=== PATIENT | male | born 1945 | race Caucasian/White ===

== ENCOUNTER 2019-01-12 23:00 | Emergency (ER) | payer MEDICAID, MEDICARE ==
[~2019-01-12] VITALS: Wt 92.0 kg
[~2019-01-12 23:00] MED LIST: amiodarone; metoprolol
== END 2019-01-12 23:30 | disposition left against medical advice (07) ==
LOC: E/R 23:00
DX: Z53.21 Procedure and treatment not carried out due to patient leaving prior to being seen by health care provider (principal)

== ENCOUNTER 2019-02-27 11:46 | Inpatient (IN) | payer MEDICARE, MEDICAID ==
[~2019-02-27] VITALS: Ht 180.3 cm; Wt 83.4 kg
[2019-02-27 11:47] VITALS: Ht 180.3 cm; Wt 83.4 kg
[2019-02-27] MEDS ORDERED: ASPIRIN 325 MG TAB PO ONE (13:00)
[2019-02-27] MEDS ORDERED: ASPIRIN 300 MG SUPP PR ONE (13:00)
[2019-02-27] MEDS ORDERED: ONDANSETRON 4 MG INJ IV PRN ×2 (13:00→14:00)
[2019-02-27] MEDS ORDERED: ACETAMINOPHEN 325 MG TAB PO PRN ×2 (13:00→14:00)
[2019-02-27] MEDS ORDERED: METO-429 PO (13:03)
[2019-02-27] MEDS ORDERED: DOXA4TAB3 PO (13:03)
[2019-02-27] MEDS ORDERED: DIVA-75 PO (13:03)
[2019-02-27] MEDS ORDERED: PRAV10TA43 PO (13:04)
[2019-02-27] MEDS ORDERED: QUET25TA33 PO (13:04)
[2019-02-27] MEDS ORDERED: DUTA0.5C PO (13:05)
[2019-02-27] MEDS ORDERED: ISEN400 PO (13:06)
[2019-02-27] MEDS ORDERED: ABAC1TAB14 PO (13:06)
[2019-02-27] MEDS ORDERED: AMIO200T4 PO (13:07)
--- NOTE | 2019-02-27 13:44 | ERD ---
ER Documentation Chief Complaint Chief Complaint FALL X 4 DAYS AGO , LT SIDE FACAIL DROOP NOTED , PALE HPI Patient is a 73-year-old male with coronary disease and hypertension who presents with a fall. The patient had a fall 4 days ago in the bathroom. He lives alone. He could get off the floor. He called the family member today. The family member reports that he had "slurred speech and trouble with walking and with writing". Upon review of old medical records this is the patient's fourth visit to the ER since 2012. The family members are concerned for stroke. The patient does not member the name of his primary doctor. ROS All systems reviewed and are negative except as per history of present illness. Medications Home Meds Reported Medications Amiodarone Hcl* (Amiodarone Hcl*) 200 Mg Tablet, 200 MG PO DAILY, #30 TAB 02/27/19 Raltegravir Potassium* (Isentress*) 400 Mg Tablet, 400 MG PO BID, TAB 02/27/19 Abacavir Sulfate/Lamivudine (Abacavir-Lamivudine 600-300 mg) 1 Each Tablet, 1 TAB PO DAILY 02/27/19 Dutasteride* (Avodart*) 0.5 Mg Capsule, 0.5 MG PO DAILY, CAP 02/27/19 Quetiapine Fumarate* (Quetiapine Fumarate*) 25 Mg Tablet, 25 MG PO BID, TAB 02/27/19 Pravastatin Sodium* (Pravastatin Sodium*) 10 Mg Tablet, 10 MG PO HS, TAB 02/27/19 Doxazosin Mesylate* (Doxazosin Mesylate*) 4 Mg Tablet, 4 MG PO HS, TAB 02/27/19 Metoprolol Tartrate* (Lopressor*) 50 Mg Tab, 50 MG PO BID, #60 TAB 02/27/19 Divalproex Sodium* (Depakote ER*) 500 Mg Tabsr, 500 MG PO BID, #30 TAB.SA 02/27/19 Discontinued Reported Medications [metoprolol] No Conflict Check 04/22/13 [amiodarone] No Conflict Check 04/22/13 Allergies Allergies: Coded Allergies: No Known Allergy (Unverified , 02/27/19) PMhx/Soc History of Surgery: No Anesthesia Reaction: No Hx Neurological Disorder: No Hx Respiratory Disorders: No Hx Cardiac Disorders: Yes (HTN,) Hx Psychiatric Problems: No Hx Miscellaneous Medical Probl: Yes (HIV,htn,BPH,nicotine,substance and ETOH addiction) Hx Alcohol Use: No Hx Substance Use: No Hx Tobacco Use: No Smoking Status: Unknown if ever smoked FmHx Family History: No diabetes Physical Exam Vitals Vital Signs Date Temp Pulse Resp B/P (MAP) Pulse Ox O2 O2 Flow FiO2 Time Delivery Rate 02/27/19 90 16 112/68 96 Nasal 2.0 12:55 (83) Cannula 02/27/19 Nasal 2 12:55 Cannula 02/27/19 97.7 98 18 82/60 (67) 98 11:47 Physical Exam Const: No acute distress Head: Atraumatic Eyes: Normal Conjunctiva ENT: Mild left-sided facial droop Neck: Full range of motion. No meningismus. Resp: Clear to auscultation bilaterally Cardio: Regular rate and rhythm, no murmurs Abd: Soft, non tender, non distended. 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 Result Diagram: 02/27/19 1216 02/27/19 1215 Results 24 hrs Laboratory Tests Test 02/27/19 12:15 02/27/19 12:16 Prothrombin Time 14.0 Sec Prothrombin Time Ratio 1.1 INR International Normalized Ratio 1.07 Activated Partial Thromboplast Time 26.8 Sec Sodium Level 129 mmol/L Potassium Level 4.0 mmol/L Chloride Level 94 mmol/L Carbon Dioxide Level 24 mmol/L Anion Gap 11 Blood Urea Nitrogen 84 mg/dl Creatinine 5.11 mg/dl Est Glomerular Filtrat Rate mL/min mL/min Glucose Level 125 mg/dl Calcium Level 8.8 mg/dl Troponin I 0.025 ng/ml Triglycerides Level 180 mg/dl Cholesterol Level 99 mg/dl LDL Cholesterol, Calculated 49 mg/dl HDL Cholesterol 14 mg/dl Cholesterol/HDL Ratio 7.0 RATIO White Blood Count 14.2 10^3/ul Red Blood Count 3.67 10^6/ul Hemoglobin 11.8 g/dl Hematocrit 33.2 % Mean Corpuscular Volume 90.5 fl Mean Corpuscular Hemoglobin 32.2 pg Mean Corpuscular Hemoglobin Concent 35.5 g/dl Red Cell Distribution Width 14.6 % Platelet Count 349 10^3/UL Mean Platelet Volume 10.2 fl Immature Granulocytes % 10.800 % Neutrophils % 69.7 % Lymphocytes % 10.8 % Monocytes % 8.2 % Eosinophils % 0.5 % Basophils % 0.0 % Nucleated Red Blood Cells % 0.0 /100WBC Immature Granulocytes # 1.530 10^3/ul Neutrophils # 9.9 10^3/ul Lymphocytes # 1.5 10^3/ul Monocytes # 1.2 10^3/ul Eosinophils # 0.1 10^3/ul Basophils # 0.0 10^3/ul Nucleated Red Blood Cells # 0.0 10^3/ul Hemoglobin A1c 6.1 % Current Medications Medications Dose Sig/Faith Start Time Status Last (Trade) Ordered Route PRN Stop Time Admin Dose Reason Admin Aspirin 325 mg ONCE ONCE 02/27/19 DC (Aspirin) PO 13:00 02/27/19 13:00 Ondansetron 4 mg ER BRIDGE 02/27/19 HCl (Zofran PRN IV 13:00 Inj) NAUSEA/VOMITI 02/28/19 12:59 NG 650 mg ER BRIDGE 02/27/19 Acetaminophen PRN PO 13:00 (Tylenol .MILD PAIN 02/28/19 12:59 Tab) 1-3 OR TEMP Aspirin 300 mg ONCE ONCE 02/27/19 DC (Aspirin) OH 13:00 02/27/19 13:01 Procedures/MDM CT brain read by radiology shows no bleed. Chest x-ray read by radiology. EKG read by me: Rate/Rhythm: Regular rate and rhythm at a regular rate Intervals: Normal Impression: Nonspecific T wave changes Patient is a 73-year-old male who presents with what appears to be an acute stroke. The symptoms started 4 days ago and he is outside the window for IV TPA or mechanical retrieval. He failed a swallow evaluation done by nursing so he was kept n.p.o. and the patient was given aspirin per rectum. NIH stroke scale was performed by nursing. Patient was found to have acute renal failure with a creatinine of over 5 and previous creatinines were approximately 1. CT brain shows no sign of brain mass or bleeding. The patient will be admitted to the care of Dr. López from the panel team to a telemetry inpatient bed. Critical Care: Time: 35 minutes excluding all billable procedures. Treatments/Evaluations: Close monitoring and treatment of unstable vital signs, cardiorespiratory, and neurologic status, while maintaining tight balance of fluid, respiratory, and cardiac interventions. Departure Diagnosis: Primary Impression: Stroke CVA mechanism: unspecified Qualified Codes: I63.9 - Cerebral infarction, unspecified Additional Impressions: ARF (acute renal failure) Acute renal failure type: unspecified Qualified Codes: N17.9 - Acute kidney failure, unspecified Hyponatremia Fall Encounter type: initial encounter Qualified Codes: W19.XXXA - Unspecified fall, initial encounter Condition: Serious NEWTON JAIME MD Feb 27, 2019 13:44
[2019-02-27] MEDS ORDERED: DEXTROSE 5%-0.45% NACL 1,000 ML IV SCH (13:45)
[2019-02-27] MEDS ORDERED: NACL 0.9% 3 ML SYG IV SCH (14:00)
[2019-02-27] MEDS ORDERED: DOCUSATE SODIUM 100 MG CAP PO PRN (14:00)
[2019-02-27] MEDS ORDERED: traMADol 50 MG TAB PO PRN (15:00)
[2019-02-27] MEDS ORDERED: CEFTRIAXONE 1 GM/50 ML (PMX) 50 ML IVPB SCH (15:30)
--- NOTE | 2019-02-27 15:43 | HP ---
Date/Time of Note Date/Time of Note DATE: 02/27/19 TIME: 15:19 Assessment/Plan VTE Prophylaxis SCD applied (from Nsg): Yes Pharmacological prophylaxis: NA/contraindicated Pharm contraindication: other Lines/Catheters IV Catheter Type (from Nrsg): Saline Lock Assessment/Plan Assessment/Plan 1. Slurred speech - concern for CVA but outside tPA given last known well time was 4 days ago - CT head negative for acute issues - Will check MRI head but will need to hold off on MRA given renal impairment - ECHO with bubble ordered - US carotids negative for stenosis - Speech/PT/OT ordered - continue on aspirin and statin 2. Acute renal failure - Renal US shows mild hydro and medical renal disease - Nephrology consultation was placed - Most likely prerenal given patient has not had PO intake in 4 days - will start LR for resuscitation and monitor for improvement in renal function - avoid nephrotoxic agents 3. Hypovolemic hyponatremia - IVF on board - will monitor 4. Prediabetes - diet modification - A1c noted 5. HIV - on HAART therapy - will consult ID for medication management - CD4 ordered 6. UTI - patient denies any complaints but Ua results noted - will check UCx - on Rocephin 7. BPH - continue home medications 8. sore throat - PRN cough drops 9. h/o Arrhythmia - hold all meds for permissive HTN in setting of ?CVA 10. HTN - holding home medications for now. will allow for permissive HTN. awaiting MRI results 11. Diet - NPO for now - await bedside evaluation 12. Disposition - Admit to telemetry for workup of acute slurred speech and renal failure Result Diagram: 02/27/19 1216 02/27/19 1215 Results 24hrs Laboratory Tests Test 02/27/19 12:15 02/27/19 12:16 02/27/19 13:57 Prothrombin Time 14.0 Prothrombin Time Ratio 1.1 INR International Normalized Ratio 1.07 Activated Partial Thromboplast Time 26.8 Sodium Level 129 L Potassium Level 4.0 Chloride Level 94 L Carbon Dioxide Level 24 Anion Gap 11 Blood Urea Nitrogen 84 H Creatinine 5.11 H Est Glomerular Filtrat Rate mL/min Glucose Level 125 Calcium Level 8.8 Troponin I 0.025 Triglycerides Level 180 H Cholesterol Level 99 L LDL Cholesterol, Calculated 49 HDL Cholesterol 14 L Cholesterol/HDL Ratio 7.0 White Blood Count 14.2 H Red Blood Count 3.67 L Hemoglobin 11.8 L Hematocrit 33.2 L Mean Corpuscular Volume 90.5 Mean Corpuscular Hemoglobin 32.2 Mean Corpuscular Hemoglobin Concent 35.5 Red Cell Distribution Width 14.6 H Platelet Count 349 Mean Platelet Volume 10.2 Immature Granulocytes % 10.800 H Neutrophils % 69.7 Segmented Neutrophils % (Manual) 71 Band Neutrophils % (Manual) 2 Lymphocytes % 10.8 L Lymphocytes % (Manual) 11 L Reactive Lymphocytes % (Manual) 3 H Monocytes % 8.2 Monocytes % (Manual) 10 Eosinophils % 0.5 Basophils % 0.0 Myelocytes % (Manual) 2 H Promyelocytes % (Manual) 1 H Nucleated Red Blood Cells % 0.0 Immature Granulocytes # 1.530 H Neutrophils # 9.9 H Neutrophils # (Manual) 10.1 H Band Neutrophils # 0.2 Lymphocytes (Manual) 1.5 Lymphocytes # 1.5 Reactive Lymphocytes # 0.4 H Monocytes # 1.2 H Monocytes # (Manual) 1.4 H Eosinophils # 0.1 Basophils # 0.0 Myelocytes # 0.2 H Promyelocytes # 0.1 H Nucleated Red Blood Cells # 0.0 Platelet Estimate NORMAL Anisocytosis 1+ Hemoglobin A1c 6.1 H Urine Color YELLOW Urine Clarity CLOUDY A Urine pH 5.0 Urine Specific [place] 1.006 Urine Ketones NEGATIVE Urine Nitrite NEGATIVE Urine Bilirubin NEGATIVE Urine Urobilinogen NEGATIVE Urine Leukocyte Esterase 3+ H Urine Microscopic RBC 14 H Urine Microscopic WBC > 182 H Urine Bacteria FEW A Urine Hemoglobin 2+ H Urine Glucose NEGATIVE Urine Total Protein NEGATIVE Urine Opiates Screen Negative Urine Barbiturates Negative Urine Amphetamines Screen Negative Urine Benzodiazepines Screen Negative Urine Cocaine Screen Negative Urine Cannabinoids Negative HPI/ROS Admit Date/Time Admit Date/Time 02/27/19 Hx of Present Illness 73 yo M with PMH HIV, hypertension, BPH, arrhythmia and multiple falls presented to ED after being found down after 4 days and noted with gait instability and slurred speech. Patient states he has fallen 3 times but cannot specify within what time frame. States he has been down for about 3 or 4 days and called his sister in law this am for Tylenol due to pain. Family at bedside and assisting with history. She states when she got to his home, she was calling out for him for awhile. When he opened the door she noticed unsteady gait and slurred speech. She convinced him to go to the ED for evaluation. Patient does not recall events leading up to fall but does admit he has been having difficulty speaking as well as texting for the past 3 days. He has not taken his medications or consumed any PO intake at this time as well. Patient admits to pain in mid back but denies any headaches, chest pain, shortness of breath, nausea, vomiting, abdominal pain, or urinary issues. Does admit to diminished appetite. Patient is confusing the name of his sister in law and having difficulty constructing full sentences. ROS All 12 systems reviewed and pertinent positives as per HPI. All others negat yeimi. Constitutional: No fatigue, No nausea Eyes: No discharge ENT: sore throat Respiratory: No pain, No cough, No shortness of breath, No sputum, No wheezing Cardiovascular: No chest pain, No lightheadedness, No palpitations Gastrointestinal: decreased appetite; No pain, No constipation, No diarrhea, No nausea, No vomiting Genitourinary: other (BPH) Musculoskeletal: back pain Skin: laceration Neurologic: confusion; No focal-weakness, No headache, No syncope Endocrine: no complaints Lymphatic: no complaints Psychological: nl mood/affect Immunologic: no complaints PMH/Family/Social Past Medical History Medical History: hypertension, other (BPH, HIV, arrhythmia) Medications Current Medications Ondansetron HCl (Zofran Inj) 4 mg ER BRIDGE PRN IV NAUSEA/VOMITING; Start 02/27/19 at 13:00; Stop 02/28/19 at 12:59 Acetaminophen (Tylenol Tab) 650 mg ER BRIDGE PRN PO .MILD PAIN 1-3 OR TEMP; Start 02/27/19 at 13:00; Stop 02/28/19 at 12:59 Abacavir/ Lamivudine (Epzicom) 1 tab DAILY PO ; Start 02/28/19 at 09:00; Status UNV Divalproex Sodium (Depakote Er) 500 mg BID PO ; Start 02/27/19 at 21:00; Status UNV Doxazosin Mesylate (Cardura) 4 mg HS PO ; Start 02/27/19 at 21:00; Status UNV Dutasteride (Avodart) 0.5 mg DAILY PO ; Start 02/28/19 at 09:00; Status UNV Quetiapine Fumarate (Seroquel) 25 mg BID PO ; Start 02/27/19 at 21:00; Status UNV Miscellaneous Medication (Isentress) 400 mg BID PO ; Start 02/27/19 at 21:00; Status UNV Miscellaneous Information 10 mg HS PO ; Start 02/27/19 at 21:00; Status UNV IV Flush (NS 3 ml) 3 ml PER PROTOCOL IV ; Start 02/27/19 at 14:00 Ondansetron HCl (Zofran Inj) 4 mg Q6H PRN IV NAUSEA/VOMITING; Start 02/27/19 at 14:00 Aspirin (Aspirin) 81 mg DAILY PO ; Start 02/28/19 at 09:00 Acetaminophen (Tylenol Tab) 650 mg Q6H PRN PO .PAIN 1-3 OR TEMP; Start 02/27/19 at 14:00 Docusate Sodium (Colace) 100 mg Q12H PRN PO .CONSTIPATION; Start 02/27/19 at 14:00 Magnesium Hydroxide (Milk Of Mag) 30 ml DAILY PRN PO .CONSTIPATION; Start 02/27/19 at 14:00 Famotidine (Pepcid Iv) 20 mg Q12 IV ; Start 02/27/19 at 21:00; Status UNV Lactated Ringer's 1,000 ml @ 100 mls/hr Q10H IV ; Start 02/27/19 at 14:00; Status UNV Tramadol HCl (Ultram) 50 mg Q6H PRN PO MODERATE PAIN LEVEL 4-6; Start 02/27/19 at 15:00; Status UNV Coded Allergies: No Known Allergy (Unverified , 02/27/19) Past Surgical History Past Surgical Hx: other (hernia repair december at [facility]) Family History Significant Family History: no pertinent family hx Social History Alcohol Use: none Smoking Status: Never smoker Drug Use: none Exam/Review of Systems Vital Signs Vitals Vital Signs Date Temp Pulse Resp B/P (MAP) Pulse Ox O2 O2 Flow FiO2 Time Delivery Rate 02/27/19 90 16 112/68 96 Nasal 2.0 12:55 (83) Cannula 02/27/19 97.7 11:47 Exam Exam General: Patient is well-developed well-nourished, no acute distress. mild confusion HEENT: Atraumatic, normocephalic. The pupils are equal, round and reactive. Extraocular motor are intact Neck: Supple with full range of motion. No rigidity or meningismus Chest: Nontender Lungs: Clear to auscultation bilaterally no crackles rales or wheezing Heart: Normal S1-S2, Regular rhythm and rate. No murmur, S3, or S4 Abdomen: Soft , nontender, nondistended , bowel sounds are present. No guarding no rebound tenderness , No masses or organomegaly. No costovertebral temporal angle mass Extremities: Normal to inspection, no edema no cyanosis Skin: abrasions on left forearm Neurologic: Slurred speech, cranial nerves II through XII are intact, motor and sensory are intact, no focal weakness Additional Comments Home medications reviewed PROCEDURE: US Carotids. CLINICAL INDICATION: Stroke. Bruit TECHNIQUE: Multiple sonographic of the carotid arteries were obtained utilizing morales scale imaging. Color and Doppler imaging was performed. The images were reviewed on a PACS workstation. COMPARISON: No prior studies are available for comparison. FINDINGS: RIGHT: CCA 76.5 cm/sec Prox ICA 41.1 cm/sec Mid ICA 42.6 cm/sec Dist ICA 30.7 cm/sec ECA 32.9 cm/sec ICA/CCA 0.9 LEFT: CCA 74.4 cm/sec Prox ICA 33.2 cm/sec Mid ICA 43.4 cm/sec Dist ICA 51.9 cm/sec ECA 53.9 cm/sec ICA/CCA 1.0 Antegrade flow is seen within the vertebral arteries bilaterally. Mild plaque is seen within the carotid system bilaterally. However, no evidence for hemodynamically significant stenosis or occlusion is identified. IMPRESSION: 1. Mild soft and calcific plaque without evidence for hemodynamically significant stenosis or occlusion by NASCET criteria. 2. Antegrade flow seen within the vertebral arteries bilaterally. Please note: The validated velocity measurements with angiographic measurements, velocity criteria are extrapolated from diameter data as defined by the Society of Radiologists in Ultrasound Consensus Conference Radiology 2003; 229;340-346. This study does indirectly reference the measurement of the distal ICA diameter as the denominator for stenosis measurement. RPTAT: HH .Ashley Diaz MD, MD Date Time Electronically viewed and signed by .Ashley Diaz MD, on 02/27/2019 14:51 PROCEDURE: CT Brain without contrast. CLINICAL INDICATION: Stroke TECHNIQUE: CT scan of the brain was performed on a multidetector high- resolution CT scan. Axial imaging was obtained of the brain without contrast administration. Coronal and sagittal reformatted images were obtained from the axial source images. Standard CT scan of the head without contrast protocols were performed. The total exam CTDI equals 38.38 mGy and the total exam DLP equals 634.23 mGy- cm. One or more of the following dose reduction techniques were used: - Automated exposure control. - Adjustment of the mA and/or kV according to patient size. Use of iterative reconstruction technique. Dicom images are available COMPARISON: CT head without contrast 04/22/2013 FINDINGS: There is streak motion artifact degrading optimal evaluation. The ventricular system and peripheral CSF spaces are proportionate prominent consistent with mo derate generalized cerebral and cerebellar volume loss. Mild periventricular deep white matter changes that is nonspecific and consistent with chronic microvascular ischemic disease. No evidence of intracranial masses hemorrhages or midline shift. Morales-white matter differentiation is unremarkable. The bones of the calvarium are intact. Visualized paranasal sinuses and mastoids are unremarkable. Calcific atherosclerotic vascular disease of the distal vertebral arteries and cavernous carotid arteries per IMPRESSION: 1. Artifact degrading optimal evaluation. 2. Moderate generalized cerebral and cerebellar volume loss and mild nonspecific chronic microvascular ischemic disease. 3. No evidence of intracranial masses hemorrhages or midline shift. Addendum: Dr. Downey was telephoned this results on 02/27/2019 at 1230 hours. RPTAT:AAJJ Physician Emperatriz Date Time Electronically viewed and signed by Physician Emperatriz on 02/27/2019 12:41 PROCEDURE: XR Chest. CLINICAL INDICATION: Chest pain. TECHNIQUE: Single frontal radiograph. COMPARISON: CR CHEST 04/22/2013. FINDINGS: Bibasilar atelectasis with retrocardiac atelectasis/consolidation and/or small left pleural effusion. The cardiac silhouette is enlarged and/or magnified in the context of low lung volumes. IMPRESSION: Bibasilar atelectasis with retrocardiac atelectasis/consolidation and/or small left pleural effusion. RPTAT: EE .Lawrence Euceda MD, Date Time Electronically viewed and signed by .Lawrence Euceda MD, on 02/27/2019 12:28 PROCEDURE: US Renal CLINICAL INDICATION: Renal failure TECHNIQUE: Multiple sonographic images of the kidneys and bladder were obtained. Evaluation of the kidneys and bladder was performed as well with morales scale and color and Doppler evaluation using a curved array transducer. The images were reviewed on a high-resolution PACS workstation. COMPARISON: No prior studies are available for comparison. FINDINGS: The right kidney measures 12.5 cm in length. There is mild right hydronephrosis. The left kidney measures 11.3 cm in length. The renal parenchyma demonstrates increased echogenicity. No perinephric fluid collection is seen. The bladder is under distended, but otherwise unremarkable. IMPRESSION: 1. Mild right hydronephrosis. 2. Echogenic kidneys suggesting medical renal disease. RPTAT: .Ashley Diaz MD, Date Time Electronically viewed and signed by .Ashley Diaz MD, on 02/27/2019 14:53 RAIN CARSON MD Feb 27, 2019 15:43
--- NOTE | 2019-02-27 16:35 | HP ---
Date/Time of Note Date/Time of Note DATE: 02/27/19 TIME: 16:26 Assessment/Plan VTE Prophylaxis SCD applied (from Nsg): Yes Lines/Catheters IV Catheter Type (from Nrsg): Saline Lock Assessment/Plan Result Diagram: 02/27/19 1216 02/27/19 1215 Results 24hrs Laboratory Tests Test 02/27/19 12:15 02/27/19 12:16 02/27/19 13:57 Prothrombin Time 14.0 Prothrombin Time Ratio 1.1 INR International Normalized Ratio 1.07 Activated Partial Thromboplast Time 26.8 Sodium Level 129 L Potassium Level 4.0 Chloride Level 94 L Carbon Dioxide Level 24 Anion Gap 11 Blood Urea Nitrogen 84 H Creatinine 5.11 H Est Glomerular Filtrat Rate mL/min Glucose Level 125 Calcium Level 8.8 Troponin I 0.025 Triglycerides Level 180 H Cholesterol Level 99 L LDL Cholesterol, Calculated 49 HDL Cholesterol 14 L Cholesterol/HDL Ratio 7.0 White Blood Count 14.2 H Red Blood Count 3.67 L Hemoglobin 11.8 L Hematocrit 33.2 L Mean Corpuscular Volume 90.5 Mean Corpuscular Hemoglobin 32.2 Mean Corpuscular Hemoglobin Concent 35.5 Red Cell Distribution Width 14.6 H Platelet Count 349 Mean Platelet Volume 10.2 Immature Granulocytes % 10.800 H Neutrophils % 69.7 Segmented Neutrophils % (Manual) 71 Band Neutrophils % (Manual) 2 Lymphocytes % 10.8 L Lymphocytes % (Manual) 11 L Reactive Lymphocytes % (Manual) 3 H Monocytes % 8.2 Monocytes % (Manual) 10 Eosinophils % 0.5 Basophils % 0.0 Myelocytes % (Manual) 2 H Promyelocytes % (Manual) 1 H Nucleated Red Blood Cells % 0.0 Immature Granulocytes # 1.530 H Neutrophils # 9.9 H Neutrophils # (Manual) 10.1 H Band Neutrophils # 0.2 Lymphocytes (Manual) 1.5 Lymphocytes # 1.5 Reactive Lymphocytes # 0.4 H Monocytes # 1.2 H Monocytes # (Manual) 1.4 H Eosinophils # 0.1 Basophils # 0.0 Myelocytes # 0.2 H Promyelocytes # 0.1 H Nucleated Red Blood Cells # 0.0 Platelet Estimate NORMAL Anisocytosis 1+ Hemoglobin A1c 6.1 H Creatine Kinase 271 H Urine Color YELLOW Urine Clarity CLOUDY A Urine pH 5.0 Urine Specific [place] 1.006 Urine Ketones NEGATIVE Urine Nitrite NEGATIVE Urine Bilirubin NEGATIVE Urine Urobilinogen NEGATIVE Urine Leukocyte Esterase 3+ H Urine Microscopic RBC 14 H Urine Microscopic WBC > 182 H Urine Bacteria FEW A Urine Hemoglobin 2+ H Urine Glucose NEGATIVE Urine Total Protein NEGATIVE Urine Opiates Screen Negative Urine Barbiturates Negative Urine Amphetamines Screen Negative Urine Benzodiazepines Screen Negative Urine Cocaine Screen Negative Urine Cannabinoids Negative HPI/ROS Admit Date/Time Admit Date/Time 02/27/19 Hx of Present Illness 73 yo M with PMH HIV, hypertension, BPH, arrhythmia and multiple falls presented to ED after being found down after 4 days and noted with gait instability and slurred speech. Patient states he has fallen 3 times but cannot specify within what time frame. States he has been down for about 3 or 4 days and called his sister in law this am for Tylenol due to pain. Family at bedside and assisting with history. She states when she got to his home, she was calling out for him for awhile. When he opened the door she noticed unsteady gait and slurred speech. She convinced him to go to the ED for evaluation. Patient does not recall events leading up to fall but does admit he has been having difficulty speaking as well as texting for the past 3 days. He has not taken his medicatio ns or consumed any PO intake at this time as well. Patient admits to pain in mid back but denies any headaches, chest pain, shortness of breath, nausea, vomiting, abdominal pain, or urinary issues. Does admit to diminished appetite. Patient is confusing the name of his sister in law and having difficulty constructing full sentences. ROS All 12 systems reviewed and pertinent positives as per HPI. All others negative. Constitutional: disoriented; No fatigue, No nausea Eyes: No discharge ENT: No congestion Respiratory: No cough, No shortness of breath, No sputum, No wheezing Cardiovascular: No chest pain, No lightheadedness, No palpitations Gastrointestinal: No pain, No constipation, No diarrhea, No nausea, No vomiting Genitourinary: no complaints Musculoskeletal: back pain Skin: laceration Neurologic: confusion; No focal-weakness, No headache Endocrine: no complaints Lymphatic: no complaints Psychological: nl mood/affect Immunologic: no complaints PMH/Family/Social Past Medical History Medical History: hypertension, other (BPH, HIV, arrhythmia) Medications Current Medications Ondansetron HCl (Zofran Inj) 4 mg ER BRIDGE PRN IV NAUSEA/VOMITING; Start 02/27/19 at 13:00; Stop 02/28/19 at 12:59 Acetaminophen (Tylenol Tab) 650 mg ER BRIDGE PRN PO .MILD PAIN 1-3 OR TEMP; Start 02/27/19 at 13:00; Stop 02/28/19 at 12:59 Abacavir/ Lamivudine (Epzicom) 1 tab DAILY PO ; Start 02/28/19 at 09:00; Status UNV Divalproex Sodium (Depakote Er) 500 mg BID PO ; Start 02/27/19 at 21:00; Status UNV Doxazosin Mesylate (Cardura) 4 mg HS PO ; Start 02/27/19 at 21:00; Status UNV Dutasteride (Avodart) 0.5 mg DAILY PO ; Start 02/28/19 at 09:00; Status UNV Quetiapine Fumarate (Seroquel) 25 mg BID PO ; Start 02/27/19 at 21:00; Status UNV Miscellaneous Medication (Isentress) 400 mg BID PO ; Start 02/27/19 at 21:00; Status UNV Miscellaneous Information 10 mg HS PO ; Start 02/27/19 at 21:00; Status UNV IV Flush (NS 3 ml) 3 ml PER PROTOCOL IV ; Start 02/27/19 at 14:00 Ondansetron HCl (Zofran Inj) 4 mg Q6H PRN IV NAUSEA/VOMITING; Start 02/27/19 at 14:00 Aspirin (Aspirin) 81 mg DAILY PO ; Start 02/28/19 at 09:00 Acetaminophen (Tylenol Tab) 650 mg Q6H PRN PO .PAIN 1-3 OR TEMP; Start 02/27/19 at 14:00 Docusate Sodium (Colace) 100 mg Q12H PRN PO .CONSTIPATION; Start 02/27/19 at 14:00 Magnesium Hydroxide (Milk Of Mag) 30 ml DAILY PRN PO .CONSTIPATION; Start 02/27/19 at 14:00 Famotidine (Pepcid Iv) 20 mg Q12 IV ; Start 02/27/19 at 21:00; Status UNV Lactated Ringer's 1,000 ml @ 100 mls/hr Q10H IV ; Start 02/27/19 at 14:00; Status UNV Tramadol HCl (Ultram) 50 mg Q6H PRN PO MODERATE PAIN LEVEL 4-6; Start 02/27/19 at 15:00; Status UNV Coded Allergies: No Known Allergy (Unverified , 02/27/19) Past Surgical History Past Surgical Hx: other (hernia repair tian at [facility]) Family History Significant Family History: no pertinent family hx Social History Alcohol Use: none Smoking Status: Never smoker Drug Use: none Exam/Review of Systems Vital Signs Vitals Vital Signs Date Temp Pulse Resp B/P (MAP) Pulse Ox O2 O2 Flow FiO2 Time Delivery Rate 02/27/19 90 16 112/68 96 Nasal 2.0 12:55 (83) Cannula 02/27/19 97.7 11:47 Exam Exam General: Patient is well-developed well-nourished. no acute distress. slurred speech and pleasantly confused HEENT: Atraumatic, normocephalic. The pupils are equal, round and reactive. Extraocular motor are intact Neck: Supple with full range of motion. No rigidity or meningismus Chest: Nontender Lungs: Clear to auscultation bilaterally no crackles rales or wheezing Heart: Normal S1-S2, Regular rhythm and rate. No murmur, S3, or S4 Abdomen: Soft , nontender, nondistended , bowel sounds are present. No guarding no rebound tenderness , No masses or organomegaly. No costovertebral temporal angle mass Extremities: Normal to inspection, no edema no cyanosis Neurologic: Normal mental status, speech normal, cranial nerves II through XII are intact, motor and sensory are intact, no focal weakness RAIN CARSON MD Feb 27, 2019 16:34
[2019-02-27] MEDS: LACTATED RINGER'S 1,000 ML IV SCH (16:57)
[2019-02-27] MEDS: ABACAVIR/LAMIVUDINE TAB PO SCH (17:06)
[2019-02-27] MEDS: RALTEGRAVIR 400 MG TAB PO SCH ×2 (17:06→21:00)
[2019-02-27 18:42] VITALS: PULSE 93
[2019-02-27 20:00] VITALS: BP 131/65; PULSE 88; PULSE 89
[2019-02-27 20:40] VITALS: BP 131/65; PULSE 89; RESP 18
[2019-02-27] MEDS ORDERED: RALTEGRAVIR 400 MG TAB PO SCH (21:00)
[2019-02-27] MEDS: DIVALPROEX (ER) 500 MG TAB PO SCH (21:00)
[2019-02-27] MEDS: ATORVASTATIN 10 MG TAB PO SCH (21:00)
[2019-02-27] MEDS: QUETIAPINE 25 MG TAB PO SCH (21:00)
[2019-02-27] MEDS: DOXAZOSIN 4 MG TAB PO SCH (21:00)
[2019-02-27 23:54] VITALS: BP 105/62; PULSE 80
[2019-02-28] VITALS (11 sets, daily range): BP systolic 106–123; BP diastolic 63–74; PULSE 64–119; RESP 18–20
[2019-02-28] MEDS: LACTATED RINGER'S 1,000 ML IV SCH ×3 (02:06→17:42)
--- NOTE | 2019-02-28 05:09 | CONS ---
DATE OF ADMISSION: 02/27/2019 DATE OF CONSULTATION: 02/27/2019 TYPE OF CONSULTATION: Infectious disease. REASON FOR CONSULTATION: Antibiotic management. HISTORY OF PRESENT ILLNESS: Boogie Watters is a 73-year-old male who presents with a fall 4 days ago. His past problems include: 1. Coronary artery disease. 2. Hypertension. The patient had a fall 4 days ago in the bathroom. Family member reports that he had slurred speech and trouble with walking and writing family is concerned about the possibility of stroke. He does no t remember the name of his primary doctor. Past problems include: 1. HIV. 2. Hypertension. 3. BPH. 4. Nicotine abuse. 5. Substance abuse and alcohol addiction. Acutely, the patient comes in with slurred speech as noted. He also has a left-sided facial droop. PAST MEDICAL HISTORY: As outlined. FAMILY HISTORY: Noncontributory. SOCIAL HISTORY: He does not smoke, drink or abuse drugs at this point though in the past he did all of that. ALLERGIES: None to penicillin, sulfa or foods. MEDICATIONS: Per chart. REVIEW OF SYSTEMS: As per HPI. PHYSICAL EXAMINATION: GENERAL: The patient is in no acute distress. VITAL SIGNS: Stable. He is afebrile. SKIN: Without generalized rash. HEENT: Within normal limits. He has a mild left-sided facial droop; however. NECK: Supple. LYMPH NODES: None palpable. CHEST: Decreased breath sounds at the bases. HEART: Without murmur or gallop. ABDOMEN: Soft, nontender, nondistended, without organosplenomegaly or masses. EXTREMITIES: Without cyanosis, clubbing, or edema. RECTAL AND GENITAL: Deferred. NEUROLOGIC: He is awake. He has slurred speech. He has solutions manager strength, decreased in the left compar ed to the right. ANCILLARY LABORATORY DATA: White count 14.2, H and H 11.8/33.2, platelet count 349,000. BUN and cre atinine 84/5.1. He had 70% neutrophils. IMPRESSION AND PLAN: The patient is on Abacavir lamivudine and he is also on raltegravir which is Is entress 400 mg b.i.d. and it appears that he has had an acute stroke which started 4 days ago. He fa iled a swallow evaluation, so he was kept n.p.o. Patient also noted to have acute renal failure with BUN and creatinine of 84/5.1, which may be related to rhabdomyolysis. CT scan of the brain shows no sign of brain mass or bleeding. The patient was admitted to Dr. López with some slurred speech. M RI scan was ordered. An echo was ordered. Carotid ultrasound negative for stenosis. Renal ultrasou nd shows mild hydronephrosis, medical renal disease. Nephrology consult. The patient was placed. T he patient most likely prerenal given the patient has not had p.o. intake in 4 days. I would check f or rhabdomyolysis. The patient is on HAART therapy. CD4 count was ordered. Urinalysis was done whi ch shows 3+ leukocyte esterase, greater than 182 white cells per high powered field. The patient was started on ceftriaxone. We will continue him on current therapy. I will dictate my findings to the hospitalists. Dictated By: VENICE TOTH MD, JD/NTS Conf#: [id number] DID#: [id number] CC: RAIN LÓPEZ MD;*EndCC*
[2019-02-28] MEDS: MAGNESIUM HYDROXIDE 30ML CUP PO PRN (08:39)
[2019-02-28] MEDS: DUTASTERIDE 0.5 MG CAP PO SCH (08:40)
[2019-02-28] MEDS: QUETIAPINE 25 MG TAB PO SCH ×2 (08:40→21:10)
[2019-02-28] MEDS: ABACAVIR/LAMIVUDINE TAB PO SCH (08:40)
[2019-02-28] MEDS: ASPIRIN 81 MG TAB PO SCH (08:40)
[2019-02-28] MEDS: RALTEGRAVIR 400 MG TAB PO SCH ×2 (08:40→21:08)
[2019-02-28] MEDS: DIVALPROEX (ER) 500 MG TAB PO SCH ×2 (08:40→21:10)
[2019-02-28] MEDS: FAMOTIDINE 20 MG INJ IV SCH (08:41)
[2019-02-28] MEDS ORDERED: ABACAVIR/LAMIVUDINE TAB PO SCH (09:00)
--- NOTE | 2019-02-28 10:35 | PN ---
Date/Time of Note Date/Time of Note DATE: 02/28/19 TIME: 10:35 Assessment/Plan VTE Prophylaxis Risk score (from Nsg)>0 risk: 4 SCD applied (from Nsg): Yes Pharmacological prophylaxis: NA/contraindicated Pharm contraindication: low risk/ambulating Lines/Catheters IV Catheter Type (from Nrsg): Saline Lock Urinary Cath still in place: No Assessment/Plan Assessment/Plan 1. Slurred speech- improving - MRI head negative for acute stroke. Unable to do MRA at this time in setting of renal failure - UTI noted and may be contributing to confusion which is improving - CT head negative for acute issues - ECHO results pending - US carotids negative for stenosis - Speech/PT/OT ordered - continue on aspirin and statin 2. Acute renal failure - mild improvement in cr this am - Renal US shows mild hydro and medical renal disease - Nephrology consultation was placed - Most likely prerenal given patient has not had PO intake in 4 days - continue IVF - avoid nephrotoxic agents 3. Hypovolemic hyponatremia- resolved 4. Prediabetes - diet modification - A1c noted 5. HIV - on HAART therapy - ID consultation appreciated - CD4 ordered 6. UTI - Urine Cx pending - on Rocephin 7. BPH - continue home medications 8. sore throat - PRN cough drops 9. h/o Arrhythmia - hold all meds for permissive HTN in setting of ?CVA 10. HTN - stable off BP medications 11. Disposition - awaiting bedside swallow eval to advance diet - continue monitoring for improvement in renal function and slurred speech Result Diagram: 02/28/19 0544 02/28/19 0544 Results 24hrs Laboratory Tests Test 02/27/19 12:15 02/27/19 12:16 02/27/19 13:57 02/28/19 05:44 Prothrombin Time 14.0 Prothrombin Time 1.1 Ratio INR International 1.07 Normalized Ratio Activated 26.8 Partial Thromboplast Time Sodium Level 129 L 138 Potassium Level 4.0 3.7 Chloride Level 94 L 100 Carbon Dioxide Level 24 24 Anion Gap 11 14 H Blood Urea Nitrogen 84 H 81 H Creatinine 5.11 H 4.29 H Est Glomerular Filtrat Rate mL/min Glucose Level 125 113 Calcium Level 8.8 8.6 Troponin I 0.025 Triglycerides Level 180 H Cholesterol Level 99 L LDL Cholesterol, 49 Calculated HDL Cholesterol 14 L Cholesterol/HDL 7.0 Ratio White Blood Count 14.2 H 15.3 H Red Blood Count 3.67 L 3.88 L Hemoglobin 11.8 L 12.3 L Hematocrit 33.2 L 35.2 L Mean Corpuscular 90.5 90.7 Volume Mean Corpuscular 32.2 31.7 Hemoglobin Mean Corpuscular 35.5 34.9 Hemoglobin Concent Red Cell 14.6 H 15.2 H Distribution Width Platelet Count 349 390 Mean Platelet Volume 10.2 10.0 Immature 10.800 H 10.100 H Granulocytes % Neutrophils % 69.7 71.5 Segmented 71 74 Neutrophils % (Manual) Band Neutrophils % 2 1 (Manual) Lymphocytes % 10.8 L 9.4 L Lymphocytes % 11 L 7 L (Manual) Reactive Lymphocytes 3 H 2 H % (Manual) Monocytes % 8.2 8.3 Monocytes % (Manual) 10 9 Eosinophils % 0.5 0.1 Basophils % 0.0 0.6 Myelocytes % 2 H 1 H (Manual) Promyelocytes % 1 H (Manual) Nucleated Red Blood 0.0 0.0 Cells % Immature 1.530 H 1.540 H Granulocytes # Neutrophils # 9.9 H 10.9 H Neutrophils # 10.1 H 11.3 H (Manual) Band Neutrophils # 0.2 0.1 Lymphocytes (Manual) 1.5 1.0 Lymphocytes # 1.5 1.4 Reactive Lymphocytes 0.4 H 0.3 H # Monocytes # 1.2 H 1.3 H Monocytes # (Manual) 1.4 H 1.3 H Eosinophils # 0.1 0.0 Basophils # 0.0 0.1 Myelocytes # 0.2 H 0.1 H Promyelocytes # 0.1 H Nucleated Red Blood 0.0 0.0 Cells # Platelet Estimate NORMAL NORMAL Anisocytosis 1+ 1+ Hemoglobin A1c 6.1 H Creatine Kinase 271 H Urine Color YELLOW Urine Clarity CLOUDY A Urine pH 5.0 Urine Specific 1.006 [place] Urine Ketones NEGATIVE Urine Nitrite NEGATIVE Urine Bilirubin NEGATIVE Urine Urobilinogen NEGATIVE Urine Leukocyte 3+ H Esterase Urine Microscopic 14 H RBC Urine Microscopic > 182 H WBC Urine Bacteria FEW A Urine Hemoglobin 2+ H Urine Glucose NEGATIVE Urine Total Protein NEGATIVE Urine Opiates Screen Negative Urine Barbiturates Negative Urine Amphetamines Negative Screen Urine Negative Benzodiazepines Screen Urine Cocaine Screen Negative Urine Cannabinoids Negative Eosinophils % 1 (Manual) Metamyelocytes % 5 H (manual) Metamyelocytes # 0.7 H Toxic Granulation 1+ Magnesium Level 3.1 H Total Bilirubin 0.5 Direct Bilirubin 0.00 Indirect Bilirubin 0.5 Aspartate Amino 52 H Transf (AST/SGOT) Alanine 60 Aminotransferase (AL T/SGPT) Alkaline Phosphatase 130 H Total Protein 6.5 Albumin 2.8 L Globulin 3.70 H Albumin/Globulin 0.75 Ratio Subjective 24 Hr Interval Summary Free Text/Dictation Patient states he's feeling better this am but asking for some companionship. Still with slight slurred speech but oriented x4. Exam/Review of Systems Exam Vitals Vital Signs Date Temp Pulse Resp B/P (MAP) Pulse Ox O2 O2 Flow FiO2 Time Delivery Rate 02/28/19 95 08:00 02/28/19 97.6 18 112/63 90 07:17 (79) 02/27/19 Nasal 2.0 18:12 Cannula Exam General: Patient is well-developed well-nourished, no acute distress Neck: Supple Chest: Nontender Lungs: Clear to auscultation bilaterally no crackles rales or wheezing Heart: Normal S1-S2, Regular rhythm and rate. No murmur, S3, or S4 Abdomen: Soft , nontender, nondistended , bowel sounds are present. No guarding no rebound tenderness Extremities: Normal to inspection, no edema no cyanosis Skin: abrasions on left forearm Neurologic: Mildly slurred speech, cranial nerves II through XII are intact, motor and sensory are intact, no focal weakness Results Results 24hrs Laboratory Tests Test 02/27/19 12:15 02/27/19 12:16 02/27/19 13:57 02/28/19 05:44 Prothrombin Time 14.0 Prothrombin Time 1.1 Ratio INR International 1.07 Normalized Ratio Activated 26.8 Partial Thromboplast Time Sodium Level 129 L 138 Potassium Level 4.0 3.7 Chloride Level 94 L 100 Carbon Dioxide Level 24 24 Anion Gap 11 14 H Blood Urea Nitrogen 84 H 81 H Creatinine 5.11 H 4.29 H Est Glomerular Filtrat Rate mL/min Glucose Level 125 113 Calcium Level 8.8 8.6 Troponin I 0.025 Triglycerides Level 180 H Cholesterol Level 99 L LDL Cholesterol, 49 Calculated HDL Cholesterol 14 L Cholesterol/HDL 7.0 Ratio White Blood Count 14.2 H 15.3 H Red Blood Count 3.67 L 3.88 L Hemoglobin 11.8 L 12.3 L Hematocrit 33.2 L 35.2 L Mean Corpuscular 90.5 90.7 Volume Mean Corpuscular 32.2 31.7 Hemoglobin Mean Corpuscular 35.5 34.9 Hemoglobin Concent Red Cell 14.6 H 15.2 H Distribution Width Platelet Count 349 390 Mean Platelet Volume 10.2 10.0 Immature 10.800 H 10.100 H Granulocytes % Neutrophils % 69.7 71.5 Segmented 71 74 Neutrophils % (Manual) Band Neutrophils % 2 1 (Manual) Lymphocytes % 10.8 L 9.4 L Lymphocytes % 11 L 7 L (Manual) Reactive Lymphocytes 3 H 2 H % (Manual) Monocytes % 8.2 8.3 Monocytes % (Manual) 10 9 Eosinophils % 0.5 0.1 Basophils % 0.0 0.6 Myelocytes % 2 H 1 H (Manual) Promyelocytes % 1 H (Manual) Nucleated Red Blood 0.0 0.0 Cells % Immature 1.530 H 1.540 H Granulocytes # Neutrophils # 9.9 H 10.9 H Neutrophils # 10.1 H 11.3 H (Manual) Band Neutrophils # 0.2 0.1 Lymphocytes (Manual) 1.5 1.0 Lymphocytes # 1.5 1.4 Reactive Lymphocytes 0.4 H 0.3 H # Monocytes # 1.2 H 1.3 H Monocytes # (Manual) 1.4 H 1.3 H Eosinophils # 0.1 0.0 Basophils # 0.0 0.1 Myelocytes # 0.2 H 0.1 H Promyelocytes # 0.1 H Nucleated Red Blood 0.0 0.0 Cells # Platelet Estimate NORMAL NORMAL Anisocytosis 1+ 1+ Hemoglobin A1c 6.1 H Creatine Kinase 271 H Urine Color YELLOW Urine Clarity CLOUDY A Urine pH 5.0 Urine Specific 1.006 [place] Urine Ketones NEGATIVE Urine Nitrite NEGATIVE Urine Bilirubin NEGATIVE Urine Urobilinogen NEGATIVE Urine Leukocyte 3+ H Esterase Urine Microscopic 14 H RBC Urine Microscopic > 182 H WBC Urine Bacteria FEW A Urine Hemoglobin 2+ H Urine Glucose NEGATIVE Urine Total Protein NEGATIVE Urine Opiates Screen Negative Urine Barbiturates Negative Urine Amphetamines Negative Screen Urine Negative Benzodiazepines Screen Urine Cocaine Screen Negative Urine Cannabinoids Negative Eosinophils % 1 (Manual) Metamyelocytes % 5 H (manual) Metamyelocytes # 0.7 H Toxic Granulation 1+ Magnesium Level 3.1 H Total Bilirubin 0.5 Direct Bilirubin 0.00 Indirect Bilirubin 0.5 Aspartate Amino 52 H Transf (AST/SGOT) Alanine 60 Aminotransferase (AL T/SGPT) Alkaline Phosphatase 130 H Total Protein 6.5 Albumin 2.8 L Globulin 3.70 H Albumin/Globulin 0.75 Ratio Medications Medication Current Medications Ondansetron HCl (Zofran Inj) 4 mg ER BRIDGE PRN IV NAUSEA/VOMITING; Start at 13:00; Stop 02/28/19 at 12:59 Acetaminophen (Tylenol Tab) 650 mg ER BRIDGE PRN PO .MILD PAIN 1-3 OR TEMP; Start 02/27/19 at 13:00; Stop 02/28/19 at 12:59 Divalproex Sodium (Depakote Er) 500 mg BID PO Last administered on 02/28/19at 08:40; Admin Dose 500 MG; Start 02/27/19 at 21:00 Doxazosin Mesylate (Cardura) 4 mg HS PO ; Start 02/27/19 at 21:00 Dutasteride (Avodart) 0.5 mg DAILY PO Last administered on 02/28/19at 08:40; Admin Dose 0.5 MG; Start 02/28/19 at 09:00 Quetiapine Fumarate (Seroquel) 25 mg BID PO Last administered on 02/28/19at 08:40; Admin Dose 25 MG; Start 02/27/19 at 21:00 Atorvastatin Calcium (Lipitor) 10 mg DAILY@21 PO ; Start 02/27/19 at 21:00 IV Flush (NS 3 ml) 3 ml PER PROTOCOL IV ; Start 02/27/19 at 14:00 Ondansetron HCl (Zofran Inj) 4 mg Q6H PRN IV NAUSEA/VOMITING; Start 02/27/19 at 14:00 Aspirin (Aspirin) 81 mg DAILY PO Last administered on 02/28/19at 08:40; Admin Dose 81 MG; Start 02/28/19 at 09:00 Acetaminophen (Tylenol Tab) 650 mg Q6H PRN PO .PAIN 1-3 OR TEMP; Start 02/27/19 at 14:00 Docusate Sodium (Colace) 100 mg Q12H PRN PO .CONSTIPATION Last administered on 02/28/19at 08:39; Admin Dose 100 MG; Start 02/27/19 at 14:00 Magnesium Hydroxide (Milk Of Mag) 30 ml DAILY PRN PO .CONSTIPATION Last administered on 02/28/19 08:39; Admin Dose 30 ML; Start 02/27/19 at 14:00 Famotidine (Pepcid Iv) 20 mg DAILY IV Last administered on 02/28/19 08:41; Admin Dose 20 MG; Start 02/28/19 at 09:00 Lactated Ringer's 1,000 ml @ 100 mls/hr Q10H IV Last administered on 02/28/19at 02:06; Admin Dose 100 MLS/HR; Start 02/27/19 at 14:00 Tramadol HCl (Ultram) 50 mg Q6H PRN PO MODERATE PAIN LEVEL 4-6; Start 02/27/19 at 15:00 Ceftriaxone Sodium 50 ml @ 100 mls/hr Q24H IVPB Last administered on 02/27/19at 16:56; Admin Dose 100 MLS/HR; Start 02/27/19 at 15:30 Abacavir/ Lamivudine (Epzicom) 1 tab DAILY PO Last administered on 02/28/19at 08:40; Admin Dose 1 TAB; Start 02/27/19 at 16:00 Miscellaneous Medication (Isentress) 400 mg BID PO Last administered on 02/13 08:40; Admin Dose 400 MG; Start 02/27/19 at 16:00 Phenol (Cepastat Lozenge) 1 lozenge Q1H PRN MT sore throat; Start 02/27/19 at 15:30 RAIN CARSON MD Feb 28, 2019 10:35
--- NOTE | 2019-02-28 12:33 | CONS ---
Assessment/Plan Assessment/Plan Hospital Course (Demo Recall) 1. nonoliguric VIRY on CKD: - VIRY possibly due to hydronephrosis and hemodynamic changes - check urine lytes - cont ivf - will also check ct a/p - all meds renally dosed 2. UTI: - cont abx - ct as above - f/u cx 3. hypovolemic hyponatremia: - improved with ivf - monitor NA 4. anemia: due to anemia of chronic disease - monitor hg 5. Bone Mineral Disease: - monitor ca and phos 6. slurred speech: - head ct, mri brain and carotid us reviewed - echo pending - possibly due to uti? 7. HIV: - restart haart per ID 8. BPH: - cont current meds Consultation Date/Type/Reason Admit Date/Time 02/27/19 Type of Consult nephrology Reason for Consultation viry on ckd Date/Time of Note DATE: 02/28/19 TIME: 12:26 Hx of Present Illness 73 yo M with PMH HIV, hypertension, BPH, arrhythmia and multiple falls presented to ED after being found down after 4 days and noted with gait instability and slurred speech. head ct, carotid US and MRI of brain does not show acute pathology. Labs significant for bun/cr of 84/5.11 with Na of 129. UA suggestive of pyuria. pt was given ivf and abx and admitted for further evaluation. Pt states that he has known CKD although he is unable to quantity the degree of ckd. He denies dysuria, n/v or f/c. He also denies shortness of breath ROS All 12 systems reviewed and pertinent positives as per HPI. All others negative. Constitutional: No fatigue, No nausea Eyes: No discharge ENT: sore throat Respiratory: No pain, No cough, No shortness of breath, No sputum, No wheezing Cardiovascular: No chest pain, No lightheadedness, No palpitations Gastrointestinal: decreased appetite; No pain, No constipation, No diarrhea, No nausea, No vomiting Genitourinary: other (BPH) Musculoskeletal: back pain Skin: laceration Neurologic: confusion; No focal-weakness, No headache, No syncope Endocrine: no complaints Lymphatic: no complaints Psychological: nl mood/affect Immunologic: no complaints PMH/Family/Social PMH/Family/Social Past Medical History Medical History: hypertension, other (BPH, HIV, arrhythmia) Medications MODERATE PAIN LEVEL 4-6; Start 02/27/19 at 15:00; Status UNV Coded Allergies: No Known Allergy (Unverified , 02/27/19) Past Surgical History Past Surgical Hx: other (hernia repair december at [facility]) Family History Significant Family History: no pertinent family hx Social History Alcohol Use: none Smoking Status: Never smoker Drug Use: none Past Medical History Medical History: hypertension, other (BPH, HIV, arrhythmia) Home Meds Reported Medications Amiodarone Hcl* (Amiodarone Hcl*) 200 Mg Tablet, 200 MG PO DAILY, #30 TAB 02/27/19 Raltegravir Potassium* (Isentress*) 400 Mg Tablet, 400 MG PO BID, TAB 02/27/19 Abacavir Sulfate/Lamivudine (Abacavir-Lamivudine 600-300 mg) 1 Each Tablet, 1 TAB PO DAILY 02/27/19 Dutasteride* (Avodart*) 0.5 Mg Capsule, 0.5 MG PO DAILY, CAP 02/27/19 Quetiapine Fumarate* (Quetiapine Fumarate*) 25 Mg Tablet, 25 MG PO BID, TAB 02/27/19 Pravastatin Sodium* (Pravastatin Sodium*) 10 Mg Tablet, 10 MG PO HS, TAB 02/27/19 Doxazosin Mesylate* (Doxazosin Mesylate*) 4 Mg Tablet, 4 MG PO HS, TAB 02/27/19 Metoprolol Tartrate* (Lopressor*) 50 Mg Tab, 50 MG PO BID, #60 TAB 02/27/19 Divalproex Sodium* (Depakote ER*) 500 Mg Tabsr, 500 MG PO BID, #30 TAB.SA 02/27/19 Discontinued Reported Medications [metoprolol] No Conflict Check 04/22/13 [amiodarone] No Conflict Check 04/22/13 Medications Current Medications Ondansetron HCl (Zofran Inj) 4 mg ER BRIDGE PRN IV NAUSEA/VOMITING; Start 02/27/19 at 13:00; Stop 02/28/19 at 12:59 Acetaminophen (Tylenol Tab) 650 mg ER BRIDGE PRN PO .MILD PAIN 1-3 OR TEMP; Start 02/27/19 at 13:00; Stop 02/28/19 at 12:59 Divalproex Sodium (Depakote Er) 500 mg BID PO Last administered on 02/28/19at 08:40; Admin Dose 500 MG; Start 02/27/19 at 21:00 Doxazosin Mesylate (Cardura) 4 mg HS PO ; Start 02/27/19 at 21:00 Dutasteride (Avodart) 0.5 mg DAILY PO Last administered on 02/28/19at 08:40; Admin Dose 0.5 MG; Start 02/28/19 at 09:00 Quetiapine Fumarate (Seroquel) 25 mg BID PO Last administered on 02/28/19 08: 40; Admin Dose 25 MG; Start 02/27/19 at 21:00 Atorvastatin Calcium (Lipitor) 10 mg DAILY@21 PO ; Start 02/27/19 at 21:00 IV Flush (NS 3 ml) 3 ml PER PROTOCOL IV ; Start 02/27/19 at 14:00 Ondansetron HCl (Zofran Inj) 4 mg Q6H PRN IV NAUSEA/VOMITING; Start 02/27/19 at 14:00 Aspirin (Aspirin) 81 mg DAILY PO Last administered on 02/28/19 08:40; Admin Dose 81 MG; Start 02/28/19 at 09:00 Acetaminophen (Tylenol Tab) 650 mg Q6H PRN PO .PAIN 1-3 OR TEMP; Start 02/27/19 at 14:00 Docusate Sodium (Colace) 100 mg Q12H PRN PO .CONSTIPATION Last administered on 02/28/19 08:39; Admin Dose 100 MG; Start 02/27/19 at 14:00 Magnesium Hydroxide (Milk Of Mag) 30 ml DAILY PRN PO .CONSTIPATION Last administered on 02/28/19 08:39; Admin Dose 30 ML; Start 02/27/19 at 14:00 Famotidine (Pepcid Iv) 20 mg DAILY IV Last administered on 02/28/19 08:41; Admin Dose 20 MG; Start 02/28/19 at 09:00 Lactated Ringer's 1,000 ml @ 100 mls/hr Q10H IV Last administered on 02/28/19at 02:06; Admin Dose 100 MLS/HR; Start 02/27/19 at 14:00 Tramadol HCl (Ultram) 50 mg Q6H PRN PO MODERATE PAIN LEVEL 4-6; Start 02/27/19 at 15:00 Ceftriaxone Sodium 50 ml @ 100 mls/hr Q24H IVPB Last administered on 02/27/19at 16:56; Admin Dose 100 MLS/HR; Start 02/27/19 at 15:30 Abacavir/ Lamivudine (Epzicom) 1 tab DAILY PO Last administered on 02/28/19at 08:40; Admin Dose 1 TAB; Start 02/27/19 at 16:00 Miscellaneous Medication (Isentress) 400 mg BID PO Last administered on 02/28/19at 08:40; Admin Dose 400 MG; Start 02/27/19 at 16:00 Phenol (Cepastat Lozenge) 1 lozenge Q1H PRN MT sore throat; Start 02/27/19 at 15:30 Allergies: Coded Allergies: No Known Allergy (Unverified , 02/27/19) Past Surgical History Past Surgical Hx: other (hernia repair december at [facility]) Social History Alcohol Use: none Smoking Status: Unknown if ever smoked Drug Use: none Exam/Review of Systems Exam Vitals Vital Signs Date Temp Pulse Resp B/P (MAP) Pulse Ox O2 O2 Flow FiO2 Time Delivery Rate 02/28/19 98.0 87 19 116/71 96 11:33 (86) 02/27/19 Nasal 2.0 18:12 Cannula Exam gen nad cv rrr pulm ctab abd soft ,nd, nt +bs ext: no edema Results Result Diagram: 02/28/1944 02/28/19 0544 Results 24hrs Laboratory Tests Test 02/27/19 13:57 02/28/19 05:44 Urine Color YELLOW Urine Clarity CLOUDY A Urine pH 5.0 Urine Specific [place] 1.006 Urine Ketones NEGATIVE Urine Nitrite NEGATIVE Urine Bilirubin NEGATIVE Urine Urobilinogen NEGATIVE Urine Leukocyte Esterase 3+ H Urine Microscopic RBC 14 H Urine Microscopic WBC > 182 H Urine Bacteria FEW A Urine Hemoglobin 2+ H Urine Glucose NEGATIVE Urine Total Protein NEGATIVE Urine Opiates Screen Negative Urine Barbiturates Negative Urine Amphetamines Screen Negative Urine Benzodiazepines Screen Negative Urine Cocaine Screen Negative Urine Cannabinoids Negative White Blood Count 15.3 H Red Blood Count 3.88 L Hemoglobin 12.3 L Hematocrit 35.2 L Mean Corpuscular Volume 90.7 Mean Corpuscular Hemoglobin 31.7 Mean Corpuscular Hemoglobin Concent 34.9 Red Cell Distribution Width 15.2 H Platelet Count 390 Mean Platelet Volume 10.0 Immature Granulocytes % 10.100 H Neutrophils % 71.5 Segmented Neutrophils % (Manual) 74 Band Neutrophils % (Manual) 1 Lymphocytes % 9.4 L Lymphocytes % (Manual) 7 L Reactive Lymphocytes % (Manual) 2 H Monocytes % 8.3 Monocytes % (Manual) 9 Eosinophils % 0.1 Eosinophils % (Manual) 1 Basophils % 0.6 Metamyelocytes % (manual) 5 H Myelocytes % (Manual) 1 H Nucleated Red Blood Cells % 0.0 Immature Granulocytes # 1.540 H Neutrophils # 10.9 H Neutrophils # (Manual) 11.3 H Band Neutrophils # 0.1 Lymphocytes (Manual) 1.0 Lymphocytes # 1.4 Reactive Lymphocytes # 0.3 H Monocytes # 1.3 H Monocytes # (Manual) 1.3 H Eosinophils # 0.0 Basophils # 0.1 Metamyelocytes # 0.7 H Myelocytes # 0.1 H Nucleated Red Blood Cells # 0.0 Toxic Granulation 1+ Platelet Estimate NORMAL Anisocytosis 1+ Sodium Level 138 Potassium Level 3.7 Chloride Level 100 Carbon Dioxide Level 24 Anion Gap 14 H Blood Urea Nitrogen 81 H Creatinine 4.29 H Est Glomerular Filtrat Rate mL/min Glucose Level 113 Calcium Level 8.6 Magnesium Level 3.1 H Total Bilirubin 0.5 Direct Bilirubin 0.00 Indirect Bilirubin 0.5 Aspartate Amino Transf (AST/SGOT) 52 H Alanine Aminotransferase (ALT/SGPT) 60 Alkaline Phosphatase 130 H Total Protein 6.5 Albumin 2.8 L Globulin 3.70 H Albumin/Globulin Ratio 0.75 Medications Medication Current Medications Ondansetron HCl (Zofran Inj) 4 mg ER BRIDGE PRN IV NAUSEA/VOMITING; Start 02/27/19 at 13:00; Stop 02/28/19 at 12:59 Acetaminophen (Tylenol Tab) 650 mg ER BRIDGE PRN PO .MILD PAIN 1-3 OR TEMP; Start 02/27/19 at 13:00; Stop 02/28/19 at 12:59 Divalproex Sodium (Depakote Er) 500 mg BID PO Last administered on 02/28/19at 08:40; Admin Dose 500 MG; Start 02/27/19 at 21:00 Doxazosin Mesylate (Cardura) 4 mg HS PO ; Start 02/27/19 at 21:00 Dutasteride (Avodart) 0.5 mg DAILY PO Last administered on 02/28/19at 08:40; Admin Dose 0.5 MG; Start 02/28/19 at 09:00 Quetiapine Fumarate (Seroquel) 25 mg BID PO Last administered on 02/28/19 08:40; Admin Dose 25 MG; Start 02/27/19 at 21:00 Atorvastatin Calcium (Lipitor) 10 mg DAILY@21 PO ; Start 02/27/19 at 21:00 IV Flush (NS 3 ml) 3 ml PER PROTOCOL IV ; Start 02/27/19 at 14:00 Ondansetron HCl (Zofran Inj) 4 mg Q6H PRN IV NAUSEA/VOMITING; Start 02/27/19 at 14:00 Aspirin (Aspirin) 81 mg DAILY PO Last administered on 02/28/19 08:40; Admin Dose 81 MG; Start 02/28/19 at 09:00 Acetaminophen (Tylenol Tab) 650 mg Q6H PRN PO .PAIN 1-3 OR TEMP; Start 02/27/19 at 14:00 Docusate Sodium (Colace) 100 mg Q12H PRN PO .CONSTIPATION Last administered on 02/28/19 08:39; Admin Dose 100 MG; Start 02/27/19 at 14:00 Magnesium Hydroxide (Milk Of Mag) 30 ml DAILY PRN PO .CONSTIPATION Last administered on 02/28/19 08:39; Admin Dose 30 ML; Start 02/27/19 at 14:00 Famotidine (Pepcid Iv) 20 mg DAILY IV Last administered on 02/28/19 08:41; Admin Dose 20 MG; Start 02/28/19 at 09:00 Lactated Ringer's 1,000 ml @ 100 mls/hr Q10H IV Last administered on 02/28/19 02:06; Admin Dose 100 MLS/HR; Start 02/27/19 at 14:00 Tramadol HCl (Ultram) 50 mg Q6H PRN PO MODERATE PAIN LEVEL 4-6; Start 02/27/19 at 15:00 Ceftriaxone Sodium 50 ml @ 100 mls/hr Q24H IVPB Last administered on 02/27/19 16:56; Admin Dose 100 MLS/HR; Start 02/27/19 at 15:30 Abacavir/ Lamivudine (Epzicom) 1 tab DAILY PO Last administered on 02/28/19 08:40; Admin Dose 1 TAB; Start 02/27/19 at 16:00 Miscellaneous Medication (Isentress) 400 mg BID PO Last administered on 02/28/19at 08:40; Admin Dose 400 MG; Start 02/27/19 at 16:00 Phenol (Cepastat Lozenge) 1 lozenge Q1H PRN MT sore throat; Start 02/27/19 at 1 5:30 FLOWER VILLANUEVA MD Feb 28, 2019 12:33
--- NOTE | 2019-02-28 13:16 | RADRPT ---
Echocardiogram Report Patient Name: Luis WASHINGTON ID: [id number] : 1945 (73y 2m)Study Date: 02/28/2019 7:46:55 AM Gender: MAccession #: [id number] Tech: Patricia Erickson [facility] Location: [id number] Ref.Physician: RAIN CARSON Height(Cm): BSA: Weight(Kg): Quality: Technically Difficult StudyOrder Physician: RAIN CARSON Account #: Procedures: Echocardiographic Report: Transthoracic echocardiogram with complete 2D, M-Mode, and doppler examination. Indications: Stroke. Measurements: 2D/M Mode Doppler Measurement Value Normal Range Measurement Value Normal Range LVIDd 2D 3.9 [ 4.2 - 5.8 ] cm AV Peak Byron 1.5 [ 100.0 - 170.0 ] cm/sec LVIDs 2D 1.5 [ 2.5 - 4.0 ] cm AV Peak PG 9.0 [ 2.0 - 9.0 ] mmHg LVPWd 2D 1.2 [ 0.6 - 1.0 ] cm LVOT Peak Byron 1.5 [ 70.0 - 110.0 ] cm/sec IVSd 2D 1.4 [ 0.6 - 1.0 ] cm LVOT Peak PG 9.0 [ 2.0 - 6.0 ] mmHg AoR Diam 2D 3.0 [ 2.6 - 3.4 ] cm TR Peak Byron 3.2 [ 100.0 - 280.0 ] cm/sec EDV 2D 65.1 [ 62.0 - 150.0 ] ml TR Peak PG 41.0 mmHg ESV 2D 5.8 [ 21.0 - 61.0 ] ml RVSP 44.0 [ 10.0 - 36.0 ] mmHg EF 2D 91.0 [ 52.0 - 72.0 ] percent RA Pressure 3.0 mmHg LA Dimen 2D 3.1 [ 3.0 - 4.0 ] cm Findings: Left Ventricle: Normal left ventricular systolic function. Normal left ventricular cavity size. Moderate concentric left ventricular hypertrophy. Ejection fraction is visually estimated at 65 %. Abnormal Diastolic Function. Right Ventricle: Normal right ventricular size. Normal right ventricular systolic function. Left Atrium: The left atrium is normal in size. Right Atrium: The right atrium is normal in size. Atrial Septum: Bubble study was performed with and with out valsalva indicating no evidence of intra atrial shunt. Mitral Valve: Normal appearance and function of the mitral valve with trace physiologic regurgitation. Aortic Valve: Normal appearance of the aortic valve. No significant aortic stenosis or insufficiency. Tricuspid Valve: Normal appearance of the tricuspid valve. The estimated Peak RVSP is 44 mmHg. There is mild tricuspid regurgitation. Pulmonic Valve: Normal pulmonic valve appearance. Pericardium: Normal pericardium with no significant pericardial effusion. Aorta: Normal aortic root. IVC: Normal size and normal respiratory collapse consistent with normal right atrial pressure. Conclusions: Normal left ventricular systolic function. Normal left ventricular cavity size. Moderate concentric left ventricular hypertrophy. Ejection fraction is visually estimated at 65 %. Abnormal Diastolic Function. Normal right ventricular size. Normal right ventricular systolic function. Normal appearance and function of the mitral valve with trace physiologic regurgitation. No significant aortic stenosis or insufficiency. Moderate pulmonary Hypertension. The estimated Peak RVSP is 44 mmHg. There is mild tricuspid regurgitation. Normal pericardium with no significant pericardial effusion. Electronically Signed By: Saravanan Bustos 2019-02-28 13:15:34 PDT
--- NOTE | 2019-02-28 13:22 | CONS ---
Assessment/Plan Assessment/Plan Hospital Course (Demo Recall) Patient is alert denies pain no fevers overnight vital signs stable WBC 15.3 platelets 390 neutrophils 74 BUN 81 creatinine 4.29 Urinalysis was positive for leukocyte Estrace WBC and few bacteria Microbiology: Urine culture growing gram-negative rods Antimicrobials: Patient is on Rocephin Physical examination: Well-nourished well-developed elderly man who is awake in no distress. Head atraumatic normocephalic neck is supple chest rise symmetrical breath sounds clear heart S1-S2 abdomen soft bowel sounds present extremities without cyanosis Assessment: 1. Systemic inflammatory response syndrome with leukocytosis 2. Urinary tract infection 3. HIV disease, on therapy 4. Acute renal failure questionable on chronic kidney disease 5. History of BPH 6. Mental status change on admission, currently at baseline Plan: We will change antibiotics to Invanz, send serology for CD4 count, await for final urine cultures, follow urology recommendations Consultation Date/Type/Reason Admit Date/Time Feb 27, 2019 at 12:49 Initial Consult Date Type of Consult id Date/Time of Note DATE: 02/28/19 TIME: 13:22 Exam/Review of Systems Exam Vitals Vital Signs Date Temp Pulse Resp B/P (MAP) Pulse Ox O2 O2 Flow FiO2 Time Delivery Rate 02/28/19 115 12:00 02/28/19 98.0 19 116/71 96 11:33 (86) 02/27/19 Nasal 2.0 18:12 Cannula Results Result Diagram: 02/28/19 0544 02/28/19 0544 Results 24hrs Laboratory Tests Test 02/27/19 13:57 02/28/19 05:44 Urine Color YELLOW Urine Clarity CLOUDY A Urine pH 5.0 Urine Specific [place] 1.006 Urine Ketones NEGATIVE Urine Nitrite NEGATIVE Urine Bilirubin NEGATIVE Urine Urobilinogen NEGATIVE Urine Leukocyte Esterase 3+ H Urine Microscopic RBC 14 H Urine Microscopic WBC > 182 H Urine Bacteria FEW A Urine Hemoglobin 2+ H Urine Glucose NEGATIVE Urine Total Protein NEGATIVE Urine Opiates Screen Negative Urine Barbiturates Negative Urine Amphetamines Screen Negative Urine Benzodiazepines Screen Negative Urine Cocaine Screen Negative Urine Cannabinoids Negative White Blood Count 15.3 H Red Blood Count 3.88 L Hemoglobin 12.3 L Hematocrit 35.2 L Mean Corpuscular Volume 90.7 Mean Corpuscular Hemoglobin 31.7 Mean Corpuscular Hemoglobin Concent 34.9 Red Cell Distribution Width 15.2 H Platelet Count 390 Mean Platelet Volume 10.0 Immature Granulocytes % 10.100 H Neutrophils % 71.5 Segmented Neutrophils % (Manual) 74 Band Neutrophils % (Manual) 1 Lymphocytes % 9.4 L Lymphocytes % (Manual) 7 L Reactive Lymphocytes % (Manual) 2 H Monocytes % 8.3 Monocytes % (Manual) 9 Eosinophils % 0.1 Eosinophils % (Manual) 1 Basophils % 0.6 Metamyelocytes % (manual) 5 H Myelocytes % (Manual) 1 H Nucleated Red Blood Cells % 0.0 Immature Granulocytes # 1.540 H Neutrophils # 10.9 H Neutrophils # (Manual) 11.3 H Band Neutrophils # 0.1 Lymphocytes (Manual) 1.0 Lymphocytes # 1.4 Reactive Lymphocytes # 0.3 H Monocytes # 1.3 H Monocytes # (Manual) 1.3 H Eosinophils # 0.0 Basophils # 0.1 Metamyelocytes # 0.7 H Myelocytes # 0.1 H Nucleated Red Blood Cells # 0.0 Toxic Granulation 1+ Platelet Estimate NORMAL Anisocytosis 1+ Sodium Level 138 Potassium Level 3.7 Chloride Level 100 Carbon Dioxide Level 24 Anion Gap 14 H Blood Urea Nitrogen 81 H Creatinine 4.29 H Est Glomerular Filtrat Rate mL/min Glucose Level 113 Calcium Level 8.6 Magnesium Level 3.1 H Total Bilirubin 0.5 Direct Bilirubin 0.00 Indirect Bilirubin 0.5 Aspartate Amino Transf (AST/SGOT) 52 H Alanine Aminotransferase (ALT/SGPT) 60 Alkaline Phosphatase 130 H Total Protein 6.5 Albumin 2.8 L Globulin 3.70 H Albumin/Globulin Ratio 0.75 Medications Medication Current Medications Divalproex Sodium (Depakote Er) 500 mg BID PO Last administered on 02/28/19at 08:40; Admin Dose 500 MG; Start 02/27/19 at 21:00 Doxazosin Mesylate (Cardura) 4 mg HS PO ; Start 02/27/19 at 21:00 Dutasteride (Avodart) 0.5 mg DAILY PO Last administered on 02/28/19at 08:40; Admin Dose 0.5 MG; Start 02/28/19 at 09:00 Quetiapine Fumarate (Seroquel) 25 mg BID PO Last administered on 02/28/19at 08:40; Admin Dose 25 MG; Start 02/27/19 at 21:00 Atorvastatin Calcium (Lipitor) 10 mg DAILY@21 PO ; Start 02/27/19 at 21:00 IV Flush (NS 3 ml) 3 ml PER PROTOCOL IV ; Start 02/27/19 at 14:00 Ondansetron HCl (Zofran Inj) 4 mg Q6H PRN IV NAUSEA/VOMITING; Start 02/27/19 at 14:00 Aspirin (Aspirin) 81 mg DAILY PO Last administered on 02/28/19 08:40; Admin Dose 81 MG; Start 02/28/19 at 09:00 Acetaminophen (Tylenol Tab) 650 mg Q6H PRN PO .PAIN 1-3 OR TEMP; Start 02/27/19 at 14:00 Docusate Sodium (Colace) 100 mg Q12H PRN PO .CONSTIPATION Last administered on 02/28/19 08:39; Admin Dose 100 MG; Start 02/27/19 at 14:00 Magnesium Hydroxide (Milk Of Mag) 30 ml DAILY PRN PO .CONSTIPATION Last administered on 02/28/19 08:39; Admin Dose 30 ML; Start 02/27/19 at 14:00 Famotidine (Pepcid Iv) 20 mg DAILY IV Last administered on 02/28/19 08:41; Admin Dose 20 MG; Start 02/28/19 at 09:00 Lactated Ringer's 1,000 ml @ 100 mls/hr Q10H IV Last administered on 02/28/19 02:06; Admin Dose 100 MLS/HR; Start 02/27/19 at 14:00 Tramadol HCl (Ultram) 50 mg Q6H PRN PO MODERATE PAIN LEVEL 4-6; Start 02/27/19 at 15:00 Ceftriaxone Sodium 50 ml @ 100 mls/hr Q24H IVPB Last administered on 02/27/19 16:56; Admin Dose 100 MLS/HR; Start 02/27/19 at 15:30 Abacavir/ Lamivudine (Epzicom) 1 tab DAILY PO Last administered on 02/28/19 08:40; Admin Dose 1 TAB; Start 02/27/19 at 16:00 Miscellaneous Medication (Isentress) 400 mg BID PO Last administered on 02/28/19 08:40; Admin Dose 400 MG; Start 02/27/19 at 16:00 Phenol (Cepastat Lozenge) 1 lozenge Q1H PRN MT sore throat; Start 02/27/19 at 15:30 TYESHA MCKEE NP Feb 28, 2019 13:22
[2019-02-28] MEDS ORDERED: ERTAPENEM SODIUM 1 GM in SOD CHLORIDE 0.9% 100 ML IVPB SCH (13:30)
[2019-02-28] MEDS ORDERED: ERTAPENEM SODIUM 0.5 GM in SOD CHLORIDE 0.9% 100 ML IVPB SCH (16:00)
[2019-02-28] MEDS: ATORVASTATIN 10 MG TAB PO SCH (21:08)
[2019-02-28] MEDS: DOXAZOSIN 4 MG TAB PO SCH (21:10)
[2019-03-01] VITALS (12 sets, daily range): BP systolic 108–125; BP diastolic 63–77; PULSE 92–111; RESP 2–20
[2019-03-01] MEDS: LACTATED RINGER'S 1,000 ML IV SCH ×2 (05:37→16:35)
[2019-03-01] MEDS: DUTASTERIDE 0.5 MG CAP PO SCH (09:14)
[2019-03-01] MEDS: QUETIAPINE 25 MG TAB PO SCH ×2 (09:14→20:57)
[2019-03-01] MEDS: ABACAVIR/LAMIVUDINE TAB PO SCH (09:14)
[2019-03-01] MEDS: FAMOTIDINE 20 MG INJ IV SCH (09:14)
[2019-03-01] MEDS: ASPIRIN 81 MG TAB PO SCH (09:14)
[2019-03-01] MEDS: RALTEGRAVIR 400 MG TAB PO SCH ×2 (09:14→20:57)
[2019-03-01] MEDS: DIVALPROEX (ER) 500 MG TAB PO SCH ×2 (09:14→20:57)
--- NOTE | 2019-03-01 09:27 | PN ---
DATE: 03/01/2019 SUBJECTIVE: The patient is stable, no events overnight. No fevers, chills, nausea or vomiting. OBJECTIVE: VITAL SIGNS: Blood pressure is 114/64, respiration 18, pulse 95, temperature 99.0. HEENT: Head is normocephalic. NECK: Supple. HEART: Regular rate. LUNGS: Show diminished breath sounds at base. ABDOMEN: Soft, nontender to palpation. No rebound or guarding. EXTREMITIES: Negative for clubbing, cyanosis, no edema. DERMATOLOGIC: No rashes. MUSCULOSKELETAL: No joint effusion. NEUROLOGIC: No change in exam. MEDICATIONS: Reviewed. LABORATORY DATA: Reviewed. IMAGING STUDIES: Reviewed. ASSESSMENT AND PLAN: 1. Nonoliguric acute kidney injury on top of chronic kidney disease with previous baseline creatinin es around 1.3 to 1.4 mg/dL. Etiology of acute kidney injury is likely multifactorial secondary to he modynamics, volume depletion, questionable component of obstructive uropathy. The patient's renal fu nction has been improving with IV hydration. Urinalysis was reviewed, does show evidence of pyuria, hematuria, no proteinuria. At this point, continue current treatment plan, supportive care, renally dose all meds, continue gentle IV hydration. Defer any WILLIE inhibitor or ARB at this time. 2. Anemia. Monitor hemoglobin and hematocrit levels. 3. Mineral bone disorder, monitor calcium and phosphorus levels. 4. Hypertension. Blood pressure is controlled. Continue to monitor. 5. Hyponatremia, improved. IV fluids, continue to monitor. 6. Urinary tract infection. Continue current antibiotic regimen. 7. Benign prostatic hypertrophy. Continue medical management. 8. Slurred speech, questionable TIA. The patient's MRI negative for acute stroke. Continue to [facility]. 9. History of human immunodeficiency virus. Continue HAART therapy. Dictated By: EFRAIN MEJIA/VIKRAM Conf#: [id number] DID#: [id number]
[2019-03-01] MEDS ORDERED: POTASSIUM CHLORIDE 20 MEQ POWDER FOR ORAL SOLN PO ONE (11:00)
--- NOTE | 2019-03-01 11:33 | PN ---
Date/Time of Note Date/Time of Note DATE: 03/01/19 TIME: 11:33 Objective Vitals Vital Signs Date Temp Pulse Resp B/P (MAP) Pulse Ox O2 O2 Flow FiO2 Time Delivery Rate 03/01/19 92 08:00 03/01/19 99.0 18 114/64 91 07:40 (81) 02/27/19 Nasal 2.0 18:12 Cannula Intake and Output 02/28/19 02/28/19 03/01/19 1515:00 23:00 07:00 IntakeIntake Total 50 ml 840 ml 50 ml OutputOutput Total 1000 ml 900 ml BalanceBalance 50 ml -160 ml -850 ml Results Result Diagram: 03/01/1962603/01/19626 Medications Medications Current Medications Divalproex Sodium (Depakote Er) 500 mg BID PO Last administered on 03/01/19at 09:14; Admin Dose 500 MG; Start 02/27/19 at 21:00 Doxazosin Mesylate (Cardura) 4 mg HS PO Last administered on 02/28/19at 21:10; Admin Dose 4 MG; Start 02/27/19 at 21:00 Dutasteride (Avodart) 0.5 mg DAILY PO Last administered on 03/01/19at 09:14; Admin Dose 0.5 MG; Start 02/28/19 at 09:00 Quetiapine Fumarate (Seroquel) 25 mg BID PO Last administered on 03/01/19at 09:14; Admin Dose 25 MG; Start 02/27/19 at 21:00 Atorvastatin Calcium (Lipitor) 10 mg DAILY@21 PO Last administered on 02/28/19at 21:08; Admin Dose 10 MG; Start 02/27/19 at 21:00 IV Flush (NS 3 ml) 3 ml PER PROTOCOL IV ; Start 02/27/19 at 14:00 Ondansetron HCl (Zofran Inj) 4 mg Q6H PRN IV NAUSEA/VOMITING; Start 02/27/19 at 14:00 Aspirin (Aspirin) 81 mg DAILY PO Last administered on 03/01/19at 09:14; Admin Dose 81 MG; Start 02/28/19 at 09:00 Acetaminophen (Tylenol Tab) 650 mg Q6H PRN PO .PAIN 1-3 OR TEMP; Start 02/27/19 at 14:00 Docusate Sodium (Colace) 100 mg Q12H PRN PO .CONSTIPATION Last administered on 02/28/19 08:39; Admin Dose 100 MG; Start 02/27/19 at 14:00 Magnesium Hydroxide (Milk Of Mag) 30 ml DAILY PRN PO .CONSTIPATION Last administered on 02/28/19 08:39; Admin Dose 30 ML; Start 02/27/19 at 14:00 Famotidine (Pepcid Iv) 20 mg DAILY IV Last administered on 03/01/19 09:14; Admin Dose 20 MG; Start 02/28/19 at 09:00 Lactated Ringer's 1,000 ml @ 100 mls/hr Q10H IV Last administered on 03/01/19 05:37; Admin Dose 100 MLS/HR; Start 02/27/19 at 14:00 Tramadol HCl (Ultram) 50 mg Q6H PRN PO MODERATE PAIN LEVEL 4-6; Start 02/27/19 at 15:00 Abacavir/ Lamivudine (Epzicom) 1 tab DAILY PO Last administered on 03/01/19 09:14; Admin Dose 1 TAB; Start 02/27/19 at 16:00 Miscellaneous Medication (Isentress) 400 mg BID PO Last administered on 03/01/19 09:14; Admin Dose 400 MG; Start 02/27/19 at 16:00 Phenol (Cepastat Lozenge) 1 lozenge Q1H PRN MT sore throat; Start 02/27/19 at 15:30 Ertapenem 0.5 gm/ Sodium Chloride 100 ml @ 200 mls/hr Q24H IVPB Last administered on 02/28/19 16:18; Admin Dose 200 MLS/HR; Start 02/28/19 at 16:00 VTE Prophylaxis Risk score (from Nsg)>0 risk: 4 SCD applied (from Nsg): No SCD contraindication: other Lines/Catheters IV Catheter Type: Zimmer in Place: No Assessment/Plan Hospital Course Subjective Patient feeling well when compared to admission, states he still feels his speech is slightly slurred however he feels it is improving and he cannot know for certain without his dentures Objective Physical exam General: Patient is laying in bed and answers questions appropriately Mentation: Patient is alert and oriented 4, Head: Normocephalic atraumatic Eyes: EOMI, pupils reactive to light Neck: Supple, nontender, midline Respiratory: Clear to auscultation bilaterally Cardiovascular: regular rate, no obvious murmurs Gastrointestinal: non-tender to palpation, bowel sounds heard. Neurological: Moves all extremities spontaneously Skin: No new skin lesions Assessment and plan Slurred speech, improving -MRI head negative for acute stroke -CT head negative for acute issues -Echo noted -Ultrasound carotid noted -speech therapy, PT, OT on board -Continue aspirin and statin -Neurology has been consulted -Questionable due to infection and having no dentures versus actual TIA Acute renal failure -Continues to improve -Renal ultrasound noted -CT of the abdomen pelvis showing possible pyelonephritis and cystitis -Nephrology on board -Urology has been consulted due to hydroureteronephrosis seen on CT -Continue IV fluids Electrolyte derangement -Replete as needed HIV -Continue on therapy -Infectious disease on board UTI with possible pyelonephritis -On ertapenem -Infectious disease consulted BPH -Continue home medications Sore throat -Continue as needed cough drops History of arrhythmia -Monitor closely Hypertension -Off medications for now, is stable, will reevaluate need of BP medications before discharge Disposition -Neurology consultation pending, continue to await improvement of creatinine before discharge, urology consultation also pending. WATSON VILLANUEVA Mar 01, 2019 11:33
--- NOTE | 2019-03-01 13:39 | CONS ---
Assessment/Plan Assessment/Plan Hospital Course (Demo Recall) This is a 73-year-old male who is known to be HIV positive and has been having difficulty with his gait and had been falling and had slurred speech lately. The patient underwent a CT scan of the abdomen and pelvis and that showed right hydroureteronephrosis with the right ureter dilated all the way to the bladder without evidence of any obstructing stone therefore a urological consultation was requested. The patient states that he did have a urinary tract infection about 3 weeks earlier he usually does have nocturia 3-4 times a night during the day he urinates every 2 hours he denies any urgency or urgency incontinence no history of dysuria and no history of gross hematuria. He describes his urinary stream is slow he does have postvoid dribbling and he feels he does not empty his bladder well. He has been seeing a urologist and has been on doxazosin and dutasteride. Urine culture did show Proteus mirabilis. Impression: Urinary tract infection and right hydroureteronephrosis most likely secondary to the infection. Plan: Continue the IV antibiotics, dutasteride and doxazosin. Consultation Date/Type/Reason Admit Date/Time Feb 27, 2019 at 12:49 Date of Consultation: Mar 01, 2019 Type of Consult Urology Reason for Consultation Right hydroureteronephrosis down to the bladder without obstructing stone Requesting Provider: WATSON VILLANUEVA Date/Time of Note DATE: 03/01/19 TIME: 13:26 Hx of Present Illness This is a 73-year-old male who is known to be HIV positive and has been having difficulty with his gait and had been falling and had slurred speech lately. The patient underwent a CT scan of the abdomen and pelvis and that showed right hydroureteronephrosis with the right ureter dilated all the way to the bladder without evidence of any obstructing stone therefore a urological consultation was requested. The patient states that he did have a urinary tract infection a bout 3 weeks earlier he usually does have nocturia 3-4 times a night during the day he urinates every 2 hours he denies any urgency or urgency incontinence no history of dysuria and no history of gross hematuria. He describes his urinary stream is slow he does have postvoid dribbling and he feels he does not empty his bladder well. He has been seeing a urologist and has been on doxazosin and dutasteride. Constitutional: no complaints Eyes: no complaints ENT: no complaints Respiratory: no complaints; No shortness of breath Cardiovascular: No chest pain Gastrointestinal: No nausea, No vomiting Genitourinary: other (As per history of present illness) Musculoskeletal: no complaints Skin: no complaints Neurologic: other (He had a CT scan of the head as well as MRI of the brain and there was no evidence of acute injury to the brain) Immunologic: no complaints Past Medical History Medical History: hypertension, other (BPH, HIV, arrhythmia, prediabetes) Home Meds Reported Medications Amiodarone Hcl* (Amiodarone Hcl*) 200 Mg Tablet, 200 MG PO DAILY, #30 TAB 02/27/19 Raltegravir Potassium* (Isentress*) 400 Mg Tablet, 400 MG PO BID, TAB 02/27/19 Abacavir Sulfate/Lamivudine (Abacavir-Lamivudine 600-300 mg) 1 Each Tablet, 1 TAB PO DAILY 02/27/19 Dutasteride* (Avodart*) 0.5 Mg Capsule, 0.5 MG PO DAILY, CAP 02/27/19 Quetiapine Fumarate* (Quetiapine Fumarate*) 25 Mg Tablet, 25 MG PO BID, TAB 02/27/19 Pravastatin Sodium* (Pravastatin Sodium*) 10 Mg Tablet, 10 MG PO HS, TAB 02/27/19 Doxazosin Mesylate* (Doxazosin Mesylate*) 4 Mg Tablet, 4 MG PO HS, TAB 02/27/19 Metoprolol Tartrate* (Lopressor*) 50 Mg Tab, 50 MG PO BID, #60 TAB 02/27/19 Divalproex Sodium* (Depakote ER*) 500 Mg Tabsr, 500 MG PO BID, #30 TAB.SA 02/27/19 Discontinued Reported Medications [metoprolol] No Conflict Check 04/22/13 [amiodarone] No Conflict Check 04/22/13 Medications Current Medications Divalproex Sodium (Depakote Er) 500 mg BID PO Last administered on 03/01/19at 09:14; Admin Dose 500 MG; Start 02/27/19 at 21:00 Doxazosin Mesylate (Cardura) 4 mg HS PO Last administered on 02/28/19at 21:10; Admin Dose 4 MG; Start 02/27/19 at 21:00 Dutasteride (Avodart) 0.5 mg DAILY PO Last administered on 03/01/19 09:14; Admin Dose 0.5 MG; Start 02/28/19 at 09:00 Atorvastatin Calcium (Lipitor) 10 mg DAILY@21 PO Last administered on 02/28/19 21:08; Admin Dose 10 MG; Start 02/27/19 at 21:00 IV Flush (NS 3 ml) 3 ml PER PROTOCOL IV ; Start 02/27/19 at 14:00 Ondansetron HCl (Zofran Inj) 4 mg Q6H PRN IV NAUSEA/VOMITING; Start 02/27/19 at 14:00 Aspirin (Aspirin) 81 mg DAILY PO Last administered on 03/01/19 09:14; Admin Dose 81 MG; Start 02/28/19 at 09:00 Acetaminophen (Tylenol Tab) 650 mg Q6H PRN PO .PAIN 1-3 OR TEMP; Start 02/27/19 at 14:00 Docusate Sodium (Colace) 100 mg Q12H PRN PO .CONSTIPATION Last administered on 02/28/19 08:39; Admin Dose 100 MG; Start 02/27/19 at 14:00 Magnesium Hydroxide (Milk Of Mag) 30 ml DAILY PRN PO .CONSTIPATION Last a dministered on 02/28/19 08:39; Admin Dose 30 ML; Start 02/27/19 at 14:00 Famotidine (Pepcid Iv) 20 mg DAILY IV Last administered on 03/01/19 09:14; Admin Dose 20 MG; Start 02/28/19 at 09:00 Lactated Ringer's 1,000 ml @ 100 mls/hr Q10H IV Last administered on 03/01/19 05:37; Admin Dose 100 MLS/HR; Start 02/27/19 at 14:00 Tramadol HCl (Ultram) 50 mg Q6H PRN PO MODERATE PAIN LEVEL 4-6; Start 02/27/19 at 15:00 Abacavir/ Lamivudine (Epzicom) 1 tab DAILY PO Last administered on 03/01/19 09:14; Admin Dose 1 TAB; Start 02/27/19 at 16:00 Miscellaneous Medication (Isentress) 400 mg BID PO Last administered on 03/01/19 09:14; Admin Dose 400 MG; Start 02/27/19 at 16:00 Phenol (Cepastat Lozenge) 1 lozenge Q1H PRN MT sore throat; Start 02/27/19 at 15:30 Ertapenem 0.5 gm/ Sodium Chloride 100 ml @ 200 mls/hr Q24H IVPB Last administered on 02/28/19at 16:18; Admin Dose 200 MLS/HR; Start 02/28/19 at 16:00 Quetiapine Fumarate (Seroquel) 50 mg QHS PO ; Start 03/01/19 at 21:00 Allergies: Coded Allergies: No Known Allergy (Unverified , 02/27/19) Past Surgical History Past Surgical Hx: other (hernia repair december at [facility], bilateral cataract surgery) Social History Alcohol Use: none Smoking Status: Former smoker Drug Use: none, other (He did do all kind of drugs when he was younger and last time he did was about 2 years ago) Exam/Review of Systems Exam Vitals Vital Signs Date Temp Pulse Resp B/P (MAP) Pulse Ox O2 O2 Flow FiO2 Time Delivery Rate 03/01/19 98.9 97 20 121/76 95 12:01 (91) 02/27/19 Nasal 2.0 18:12 Cannula Intake and Output 02/28/19 02/28/19 03/01/19 1515:00 23:00 07:00 IntakeIntake Total 50 ml 840 ml 50 ml OutputOutput Total 1000 ml 900 ml BalanceBalance 50 ml -160 ml -850 ml Constitutional: alert Psych: no complaints Head: normocephalic Eyes: nl conjunctiva ENMT: nl external ears & nose Neck: supple Respiratory: normal air movement; No wheezing Cardiovascular: other (Cardiac arrhythmias) Gastrointestinal: soft Genitourinary - Male: nl penis, nl scrotum, other (Rectal exam prostate is soft and not large) Neurological: nl mental status Skin: nl turgor Results Result Diagram: 03/01/1962603/01/19626 Results 24hrs Laboratory Tests Test 02/28/19 14:04 03/01/19 06:27 Urine Eosinophils % 0.0 Urine Random Creatinine 40.15 Urine Random Sodium 49 White Blood Count 13.3 H Red Blood Count 3.28 L Hemoglobin 10.5 L Hematocrit 30.3 L Mean Corpuscular Volume 92.4 Mean Corpuscular Hemoglobin 32.0 Mean Corpuscular Hemoglobin Concent 34.7 Red Cell Distribution Width 15.2 H Platelet Count 381 Mean Platelet Volume 9.4 Immature Granulocytes % 8.300 H Neutrophils % 74.9 Segmented Neutrophils % (Manual) 74 Lymphocytes % 8.4 L Lymphocytes % (Manual) 16 Reactive Lymphocytes % (Manual) 1 H Monocytes % 7.1 Monocytes % (Manual) 8 Eosinophils % 0.4 Basophils % 0.9 Myelocytes % (Manual) 1 H Nucleated Red Blood Cells % 1 H Immature Granulocytes # 1.100 H Neutrophils # 10.0 H Lymphocytes (Manual) 2.1 Lymphocytes # 1.1 Reactive Lymphocytes # 0.1 H Monocytes # 0.9 Monocytes # (Manual) 1.0 H Eosinophils # 0.1 Basophils # 0.1 Myelocytes # 0.1 H Nucleated Red Blood Cells # 0.0 Platelet Estimate NORMAL Poikilocytosis 1+ Anisocytosis 1+ Macrocytosis 1+ Sodium Level 135 Potassium Level 3.3 L Chloride Level 101 Carbon Dioxide Level 26 Anion Gap 8 Blood Urea Nitrogen 63 H Creatinine 3.35 H Est Glomerular Filtrat Rate mL/min Glucose Level 104 Calcium Level 8.4 Magnesium Level 2.6 H Total Bilirubin 0.5 Direct Bilirubin 0.00 Indirect Bilirubin 0.5 Aspartate Amino Transf (AST/SGOT) 48 H Alanine Aminotransferase (ALT/SGPT) 43 Alkaline Phosphatase 107 Total Protein 6.1 Albumin 2.6 L Globulin 3.50 H Albumin/Globulin Ratio 0.74 Urine culture showing Proteus mirabilis Imaging Imaging CT scan of the abdomen and pelvis: 1. There is mild right hydroureteronephrosis to the level of the urinary bladder, along with mild perinephric/periureteral edema. No urinary calculus is seen. Possible considerations include a recently passed right ureteral calculus and/or right pyelonephritis. 2. Circumferential urinary bladder wall thickening and adjacent edema are noted, suggestive of cystitis. 3. Aortoiliac atherosclerotic calcifications. 4. Colonic diverticulosis, without diverticulitis. 5. No evidence of bowel obstruction, mass or lymphadenopathy. Medications Medication Current Medications Divalproex Sodium (Depakote Er) 500 mg BID PO Last administered on 03/01/19at 09:14; Admin Dose 500 MG; Start 02/27/19 at 21:00 Doxazosin Mesylate (Cardura) 4 mg HS PO Last administered on 02/28/19at 21:10; Admin Dose 4 MG; Start 02/27/19 at 21:00 Dutasteride (Avodart) 0.5 mg DAILY PO Last administered on 03/01/19 09:14; Admin Dose 0.5 MG; Start 02/28/19 at 09:00 Atorvastatin Calcium (Lipitor) 10 mg DAILY@21 PO Last administered on 02/28/19 21:08; Admin Dose 10 MG; Start 02/27/19 at 21:00 IV Flush (NS 3 ml) 3 ml PER PROTOCOL IV ; Start 02/27/19 at 14:00 Ondansetron HCl (Zofran Inj) 4 mg Q6H PRN IV NAUSEA/VOMITING; Start 02/27/19 at 14:00 Aspirin (Aspirin) 81 mg DAILY PO Last administered on 03/01/19 09:14; Admin Dose 81 MG; Start 02/28/19 at 09:00 Acetaminophen (Tylenol Tab) 650 mg Q6H PRN PO .PAIN 1-3 OR TEMP; Start 02/27/19 at 14:00 Docusate Sodium (Colace) 100 mg Q12H PRN PO .CONSTIPATION Last administered on 02/28/19 08:39; Admin Dose 100 MG; Start 02/27/19 at 14:00 Magnesium Hydroxide (Milk Of Mag) 30 ml DAILY PRN PO .CONSTIPATION Last administered on 02/28/19 08:39; Admin Dose 30 ML; Start 02/27/19 at 14:00 Famotidine (Pepcid Iv) 20 mg DAILY IV Last administered on 03/01/19 09:14; Admin Dose 20 MG; Start 02/28/19 at 09:00 Lactated Ringer's 1,000 ml @ 100 mls/hr Q10H IV Last administered on 03/01/19 05:37; Admin Dose 100 MLS/HR; Start 02/27/19 at 14:00 Tramadol HCl (Ultram) 50 mg Q6H PRN PO MODERATE PAIN LEVEL 4-6; Start 02/27/19 at 15:00 Abacavir/ Lamivudine (Epzicom) 1 tab DAILY PO Last administered on 03/01/19 09:14; Admin Dose 1 TAB; Start 02/27/19 at 16:00 Miscellaneous Medication (Isentress) 400 mg BID PO Last administered on 6/17/19at 09:14; Admin Dose 400 MG; Start 02/27/19 at 16:00 Phenol (Cepastat Lozenge) 1 lozenge Q1H PRN MT sore throat; Start 02/27/19 at 15:30 Ertapenem 0.5 gm/ Sodium Chloride 100 ml @ 200 mls/hr Q24H IVPB Last administered on 02/28/19at 16:18; Admin Dose 200 MLS/HR; Start 02/28/19 at 16:00 Quetiapine Fumarate (Seroquel) 50 mg QHS PO ; Start 03/01/19 at 21:00 MARQUITA WALTERS MD Mar 01, 2019 13:38
--- NOTE | 2019-03-01 15:12 | CONSI ---
Assessment/Plan Assessment/Plan Assessment/Plan (Recall) 73 M c/ HIV and other comorbidities, who presents for evaluation of gait imbalance and dysarthria following a fall. Noted to have a genitourinary infection, w/ acute renal failure and hyponatremia...the likely underlying precipitants.. Encephalitis is less likely.. MRI brain is reassuringly negative for acute intracranial pathology.. P: Await CD4 count OK to defer LP for CSF evaluation for now Skilled therapies as necessary Continued medical management and supportive care per primary Will follow Consultation Date/Type/Reason Admit Date/Time Feb 27, 2019 at 12:49 Type of Consult Neurology Reason for Consultation dysarthria Requesting Provider: WATSON VILLANUEVA Date/Time of Note DATE: 03/01/19 TIME: 15:03 Hx of Present Illness Patient is not forthcoming.. He does endorse mild slurred speech...but cannot say for how long.. He is without additional neurologic complaints at this time. It is elsewhere noted: 73 yo M with PMH HIV, hypertension, BPH, arrhythmia and multiple falls presented to ED after being found down after 4 days and noted with gait instability and slurred speech. Patient states he has fallen 3 times but cannot specify within what time frame. States he has been down for about 3 or 4 days and called his sister in law this am for Tylenol due to pain. Family at bedside and assisting with history. She states when she got to his home, she was calling out for him for awhile. When he opened the door she noticed unsteady gait and slurred speech. She convinced him to go to the ED for evaluation. Patient does not recall events leading up to fall but does admit he has been having difficulty speaking as well as texting for the past 3 days. He has not taken his medications or consumed any PO intake at this time as well. Patient admits to pain in mid back but denies any headaches, chest pain, shortness of breath, nausea, vomiting, abdominal pain, or urinary issues. Does admit to diminished appetite. Patient is confusing the name of his sister in law and having difficulty constructing full sentences. Objective Exam Vitals Vital Signs Date Temp Pulse Resp B/P (MAP) Pulse Ox O2 O2 Flow FiO2 Time Delivery Rate 03/01/19 98.9 97 20 121/76 95 12:01 (91) 02/27/19 Nasal 2.0 18:12 Cannula Intake and Output 02/28/19 02/28/19 03/01/19 1515:00 23:00 07:00 IntakeIntake Total 50 ml 840 ml 50 ml OutputOutput Total 1000 ml 900 ml BalanceBalance 50 ml -160 ml -850 ml Exam PE: Gen Appearance: No Apparent Distress HEENT: Normocephalic Cardiovascular: Regular rate Lungs: Clear bilaterally Abdomen: Soft Extremities: Dry NE: The patient was alert and oriented. Language was normal. Fund of knowledge was adequate. Pupils were equal and reactive to light. There was no afferent pupillary defect. Visual garcia were normal. Funduscopic examination was limited. Extra-ocular movements were full. Ptosis was absent. There was no nystagmus. Facial sensation was normal. Face was symmetric with normal strength. Hearing was intact. Palate movements were normal. Neck strength was normal. There was normal tongue bulk and speed of movement. Speech was mildly dysarthric. Tone was normal. Muscle bulk was normal. I did not see fasciculations, though b/l intention tremors were noted.. Arms and legs were symmetric. Vibration sensation was diminished distally. Temperature and pinprick sensation was normal. Rapid alternating movements were normal. There was no dysmetria. There was no intention tremor. Gait was deferred due to bedrest. Arm and leg reflexes were symmetric. Katz's sign was absent. Plantar responses were flexor. Results Result Diagram: 03/01/19 0627 03/01/19 0627 Results 24hrs Laboratory Tests Test 03/01/19 06:27 White Blood Count 13.3 H Red Blood Count 3.28 L Hemoglobin 10.5 L Hematocrit 30.3 L Mean Corpuscular Volume 92.4 Mean Corpuscular Hemoglobin 32.0 Mean Corpuscular Hemoglobin Concent 34.7 Red Cell Distribution Width 15.2 H Platelet Count 381 Mean Platelet Volume 9.4 Immature Granulocytes % 8.300 H Neutrophils % 74.9 Segmented Neutrophils % (Manual) 74 Lymphocytes % 8.4 L Lymphocytes % (Manual) 16 Reactive Lymphocytes % (Manual) 1 H Monocytes % 7.1 Monocytes % (Manual) 8 Eosinophils % 0.4 Basophils % 0.9 Myelocytes % (Manual) 1 H Nucleated Red Blood Cells % 1 H Immature Granulocytes # 1.100 H Neutrophils # 10.0 H Lymphocytes (Manual) 2.1 Lymphocytes # 1.1 Reactive Lymphocytes # 0.1 H Monocytes # 0.9 Monocytes # (Manual) 1.0 H Eosinophils # 0.1 Basophils # 0.1 Myelocytes # 0.1 H Nucleated Red Blood Cells # 0.0 Platelet Estimate NORMAL Poikilocytosis 1+ Anisocytosis 1+ Macrocytosis 1+ Sodium Level 135 Potassium Level 3.3 L Chloride Level 101 Carbon Dioxide Level 26 Anion Gap 8 Blood Urea Nitrogen 63 H Creatinine 3.35 H Est Glomerular Filtrat Rate mL/min Glucose Level 104 Calcium Level 8.4 Magnesium Level 2.6 H Total Bilirubin 0.5 Direct Bilirubin 0.00 Indirect Bilirubin 0.5 Aspartate Amino Transf (AST/SGOT) 48 H Alanine Aminotransferase (ALT/SGPT) 43 Alkaline Phosphatase 107 Total Protein 6.1 Albumin 2.6 L Globulin 3.50 H Albumin/Globulin Ratio 0.74 Past Medical History Medical History: hypertension, other (BPH, HIV, arrhythmia, prediabetes) Home Meds Reported Medications Amiodarone Hcl* (Amiodarone Hcl*) 200 Mg Tablet, 200 MG PO DAILY, #30 TAB 02/27/19 Raltegravir Potassium* (Isentress*) 400 Mg Tablet, 400 MG PO BID, TAB 02/27/19 Abacavir Sulfate/Lamivudine (Abacavir-Lamivudine 600-300 mg) 1 Each Tablet, 1 TAB PO DAILY 02/27/19 Dutasteride* (Avodart*) 0.5 Mg Capsule, 0.5 MG PO DAILY, CAP 02/27/19 Quetiapine Fumarate* (Quetiapine Fumarate*) 25 Mg Tablet, 25 MG PO BID, TAB 02/27/19 Pravastatin Sodium* (Pravastatin Sodium*) 10 Mg Tablet, 10 MG PO HS, TAB 02/27/19 Doxazosin Mesylate* (Doxazosin Mesylate*) 4 Mg Tablet, 4 MG PO HS, TAB 02/27/19 Metoprolol Tartrate* (Lopressor*) 50 Mg Tab, 50 MG PO BID, #60 TAB 02/27/19 Divalproex Sodium* (Depakote ER*) 500 Mg Tabsr, 500 MG PO BID, #30 TAB.SA 02/27/19 Discontinued Reported Medications [metoprolol] No Conflict Check 04/22/13 [amiodarone] No Conflict Check 8/8/13 Medications Current Medications Divalproex Sodium (Depakote Er) 500 mg BID PO Last administered on 03/01/19 09:14; Admin Dose 500 MG; Start 02/27/19 at 21:00 Doxazosin Mesylate (Cardura) 4 mg HS PO Last administered on 02/28/19 21:10; Admin Dose 4 MG; Start 02/27/19 at 21:00 Dutasteride (Avodart) 0.5 mg DAILY PO Last administered on 03/01/19 09:14; Admin Dose 0.5 MG; Start 02/28/19 at 09:00 Atorvastatin Calcium (Lipitor) 10 mg DAILY@21 PO Last administered on 02/28/19 21:08; Admin Dose 10 MG; Start 02/27/19 at 21:00 IV Flush (NS 3 ml) 3 ml PER PROTOCOL IV ; Start 02/27/19 at 14:00 Ondansetron HCl (Zofran Inj) 4 mg Q6H PRN IV NAUSEA/VOMITING; Start 02/27/19 at 14:00 Aspirin (Aspirin) 81 mg DAILY PO Last administered on 03/01/19 09:14; Admin Dose 81 MG; Start 02/28/19 at 09:00 Acetaminophen (Tylenol Tab) 650 mg Q6H PRN PO .PAIN 1-3 OR TEMP; Start 02/27/19 at 14:00 Docusate Sodium (Colace) 100 mg Q12H PRN PO .CONSTIPATION Last administered on 02/28/19 08:39; Admin Dose 100 MG; Start 02/27/19 at 14:00 Magnesium Hydroxide (Milk Of Mag) 30 ml DAILY PRN PO .CONSTIPATION Last a dministered on 02/28/19 08:39; Admin Dose 30 ML; Start 02/27/19 at 14:00 Famotidine (Pepcid Iv) 20 mg DAILY IV Last administered on 03/01/19 09:14; Admin Dose 20 MG; Start 02/28/19 at 09:00 Lactated Ringer's 1,000 ml @ 100 mls/hr Q10H IV Last administered on 03/01/19 05:37; Admin Dose 100 MLS/HR; Start 02/27/19 at 14:00 Tramadol HCl (Ultram) 50 mg Q6H PRN PO MODERATE PAIN LEVEL 4-6; Start 02/27/19 at 15:00 Abacavir/ Lamivudine (Epzicom) 1 tab DAILY PO Last administered on 03/01/19at 09:14; Admin Dose 1 TAB; Start 02/27/19 at 16:00 Miscellaneous Medication (Isentress) 400 mg BID PO Last administered on 03/01/19at 09:14; Admin Dose 400 MG; Start 02/27/19 at 16:00 Phenol (Cepastat Lozenge) 1 lozenge Q1H PRN MT sore throat; Start 02/27/19 at 15:30 Ertapenem 0.5 gm/ Sodium Chloride 100 ml @ 200 mls/hr Q24H IVPB Last administered on 02/28/19at 16:18; Admin Dose 200 MLS/HR; Start 02/28/19 at 16:00 Quetiapine Fumarate (Seroquel) 50 mg QHS PO ; Start 03/01/19 at 21:00 Allergies: Coded Allergies: No Known Allergy (Unverified , 02/27/19) Past Surgical History Past Surgical Hx: other (hernia repair december at [facility], bilateral cataract surgery) Social History Alcohol Use: none Smoking Status: Former smoker Drug Use: none, other (He did do all kind of drugs when he was younger and last time he did was about 2 years ago) MALCOLM GOLD Mar 01, 2019 15:12
--- NOTE | 2019-03-01 16:07 | CONS ---
Assessment/Plan Assessment/Plan Hospital Course (Demo Recall) Patient is alert feels good denies pain no fevers overnight Urine culture grew Proteus mirabilis resistant only to Macrobid Antimicrobials: Aniya Reilly, Mario Alberto Microbiology: Urine culture growing gram-negative rods Physical examination: Well-nourished well-developed elderly man who is awake in no distress. Head atraumatic normocephalic neck is supple chest rise symmetrical breath sounds clear heart S1-S2 abdomen soft bowel sounds present extremities without cyanosis Assessment: 1. Systemic inflammatory response syndrome with leukocytosis 2. Urinary tract infection 3. HIV disease, on therapy 4. Acute renal failure questionable on chronic kidney disease 5. History of BPH 6. Mental status change on admission, currently at baseline Plan: Patient remains stable, we will change antibiotics back to Rocephin, follow urology and renal recommendations Consultation Date/Type/Reason Admit Date/Time Feb 27, 2019 at 12:49 Initial Consult Date Type of Consult id Requesting Provider: WATSON VILLANUEVA Date/Time of Note DATE: 03/01/19 TIME: 16:06 Exam/Review of Systems Exam Vitals Vital Signs Date Temp Pulse Resp B/P (MAP) Pulse Ox O2 O2 Flow FiO2 Time Delivery Rate 03/01/19 98.5 103 18 108/64 93 15:24 (79) 02/27/19 Nasal 2.0 18:12 Cannula Intake and Output 02/28/19 02/28/19 03/01/19 1515:00 23:00 07:00 IntakeIntake Total 50 ml 840 ml 50 ml OutputOutput Total 1000 ml 900 ml BalanceBalance 50 ml -160 ml -850 ml Results Result Diagram: 03/01/19 0627 03/01/19 0627 Results 24hrs Laboratory Tests Test 03/01/19 06:27 White Blood Count 13.3 H Red Blood Count 3.28 L Hemoglobin 10.5 L Hematocrit 30.3 L Mean Corpuscular Volume 92.4 Mean Corpuscular Hemoglobin 32.0 Mean Corpuscular Hemoglobin Concent 34.7 Red Cell Distribution Width 15.2 H Platelet Count 381 Mean Platelet Volume 9.4 Immature Granulocytes % 8.300 H Neutrophils % 74.9 Segmented Neutrophils % (Manual) 74 Lymphocytes % 8.4 L Lymphocytes % (Manual) 16 Reactive Lymphocytes % (Manual) 1 H Monocytes % 7.1 Monocytes % (Manual) 8 Eosinophils % 0.4 Basophils % 0.9 Myelocytes % (Manual) 1 H Nucleated Red Blood Cells % 1 H Immature Granulocytes # 1.100 H Neutrophils # 10.0 H Lymphocytes (Manual) 2.1 Lymphocytes # 1.1 Reactive Lymphocytes # 0.1 H Monocytes # 0.9 Monocytes # (Manual) 1.0 H Eosinophils # 0.1 Basophils # 0.1 Myelocytes # 0.1 H Nucleated Red Blood Cells # 0.0 Platelet Estimate NORMAL Poikilocytosis 1+ Anisocytosis 1+ Macrocytosis 1+ Sodium Level 135 Potassium Level 3.3 L Chloride Level 101 Carbon Dioxide Level 26 Anion Gap 8 Blood Urea Nitrogen 63 H Creatinine 3.35 H Est Glomerular Filtrat Rate mL/min Glucose Level 104 Calcium Level 8.4 Magnesium Level 2.6 H Total Bilirubin 0.5 Direct Bilirubin 0.00 Indirect Bilirubin 0.5 Aspartate Amino Transf (AST/SGOT) 48 H Alanine Aminotransferase (ALT/SGPT) 43 Alkaline Phosphatase 107 Total Protein 6.1 Albumin 2.6 L Globulin 3.50 H Albumin/Globulin Ratio 0.74 Medications Medication Current Medications Divalproex Sodium (Depakote Er) 500 mg BID PO Last administered on 03/01/19at 09:14; Admin Dose 500 MG; Start 02/27/19 at 21:00 Doxazosin Mesylate (Cardura) 4 mg HS PO Last administered on 02/28/19at 21:10; Admin Dose 4 MG; Start 02/27/19 at 21:00 Dutasteride (Avodart) 0.5 mg DAILY PO Last administered on 03/01/19at 09:14; Admin Dose 0.5 MG; Start 02/28/19 at 09:00 Atorvastatin Calcium (Lipitor) 10 mg DAILY@21 PO Last administered on 02/28/19at 21:08; Admin Dose 10 MG; Start 02/27/19 at 21:00 IV Flush (NS 3 ml) 3 ml PER PROTOCOL IV ; Start 02/27/19 at 14:00 Ondansetron HCl (Zofran Inj) 4 mg Q6H PRN IV NAUSEA/VOMITING; Start 02/27/19 at 14:00 Aspirin (Aspirin) 81 mg DAILY PO Last administered on 03/01/19at 09:14; Admin Dose 81 MG; Start 02/28/19 at 09:00 Acetaminophen (Tylenol Tab) 650 mg Q6H PRN PO .PAIN 1-3 OR TEMP; Start 02/27/19 at 14:00 Docusate Sodium (Colace) 100 mg Q12H PRN PO .CONSTIPATION Last administered on 02/28/19 08:39; Admin Dose 100 MG; Start 02/27/19 at 14:00 Magnesium Hydroxide (Milk Of Mag) 30 ml DAILY PRN PO .CONSTIPATION Last administered on 02/28/19at 08:39; Admin Dose 30 ML; Start 02/27/19 at 14:00 Famotidine (Pepcid Iv) 20 mg DAILY IV Last administered on 03/01/19 09:14; Admin Dose 20 MG; Start 02/28/19 at 09:00 Lactated Ringer's 1,000 ml @ 100 mls/hr Q10H IV Last administered on 03/01/19at 05:37; Admin Dose 100 MLS/HR; Start 02/27/19 at 14:00 Tramadol HCl (Ultram) 50 mg Q6H PRN PO MODERATE PAIN LEVEL 4-6; Start 02/27/19 at 15:00 Abacavir/ Lamivudine (Epzicom) 1 tab DAILY PO Last administered on 03/01/19at 09:14; Admin Dose 1 TAB; Start 02/27/19 at 16:00 Miscellaneous Medication (Isentress) 400 mg BID PO Last administered on 03/01/19at 09:14; Admin Dose 400 MG; Start 02/27/19 at 16:00 Phenol (Cepastat Lozenge) 1 lozenge Q1H PRN MT sore throat; Start 02/27/19 at 15:30 Ertapenem 0.5 gm/ Sodium Chloride 100 ml @ 200 mls/hr Q24H IVPB Last administered on 02/28/19 16:18; Admin Dose 200 MLS/HR; Start 02/28/19 at 16:00 Quetiapine Fumarate (Seroquel) 50 mg QHS PO ; Start 03/01/19 at 21:00 TYESHA MCKEE NP Mar 01, 2019 16:07
[2019-03-01] MEDS: CEFTRIAXONE 1 GM/50 ML (PMX) 50 ML IVPB SCH (16:34)
[2019-03-01] MEDS: DOXAZOSIN 4 MG TAB PO SCH (20:58)
[2019-03-01] MEDS: ATORVASTATIN 10 MG TAB PO SCH (20:58)
[2019-03-01] MEDS: CEPASTAT LOZENGE MT PRN (21:06)
[2019-03-02] VITALS (10 sets, daily range): BP systolic 116–134; BP diastolic 67–80; PULSE 90–109; RESP 18–19
[2019-03-02] MEDS: LACTATED RINGER'S 1,000 ML IV SCH (02:29)
[2019-03-02] MEDS: CEPASTAT LOZENGE MT PRN ×2 (04:24→14:39)
[2019-03-02] MEDS: FAMOTIDINE 20 MG TAB PO SCH (08:07)
[2019-03-02] MEDS: ASPIRIN 81 MG TAB PO SCH (08:07)
[2019-03-02] MEDS: DUTASTERIDE 0.5 MG CAP PO SCH (08:07)
[2019-03-02] MEDS: ABACAVIR/LAMIVUDINE TAB PO SCH (08:07)
[2019-03-02] MEDS: RALTEGRAVIR 400 MG TAB PO SCH ×2 (08:07→21:56)
[2019-03-02] MEDS: DIVALPROEX (ER) 500 MG TAB PO SCH ×2 (08:08→21:56)
--- NOTE | 2019-03-02 13:24 | CONS ---
Assessment/Plan Assessment/Plan Assessment/Plan (Recall) 73 M c/ HIV and other comorbidities, who presents for evaluation of gait imbalance and dysarthria following a fall. Noted to have a genitourinary infection, w/ acute renal failure and hyponatremia...the likely underlying precipitants.. Encephalitis is less likely.. MRI brain is reassuringly negative for acute intracranial pathology.. CD$ [id number] P: OK to defer LP for CSF evaluation for now Skilled therapies as necessary Continued medical management and supportive care per primary Consultation Date/Type/Reason Admit Date/Time Feb 27, 2019 at 12:49 Type of Consult Neurology Reason for Consultation dysarthria Requesting Provider: WATSON VILLANUEVA Date/Time of Note DATE: 03/02/19 TIME: 13:23 24 HR Interval Summary Free Text/Dictation Continues acute care Exam/Review of Systems Exam Vitals Vital Signs Date Temp Pulse Resp B/P (MAP) Pulse Ox O2 O2 Flow FiO2 Time Delivery Rate 03/02/19 98 12:26 03/02/19 97.8 19 130/80 90 11:42 (97) 03/02/19 Room Air 04:00 02/27/19 2.0 18:12 Intake and Output 03/01/19 03/01/19 03/02/19 1515:00 23:00 07:00 IntakeIntake Total 2550 ml 200 ml OutputOutput Total 1100 ml 1100 ml BalanceBalance 1450 ml -900 ml Results Result Diagram: 03/02/19 0607 03/02/19 0607 Results 24hrs Laboratory Tests Test 03/02/19 06:07 White Blood Count 12.8 H Red Blood Count 3.29 L Hemoglobin 10.3 L Hematocrit 30.8 L Mean Corpuscular Volume 93.6 Mean Corpuscular Hemoglobin 31.3 Mean Corpuscular Hemoglobin Concent 33.4 Red Cell Distribution Width 15.6 H Platelet Count 403 Mean Platelet Volume 9.3 Immature Granulocytes % 8.900 H Neutrophils % 68.3 Segmented Neutrophils % (Manual) 70 Band Neutrophils % (Manual) 5 H Lymphocytes % 13.9 L Lymphocytes % (Manual) 16 Monocytes % 7.2 Monocytes % (Manual) 6 Eosinophils % 1.1 Basophils % 0.6 Metamyelocytes % (manual) 2 H Promyelocytes % (Manual) 1 H Nucleated Red Blood Cells % 0.0 Immature Granulocytes # 1.140 H Neutrophils # 8.8 H Neutrophils # (Manual) 9.0 H Band Neutrophils # 0.6 Lymphocytes (Manual) 2.0 Lymphocytes # 1.8 Monocytes # 0.9 Monocytes # (Manual) 0.7 Eosinophils # 0.1 Basophils # 0.1 Metamyelocytes # 0.2 H Promyelocytes # 0.1 H Nucleated Red Blood Cells # 0.0 Platelet Estimate NORMAL Polychromasia 3+ Poikilocytosis 2+ Anisocytosis 1+ Macrocytosis 1+ Sodium Level 138 Potassium Level 3.8 Chloride Level 103 Carbon Dioxide Level 29 Anion Gap 6 Blood Urea Nitrogen 47 #H Creatinine 2.70 H Est Glomerular Filtrat Rate mL/min Glucose Level 116 Calcium Level 8.2 L Magnesium Level 2.2 Total Bilirubin 0.4 Direct Bilirubin 0.00 Indirect Bilirubin 0.4 Aspartate Amino Transf (AST/SGOT) 95 #H Alanine Aminotransferase (ALT/SGPT) 69 Alkaline Phosphatase 108 Total Protein 6.0 L Albumin 2.5 L Globulin 3.50 H Albumin/Globulin Ratio 0.71 Medications Medication Current Medications Divalproex Sodium (Depakote Er) 500 mg BID PO Last administered on 03/02/19at 08:08; Admin Dose 500 MG; Start 02/27/19 at 21:00 Doxazosin Mesylate (Cardura) 4 mg HS PO Last administered on 03/01/19at 20:58; Admin Dose 4 MG; Start 02/27/19 at 21:00 Dutasteride (Avodart) 0.5 mg DAILY PO Last administered on 03/02/19at 08:07; Admin Dose 0.5 MG; Start 02/28/19 at 09:00 Atorvastatin Calcium (Lipitor) 10 mg DAILY@21 PO Last administered on 03/01/19at 20:58; Admin Dose 10 MG; Start 02/27/19 at 21:00 IV Flush (NS 3 ml) 3 ml PER PROTOCOL IV ; Start 02/27/19 at 14:00 Ondansetron HCl (Zofran Inj) 4 mg Q6H PRN IV NAUSEA/VOMITING; Start 02/27/19 at 14:00 Aspirin (Aspirin) 81 mg DAILY PO Last administered on 03/02/19at 08:07; Admin Dose 81 MG; Start 02/28/19 at 09:00 Acetaminophen (Tylenol Tab) 650 mg Q6H PRN PO .PAIN 1-3 OR TEMP; Start 02/27/19 at 14:00 Docusate Sodium (Colace) 100 mg Q12H PRN PO .CONSTIPATION Last administered on 02/28/19 08:39; Admin Dose 100 MG; Start 02/27/19 at 14:00 Magnesium Hydroxide (Milk Of Mag) 30 ml DAILY PRN PO .CONSTIPATION Last administered on 02/28/19 08:39; Admin Dose 30 ML; Start 02/27/19 at 14:00 Lactated Ringer's 1,000 ml @ 40 mls/hr Q24H IV Last administered on 03/02/19 02:29; Admin Dose 100 MLS/HR; Start 02/27/19 at 14:00 Tramadol HCl (Ultram) 50 mg Q6H PRN PO MODERATE PAIN LEVEL 4-6; Start 02/27/19 at 15:00 Abacavir/ Lamivudine (Epzicom) 1 tab DAILY PO Last administered on 03/02/19 08:07; Admin Dose 1 TAB; Start 02/27/19 at 16:00 Miscellaneous Medication (Isentress) 400 mg BID PO Last administered on 03/02/19 08:07; Admin Dose 400 MG; Start 02/27/19 at 16:00 Phenol (Cepastat Lozenge) 1 lozenge Q1H PRN MT sore throat Last administered on 03/02/19 04:24; Admin Dose 1 LOZENGE; Start 02/27/19 at 15:30 Quetiapine Fumarate (Seroquel) 50 mg QHS PO Last administered on 03/01/19 20:57; Admin Dose 50 MG; Start 03/01/19 at 21:00 Ceftriaxone Sodium 50 ml @ 100 mls/hr Q24H IVPB Last administered on 03/01/19 16:34; Admin Dose 100 MLS/HR; Start 03/01/19 at 16:30 Famotidine (Pepcid) 20 mg DAILY PO Last administered on 03/02/19 08:07; Admin Dose 20 MG; Start 03/02/19 at 09:00 MALCOLM GOLD 18, 2019 13:24
--- NOTE | 2019-03-02 13:52 | CONS ---
Consult Date/Type/Reason Admit Date/Time Feb 27, 2019 at 12:49 Initial Consult Date 03/01/19 Type of Consultation: Urology Reason for Consultation Right hydroureteronephrosis and urinary tract infection Requesting Provider: WATSON VILLANUEVA Date/Time of Note DATE: 03/02/19 TIME: 13:48 Subjective Patient states that he is feeling better, he denies any dysuria, no flank tenderness and no hematuria Objective Vitals Vital Signs Date Temp Pulse Resp B/P (MAP) Pulse Ox O2 O2 Flow FiO2 Time Delivery Rate 03/02/19 98 12:26 03/02/19 97.8 19 130/80 90 11:42 (97) 03/02/19 Room Air 04:00 02/27/19 2.0 18:12 Intake and Output 03/01/19 03/01/19 03/02/19 1515:00 23:00 07:00 IntakeIntake Total 2550 ml 200 ml OutputOutput Total 1100 ml 1100 ml BalanceBalance 1450 ml -900 ml Exam The abdomen is soft, there is no flank tenderness. Urine culture grew Proteus mirabilis that is sensitive to all antibiotic tested except nitrofurantoin. Patient was switched from meropenem to ceftriaxone. Results/Medications Result Diagram: 03/02/19 0607 03/02/19 0607 Results 24 hrs Laboratory Tests Test 03/02/19 06:07 White Blood Count 12.8 H Red Blood Count 3.29 L Hemoglobin 10.3 L Hematocrit 30.8 L Mean Corpuscular Volume 93.6 Mean Corpuscular Hemoglobin 31.3 Mean Corpuscular Hemoglobin Concent 33.4 Red Cell Distribution Width 15.6 H Platelet Count 403 Mean Platelet Volume 9.3 Immature Granulocytes % 8.900 H Neutrophils % 68.3 Segmented Neutrophils % (Manual) 70 Band Neutrophils % (Manual) 5 H Lymphocytes % 13.9 L Lymphocytes % (Manual) 16 Monocytes % 7.2 Monocytes % (Manual) 6 Eosinophils % 1.1 Basophils % 0.6 Metamyelocytes % (manual) 2 H Promyelocytes % (Manual) 1 H Nucleated Red Blood Cells % 0.0 Immature Granulocytes # 1.140 H Neutrophils # 8.8 H Neutrophils # (Manual) 9.0 H Band Neutrophils # 0.6 Lymphocytes (Manual) 2.0 Lymphocytes # 1.8 Monocytes # 0.9 Monocytes # (Manual) 0.7 Eosinophils # 0.1 Basophils # 0.1 Metamyelocytes # 0.2 H Promyelocytes # 0.1 H Nucleated Red Blood Cells # 0.0 Platelet Estimate NORMAL Polychromasia 3+ Poikilocytosis 2+ Anisocytosis 1+ Macrocytosis 1+ Sodium Level 138 Potassium Level 3.8 Chloride Level 103 Carbon Dioxide Level 29 Anion Gap 6 Blood Urea Nitrogen 47 #H Creatinine 2.70 H Est Glomerular Filtrat Rate mL/min Glucose Level 116 Calcium Level 8.2 L Magnesium Level 2.2 Total Bilirubin 0.4 Direct Bilirubin 0.00 Indirect Bilirubin 0.4 Aspartate Amino Transf (AST/SGOT) 95 #H Alanine Aminotransferase (ALT/SGPT) 69 Alkaline Phosphatase 108 Total Protein 6.0 L Albumin 2.5 L Globulin 3.50 H Albumin/Globulin Ratio 0.71 Home Meds Reported Medications Amiodarone Hcl* (Amiodarone Hcl*) 200 Mg Tablet, 200 MG PO DAILY, #30 TAB 02/27/19 Raltegravir Potassium* (Isentress*) 400 Mg Tablet, 400 MG PO BID, TAB 02/27/19 Abacavir Sulfate/Lamivudine (Abacavir-Lamivudine 600-300 mg) 1 Each Tablet, 1 TAB PO DAILY 02/27/19 Dutasteride* (Avodart*) 0.5 Mg Capsule, 0.5 MG PO DAILY, CAP 02/27/19 Quetiapine Fumarate* (Quetiapine Fumarate*) 25 Mg Tablet, 25 MG PO BID, TAB 02/27/19 Pravastatin Sodium* (Pravastatin Sodium*) 10 Mg Tablet, 10 MG PO HS, TAB 02/27/19 Doxazosin Mesylate* (Doxazosin Mesylate*) 4 Mg Tablet, 4 MG PO HS, TAB 02/27/19 Metoprolol Tartrate* (Lopressor*) 50 Mg Tab, 50 MG PO BID, #60 TAB 02/27/19 Divalproex Sodium* (Depakote ER*) 500 Mg Tabsr, 500 MG PO BID, #30 TAB.SA 02/27/19 Discontinued Reported Medications [metoprolol] No Conflict Check 04/22/13 [amiodarone] No Conflict Check 04/22/13 Medications Current Medications Divalproex Sodium (Depakote Er) 500 mg BID PO Last administered on 03/02/19at 08:08; Admin Dose 500 MG; Start 02/27/19 at 21:00 Doxazosin Mesylate (Cardura) 4 mg HS PO Last administered on 03/01/19 20:58; Admin Dose 4 MG; Start 02/27/19 at 21:00 Dutasteride (Avodart) 0.5 mg DAILY PO Last administered on 03/02/19 08:07; Admin Dose 0.5 MG; Start 02/28/19 at 09:00 Atorvastatin Calcium (Lipitor) 10 mg DAILY@21 PO Last administered on 03/01/19 20:58; Admin Dose 10 MG; Start 02/27/19 at 21:00 IV Flush (NS 3 ml) 3 ml PER PROTOCOL IV ; Start 02/27/19 at 14:00 Ondansetron HCl (Zofran Inj) 4 mg Q6H PRN IV NAUSEA/VOMITING; Start 02/27/19 at 14:00 Aspirin (Aspirin) 81 mg DAILY PO Last administered on 03/02/19 08:07; Admin Dose 81 MG; Start 02/28/19 at 09:00 Acetaminophen (Tylenol Tab) 650 mg Q6H PRN PO .PAIN 1-3 OR TEMP; Start 02/27/19 at 14:00 Docusate Sodium (Colace) 100 mg Q12H PRN PO .CONSTIPATION Last administered on 02/28/19 08:39; Admin Dose 100 MG; Start 02/27/19 at 14:00 Magnesium Hydroxide (Milk Of Mag) 30 ml DAILY PRN PO .CONSTIPATION Last administered on 02/28/19 08:39; Admin Dose 30 ML; Start 02/27/19 at 14:00 Lactated Ringer's 1,000 ml @ 40 mls/hr Q24H IV Last administered on 03/02/19 02:29; Admin Dose 100 MLS/HR; Start 02/27/19 at 14:00 Tramadol HCl (Ultram) 50 mg Q6H PRN PO MODERATE PAIN LEVEL 4-6; Start 02/27/19 at 15:00 Abacavir/ Lamivudine (Epzicom) 1 tab DAILY PO Last administered on 03/02/19 08:07; Admin Dose 1 TAB; Start 02/27/19 at 16:00 Miscellaneous Medication (Isentress) 400 mg BID PO Last administered on 03/02/19 08:07; Admin Dose 400 MG; Start 02/27/19 at 16:00 Phenol (Cepastat Lozenge) 1 lozenge Q1H PRN MT sore throat Last administered on 03/02/19 04:24; Admin Dose 1 LOZENGE; Start 02/27/19 at 15:30 Quetiapine Fumarate (Seroquel) 50 mg QHS PO Last administered on 03/01/19 20:57; Admin Dose 50 MG; Start 03/01/19 at 21:00 Ceftriaxone Sodium 50 ml @ 100 mls/hr Q24H IVPB Last administered on 03/01/19 16:34; Admin Dose 100 MLS/HR; Start 03/01/19 at 16:30 Famotidine (Pepcid) 20 mg DAILY PO Last administered on 03/02/19 08:07; Admin Dose 20 MG; Start 03/02/19 at 09:00 Assessment/Plan Hospital Course (Demo Recall) This is a 73-year-old male who is known to be HIV positive and has been having difficulty with his gait and had been falling and had slurred speech lately. The patient underwent a CT scan of the abdomen and pelvis and that showed right hydroureteronephrosis with the right ureter dilated all the way to the bladder without evidence of any obstructing stone therefore a urological consultation was requested. The patient states that he did have a urinary tract infection about 3 weeks earlier he usually does have nocturia 3-4 times a night during the day he urinates every 2 hours he denies any urgency or urgency incontinence no history of dysuria and no history of gross hematuria. He describes his urinary stream is slow he does have postvoid dribbling and he feels he does not empty his bladder well. He has been seeing a urologist and has been on doxazosin and dutasteride. Urine culture did show Proteus mirabilis sensitive to ceftriaxone, Cipro and Bactrim. Impression: Urinary tract infection and right hydroureteronephrosis most likely secondary to the infection with Proteus mirabilis and that is sensitive to the ceftriaxone that he is on at the present. Plan: Continue the antibiotics, dutasteride and doxazosin. He may be placed on either Bactrim or Cipro at the time of discharge. MARQUITA WALTERS MD Mar 02, 2019 13:52
--- NOTE | 2019-03-02 14:13 | PN ---
Date/Time of Note Date/Time of Note DATE: 03/02/19 TIME: 14:12 Objective Vitals Vital Signs Date Temp Pulse Resp B/P (MAP) Pulse Ox O2 O2 Flow FiO2 Time Delivery Rate 03/02/19 98 12:26 03/02/19 97.8 19 130/80 90 11:42 (97) 03/02/19 Room Air 04:00 02/27/19 2.0 18:12 Intake and Output 03/01/19 03/01/19 03/02/19 1515:00 23:00 07:00 IntakeIntake Total 2550 ml 200 ml OutputOutput Total 1100 ml 1100 ml BalanceBalance 1450 ml -900 ml Results Result Diagram: 03/02/1907 03/02/19 0607 Medications Medications Current Medications Divalproex Sodium (Depakote Er) 500 mg BID PO Last administered on 03/02/19 08:08; Admin Dose 500 MG; Start 02/27/19 at 21:00 Doxazosin Mesylate (Cardura) 4 mg HS PO Last administered on 03/01/19at 20:58; Admin Dose 4 MG; Start 02/27/19 at 21:00 Dutasteride (Avodart) 0.5 mg DAILY PO Last administered on 03/02/19 08:07; Admin Dose 0.5 MG; Start 02/28/19 at 09:00 Atorvastatin Calcium (Lipitor) 10 mg DAILY@21 PO Last administered on 03/01/19at 20:58; Admin Dose 10 MG; Start 02/27/19 at 21:00 IV Flush (NS 3 ml) 3 ml PER PROTOCOL IV ; Start 02/27/19 at 14:00 Ondansetron HCl (Zofran Inj) 4 mg Q6H PRN IV NAUSEA/VOMITING; Start 02/27/19 at 14:00 Aspirin (Aspirin) 81 mg DAILY PO Last administered on 03/02/19at 08:07; Admin Dose 81 MG; Start 02/28/19 at 09:00 Acetaminophen (Tylenol Tab) 650 mg Q6H PRN PO .PAIN 1-3 OR TEMP; Start 02/27/19 at 14:00 Docusate Sodium (Colace) 100 mg Q12H PRN PO .CONSTIPATION Last administered on 02/28/19at 08:39; Admin Dose 100 MG; Start 02/27/19 at 14:00 Magnesium Hydroxide (Milk Of Mag) 30 ml DAILY PRN PO .CONSTIPATION Last administered on 02/28/19 08:39; Admin Dose 30 ML; Start 02/27/19 at 14:00 Tramadol HCl (Ultram) 50 mg Q6H PRN PO MODERATE PAIN LEVEL 4-6; Start 02/27/19 at 15:00 Abacavir/ Lamivudine (Epzicom) 1 tab DAILY PO Last administered on 03/02/19 08:07; Admin Dose 1 TAB; Start 02/27/19 at 16:00 Miscellaneous Medication (Isentress) 400 mg BID PO Last administered on 03/02/19 08:07; Admin Dose 400 MG; Start 02/27/19 at 16:00 Phenol (Cepastat Lozenge) 1 lozenge Q1H PRN MT sore throat Last administered on 03/02/19 04:24; Admin Dose 1 LOZENGE; Start 02/27/19 at 15:30 Quetiapine Fumarate (Seroquel) 50 mg QHS PO Last administered on 03/01/19 20:57; Admin Dose 50 MG; Start 03/01/19 at 21:00 Ceftriaxone Sodium 50 ml @ 100 mls/hr Q24H IVPB Last administered on 03/01/19 16:34; Admin Dose 100 MLS/HR; Start 03/01/19 at 16:30 Famotidine (Pepcid) 20 mg DAILY PO Last administered on 03/02/19 08:07; Admin Dose 20 MG; Start 03/02/19 at 09:00 VTE Prophylaxis Risk score (from Nsg)>0 risk: 4 SCD applied (from Nsg): Yes Lines/Catheters IV Catheter Type: Zimmer in Place: No Assessment/Plan Hospital Course Subjective Patient feeling well when compared to admission, states he still feels his speech is slightly slurred however he feels it is improving and he cannot know for certain without his dentures Objective Physical exam General: Patient is laying in bed and answers questions appropriately Mentation: Patient is alert and oriented 4, Head: Normocephalic atraumatic Eyes: EOMI, pupils reactive to light Neck: Supple, nontender, midline Respiratory: Clear to auscultation bilaterally Cardiovascular: regular rate, no obvious murmurs Gastrointestinal: non-tender to palpation, bowel sounds heard. Neurological: Moves all extremities spontaneously Skin: No new skin lesions Assessment and plan Slurred speech, improving -MRI head negative for acute stroke -CT head negative for acute issues -Echo noted -Ultrasound carotid noted -speech therapy, PT, OT on board -Continue aspirin and statin -Neurology has been consulted, no need for CSF lumbar puncture -Questionable due to infection and having no dentures versus actual TIA Acute renal failure -Continues to improve -Renal ultrasound noted -CT of the abdomen pelvis showing possible pyelonephritis and cystitis -Nephrology on board -Urology has been consulted due to hydroureteronephrosis seen on CT -Continue IV fluids Electrolyte derangement -Replete as needed HIV -Continue on therapy -Infectious disease on board UTI with possible pyelonephritis -On ertapenem -Infectious disease consulted BPH -Continue home medications Sore throat -Continue as needed cough drops History of arrhythmia -Monitor closely Hypertension -Off medications for now, is stable, will reevaluate need of BP medications before discharge Disposition -continue to monitor renal function, WATSON James Mar 02, 2019 14:13
--- NOTE | 2019-03-02 14:30 | CONS ---
Assessment/Plan Assessment/Plan Hospital Course (Demo Recall) Patient is alert feels good denies pain no fevers overnight WBC 12.8 BUN 47 creatinine 2.7 CD4 count 381 Urine culture grew Proteus mirabilis resistant only to Macrobid Antimicrobials: Aniya Major, Epzicom Microbiology: Urine culture growing gram-negative rods Physical examination: Well-nourished well-developed elderly man who is awake in no distress. Head atraumatic normocephalic neck is supple chest rise symmetrical breath sounds clear heart S1-S2 abdomen soft bowel sounds present extremities without cyanosis Assessment: 1. Systemic inflammatory response syndrome with leukocytosis 2. Urinary tract infection 3. HIV disease, on therapy 4. Acute renal failure questionable on chronic kidney disease 5. History of BPH 6. Mental status change on admission, currently at baseline Plan: Patient remains stable, renal function improving, continue antibiotics Consultation Date/Type/Reason Admit Date/Time Feb 27, 2019 at 12:49 Initial Consult Date Type of Consult id Requesting Provider: WATSON VILLANUEVA Date/Time of Note DATE: 03/02/19 TIME: 14:29 Exam/Review of Systems Exam Vitals Vital Signs Date Temp Pulse Resp B/P (MAP) Pulse Ox O2 O2 Flow FiO2 Time Delivery Rate 03/02/19 98 12:26 03/02/19 97.8 19 130/80 90 11:42 (97) 03/02/19 Room Air 04:00 02/27/19 2.0 18:12 Intake and Output 03/01/19 03/01/19 03/02/19 1515:00 23:00 07:00 IntakeIntake Total 2550 ml 200 ml OutputOutput Total 1100 ml 1100 ml BalanceBalance 1450 ml -900 ml Results Result Diagram: 03/02/19 0607 03/02/19 0607 Results 24hrs Laboratory Tests Test 03/02/19 06:07 White Blood Count 12.8 H Red Blood Count 3.29 L Hemoglobin 10.3 L Hematocrit 30.8 L Mean Corpuscular Volume 93.6 Mean Corpuscular Hemoglobin 31.3 Mean Corpuscular Hemoglobin Concent 33.4 Red Cell Distribution Width 15.6 H Platelet Count 403 Mean Platelet Volume 9.3 Immature Granulocytes % 8.900 H Neutrophils % 68.3 Segmented Neutrophils % (Manual) 70 Band Neutrophils % (Manual) 5 H Lymphocytes % 13.9 L Lymphocytes % (Manual) 16 Monocytes % 7.2 Monocytes % (Manual) 6 Eosinophils % 1.1 Basophils % 0.6 Metamyelocytes % (manual) 2 H Promyelocytes % (Manual) 1 H Nucleated Red Blood Cells % 0.0 Immature Granulocytes # 1.140 H Neutrophils # 8.8 H Neutrophils # (Manual) 9.0 H Band Neutrophils # 0.6 Lymphocytes (Manual) 2.0 Lymphocytes # 1.8 Monocytes # 0.9 Monocytes # (Manual) 0.7 Eosinophils # 0.1 Basophils # 0.1 Metamyelocytes # 0.2 H Promyelocytes # 0.1 H Nucleated Red Blood Cells # 0.0 Platelet Estimate NORMAL Polychromasia 3+ Poikilocytosis 2+ Anisocytosis 1+ Macrocytosis 1+ Sodium Level 138 Potassium Level 3.8 Chloride Level 103 Carbon Dioxide Level 29 Anion Gap 6 Blood Urea Nitrogen 47 #H Creatinine 2.70 H Est Glomerular Filtrat Rate mL/min Glucose Level 116 Calcium Level 8.2 L Magnesium Level 2.2 Total Bilirubin 0.4 Direct Bilirubin 0.00 Indirect Bilirubin 0.4 Aspartate Amino Transf (AST/SGOT) 95 #H Alanine Aminotransferase (ALT/SGPT) 69 Alkaline Phosphatase 108 Total Protein 6.0 L Albumin 2.5 L Globulin 3.50 H Albumin/Globulin Ratio 0.71 Medications Medication Current Medications Divalproex Sodium (Depakote Er) 500 mg BID PO Last administered on 03/02/19at 08:08; Admin Dose 500 MG; Start 02/27/19 at 21:00 Doxazosin Mesylate (Cardura) 4 mg HS PO Last administered on 03/01/19at 20:58; Admin Dose 4 MG; Start 02/27/19 at 21:00 Dutasteride (Avodart) 0.5 mg DAILY PO Last administered on 03/02/19at 08:07; Admin Dose 0.5 MG; Start 02/28/19 at 09:00 Atorvastatin Calcium (Lipitor) 10 mg DAILY@21 PO Last administered on 03/01/19at 20:58; Admin Dose 10 MG; Start 02/27/19 at 21:00 IV Flush (NS 3 ml) 3 ml PER PROTOCOL IV ; Start 02/27/19 at 14:00 Ondansetron HCl (Zofran Inj) 4 mg Q6H PRN IV NAUSEA/VOMITING; Start 02/27/19 at 14:00 Aspirin (Aspirin) 81 mg DAILY PO Last administered on 03/02/19 08:07; Admin Dose 81 MG; Start 02/28/19 at 09:00 Acetaminophen (Tylenol Tab) 650 mg Q6H PRN PO .PAIN 1-3 OR TEMP; Start 02/27/19 at 14:00 Docusate Sodium (Colace) 100 mg Q12H PRN PO .CONSTIPATION Last administered on 02/28/19 08:39; Admin Dose 100 MG; Start 02/27/19 at 14:00 Magnesium Hydroxide (Milk Of Mag) 30 ml DAILY PRN PO .CONSTIPATION Last administered on 02/28/19 08:39; Admin Dose 30 ML; Start 02/27/19 at 14:00 Tramadol HCl (Ultram) 50 mg Q6H PRN PO MODERATE PAIN LEVEL 4-6; Start 02/27/19 at 15:00 Abacavir/ Lamivudine (Epzicom) 1 tab DAILY PO Last administered on 03/02/19 08:07; Admin Dose 1 TAB; Start 02/27/19 at 16:00 Miscellaneous Medication (Isentress) 400 mg BID PO Last administered on 08:07; Admin Dose 400 MG; Start 02/27/19 at 16:00 Phenol (Cepastat Lozenge) 1 lozenge Q1H PRN MT sore throat Last administered on 03/02/19 04:24; Admin Dose 1 LOZENGE; Start 02/27/19 at 15:30 Quetiapine Fumarate (Seroquel) 50 mg QHS PO Last administered on 03/01/19 20:57; Admin Dose 50 MG; Start 03/01/19 at 21:00 Ceftriaxone Sodium 50 ml @ 100 mls/hr Q24H IVPB Last administered on 03/01/19 16:34; Admin Dose 100 MLS/HR; Start 03/01/19 at 16:30 Famotidine (Pepcid) 20 mg DAILY PO Last administered on 03/02/19 08:07; Admin Dose 20 MG; Start 03/02/19 at 09:00 TYESHA MCKEE NP Mar 02, 2019 14:30
[2019-03-02] MEDS: CEFTRIAXONE 1 GM/50 ML (PMX) 50 ML IVPB SCH (16:17)
[2019-03-02] MEDS: ATORVASTATIN 10 MG TAB PO SCH (21:56)
[2019-03-02] MEDS: QUETIAPINE 25 MG TAB PO SCH (21:56)
[2019-03-02] MEDS: DOXAZOSIN 4 MG TAB PO SCH (21:56)
[2019-03-03 01:09] VITALS: BP 126/90; PULSE 93; RESP 18
--- NOTE | 2019-03-03 03:48 | PN ---
DATE: 03/02/2019 SUBJECTIVE: The patient is stable. No events overnight. No fevers, chills, nausea, vomiting. OBJECTIVE: VITAL SIGNS: Blood pressure 130/80, respiration 19, pulse 109, temperature 97.8. HEENT: Head is normocephalic. NECK: Supple. HEART: Regular rate. LUNGS: Show diminished breath sounds at the base. ABDOMEN: Soft, nontender to palpation without rebound or guarding. EXTREMITIES: Negative for clubbing, cyanosis, no edema. DERMATOLOGIC: No rashes. MUSCULOSKELETAL: No joint effusion. NEUROLOGIC: No change in exam. MEDICATIONS: Reviewed. LABORATORY DATA: Has been reviewed. IMAGING STUDIES: Reviewed. ASSESSMENT AND PLAN: 1. Nonoliguric acute kidney injury on top of chronic kidney disease with previous baseline creatinin e around 1.3 to 1.4 mg/dL. Etiology of acute kidney injury is secondary to hemodynamics, volume depl etion. Questionable component of obstructive uropathy. The patient's renal function has slowly been improving with IV hydration. At this point, continue current treatment plan, supportive care, renal ly dose all meds. 2. Anemia. Monitor hemoglobin and hematocrit levels. 3. Mineral bone disorder. Monitor calcium and phosphorus levels. 4. Hypertension. Continue current blood pressure regimen. Defer any WILLIE inhibitor, ARB at this jono e. Monitor closely on IV fluids. 5. Hyponatremia secondary to volume depletion, acute kidney injury, improved with IV hydration. 6. Urinary tract infection. Continue current antibiotic regimen. 7. Benign prostatic hypertrophy. Continue medical management. 8. Slurred speech, questionable transient ischemic attack, improving. Continue to monitor. 9. Human immunodeficiency virus. Continue HAART therapy. Follow up with infectious disease. Dictated By: EFRAIN MEJIA/VIKRAM Conf#: [id number] DID#: [id number] CC: RAIN CARSON MD;*EndCC*
[2019-03-03 07:20] VITALS: BP 128/79; PULSE 95; RESP 16
[2019-03-03] MEDS: ASPIRIN 81 MG TAB PO SCH (09:11)
[2019-03-03] MEDS: DIVALPROEX (ER) 500 MG TAB PO SCH ×2 (09:11→20:24)
[2019-03-03] MEDS: RALTEGRAVIR 400 MG TAB PO SCH ×2 (09:11→20:25)
[2019-03-03] MEDS: FAMOTIDINE 20 MG TAB PO SCH (09:11)
[2019-03-03] MEDS: DUTASTERIDE 0.5 MG CAP PO SCH (09:11)
--- NOTE | 2019-03-03 10:35 | CONS ---
Assessment/Plan Assessment/Plan Hospital Course (Demo Recall) No acute events Urine culture grew Proteus mirabilis resistant only to Macrobid Antimicrobials: Aniya Major, Epdimas Microbiology: Urine culture growing gram-negative rods Physical examination: Well-nourished well-developed elderly man who is awake in no distress. Head atraumatic normocephalic neck is supple chest rise symmetrical breath sounds clear heart S1-S2 abdomen soft bowel sounds present extremities without cyanosis Assessment: 1. Systemic inflammatory response syndrome with leukocytosis 2. Urinary tract infection 3. HIV disease, stable on therapy 4. Acute renal failure questionable on chronic kidney disease 5. History of BPH 6. Mental status change on admission, currently at baseline Plan: Patient remains stable, renal rec-s noted, renal function improving, continue antibiotics, ok downgrade to PO upon dc to complete 10 days Consultation Date/Type/Reason Admit Date/Time Feb 27, 2019 at 12:49 Initial Consult Date Type of Consult id Requesting Provider: WATSON VILLANUEVA Date/Time of Note DATE: 03/03/19 TIME: 10:33 Exam/Review of Systems Exam Vitals Vital Signs Date Temp Pulse Resp B/P (MAP) Pulse Ox O2 O2 Flow FiO2 Time Delivery Rate 03/03/19 98.4 95 16 128/79 90 07:20 (95) 03/02/19 Room Air 04:00 02/27/19 2.0 18:12 Intake and Output 03/02/19 03/02/19 03/03/19 1515:00 23:00 07:00 IntakeIntake Total 320 ml 1200 ml OutputOutput Total 1525 ml 1450 ml BalanceBalance 320 ml -325 ml -1450 ml Results Result Diagram: 03/03/19 0455 03/03/19 0455 Results 24hrs Laboratory Tests Test 03/03/19 04:55 White Blood Count 12.0 H Red Blood Count 3.12 L Hemoglobin 9.9 L Hematocrit 29.8 L Mean Corpuscular Volume 95.5 Mean Corpuscular Hemoglobin 31.7 Mean Corpuscular Hemoglobin Concent 33.2 Red Cell Distribution Width 15.8 H Platelet Count 402 Mean Platelet Volume 9.1 Immature Granulocytes % 6.400 H Neutrophils % 65.8 Segmented Neutrophils % (Manual) 75 Lymphocytes % 17.4 Lymphocytes % (Manual) 13 L Reactive Lymphocytes % (Manual) 3 H Monocytes % 8.5 Monocytes % (Manual) 6 Eosinophils % 1.3 Basophils % 0.6 Metamyelocytes % (manual) 1 H Myelocytes % (Manual) 2 H Nucleated Red Blood Cells % 0.0 Immature Granulocytes # 0.760 H Neutrophils # 7.9 H Lymphocytes (Manual) 1.5 Lymphocytes # 2.1 Reactive Lymphocytes # 0.3 H Monocytes # 1.0 H Monocytes # (Manual) 0.7 Eosinophils # 0.2 Basophils # 0.1 Metamyelocytes # 0.1 H Myelocytes # 0.2 H Nucleated Red Blood Cells # 0.0 Platelet Estimate NORMAL Anisocytosis 1+ Macrocytosis 1+ Sodium Level 140 Potassium Level 3.8 Chloride Level 103 Carbon Dioxide Level 31 Anion Gap 6 Blood Urea Nitrogen 37 H Creatinine 2.39 H Est Glomerular Filtrat Rate mL/min Glucose Level 101 Calcium Level 8.3 L Magnesium Level 1.8 Total Bilirubin 0.4 Direct Bilirubin 0.00 Indirect Bilirubin 0.4 Aspartate Amino Transf (AST/SGOT) 81 H Alanine Aminotransferase (ALT/SGPT) 66 Alkaline Phosphatase 96 Total Protein 6.2 Albumin 2.6 L Globulin 3.60 H Albumin/Globulin Ratio 0.72 Medications Medication Current Medications Divalproex Sodium (Depakote Er) 500 mg BID PO Last administered on 03/03/19 09:11; Admin Dose 500 MG; Start 02/27/19 at 21:00 Doxazosin Mesylate (Cardura) 4 mg HS PO Last administered on 03/02/19 21:56; Admin Dose 4 MG; Start 02/27/19 at 21:00 Dutasteride (Avodart) 0.5 mg DAILY PO Last administered on 03/03/19 09:11; Admin Dose 0.5 MG; Start 02/28/19 at 09:00 Atorvastatin Calcium (Lipitor) 10 mg DAILY@21 PO Last administered on 03/02/19 21:56; Admin Dose 10 MG; Start 02/27/19 at 21:00 IV Flush (NS 3 ml) 3 ml PER PROTOCOL IV ; Start 02/27/19 at 14:00 Ondansetron HCl (Zofran Inj) 4 mg Q6H PRN IV NAUSEA/VOMITING; Start 02/27/19 at 14:00 Aspirin (Aspirin) 81 mg DAILY PO Last administered on 03/03/19 09:11; Admin Dose 81 MG; Start 02/28/19 at 09:00 Acetaminophen (Tylenol Tab) 650 mg Q6H PRN PO .PAIN 1-3 OR TEMP; Start 02/27/19 at 14:00 Docusate Sodium (Colace) 100 mg Q12H PRN PO .CONSTIPATION Last administered on 02/28/19 08:39; Admin Dose 100 MG; Start 02/27/19 at 14:00 Magnesium Hydroxide (Milk Of Mag) 30 ml DAILY PRN PO .CONSTIPATION Last administered on 02/28/19 08:39; Admin Dose 30 ML; Start 02/27/19 at 14:00 Tramadol HCl (Ultram) 50 mg Q6H PRN PO MODERATE PAIN LEVEL 4-6; Start 02/27/19 at 15:00 Abacavir/ Lamivudine (Epzicom) 1 tab DAILY PO Last administered on 03/02/19 08:07; Admin Dose 1 TAB; Start 02/27/19 at 16:00 Miscellaneous Medication (Isentress) 400 mg BID PO Last administered on 03/03/19 09:11; Admin Dose 400 MG; Start 02/27/19 at 16:00 Phenol (Cepastat Lozenge) 1 lozenge Q1H PRN MT sore throat Last administered on 03/02/19 14:39; Admin Dose 1 LOZENGE; Start 02/27/19 at 15:30 Quetiapine Fumarate (Seroquel) 50 mg QHS PO Last administered on 03/02/19 21:56; Admin Dose 50 MG; Start 03/01/19 at 21:00 Ceftriaxone Sodium 50 ml @ 100 mls/hr Q24H IVPB Last administered on 03/02/19 16:17; Admin Dose 100 MLS/HR; Start 03/01/19 at 16:30 Famotidine (Pepcid) 20 mg DAILY PO Last administered on 03/03/19 09:11; Admin Dose 20 MG; Start 03/02/19 at 09:00 TYESHA MCKEE NP Mar 03, 2019 10:35
[2019-03-03] MEDS: MAGNESIUM HYDROXIDE 30ML CUP PO PRN (12:00)
--- NOTE | 2019-03-03 13:06 | PN ---
DATE: 03/03/2019 SUBJECTIVE: The patient is stable, no events overnight. OBJECTIVE: VITAL SIGNS: Blood pressure is 128/79, respirations 16, pulse 95, temperature 98.4. HEENT: Head is normocephalic. NECK: Supple. HEART: Regular rate. LUNGS: Show diminished breath sounds at the base. ABDOMEN: Soft, nontender to palpation without rebound or guarding. EXTREMITIES: Negative for clubbing, cyanosis, no edema. DERMATOLOGIC: No rashes. MUSCULOSKELETAL: No joint effusion. NEUROLOGIC: No change in exam. MEDICATIONS: The patient's medications have been reviewed. LABORATORY DATA: Has been reviewed. ASSESSMENT AND PLAN: 1. Nonoliguric acute kidney injury on top of CKD with previous baseline creatinine around 1.3 to 1.4 mg/dL. Etiology of VIRY is secondary to volume depletion, questionable uropathy. The patient's adrienne l function has improved with IV hydration. Continue current treatment plan, supportive care, renally dose all meds. 2. Anemia. Monitor hemoglobin and hematocrit levels. 3. Mineral bone disorder, monitor calcium and phosphorus levels. 4. Hypertension. Continue current blood pressure regimen. Defer any WILLIE inhibitor or ARB at this t moni. 5. Hyponatremia, resolved. 6. Urinary tract infection. Continue current medical management. 7. Benign prostatic hypertrophy. Continue current treatment plan. 8. Slurred speech, questionable TIA. Continue to monitor. 9. Human immunodeficiency virus. Continue HAART therapy. Follow up with infectious disease. Dictated By: EFRAIN MEJIA/NTS Conf#: [id number] DID#: [id number] CC: RAIN CARSON MD; WATSON VILLANUEVA MD;*EndCC*
[2019-03-03] MEDS: ABACAVIR/LAMIVUDINE TAB PO SCH (13:26)
--- NOTE | 2019-03-03 13:57 | PN ---
Date/Time of Note Date/Time of Note DATE: 03/03/19 TIME: 13:56 Objective Vitals Vital Signs Date Temp Pulse Resp B/P (MAP) Pulse Ox O2 O2 Flow FiO2 Time Delivery Rate 03/03/19 98.4 95 16 128/79 90 07:20 (95) 03/02/19 Room Air 04:00 02/27/19 2.0 18:12 Intake and Output 03/02/19 03/02/19 03/03/19 1515:00 23:00 07:00 IntakeIntake Total 320 ml 1200 ml OutputOutput Total 1525 ml 1450 ml BalanceBalance 320 ml -325 ml -1450 ml Results Result Diagram: 03/03/19 0455 03/03/19 0455 Medications Medications Current Medications Divalproex Sodium (Depakote Er) 500 mg BID PO Last administered on 03/03/19 09:11; Admin Dose 500 MG; Start 02/27/19 at 21:00 Doxazosin Mesylate (Cardura) 4 mg HS PO Last administered on 03/02/19 21:56; Admin Dose 4 MG; Start 02/27/19 at 21:00 Dutasteride (Avodart) 0.5 mg DAILY PO Last administered on 03/03/19 09:11; Admin Dose 0.5 MG; Start 02/28/19 at 09:00 Atorvastatin Calcium (Lipitor) 10 mg DAILY@21 PO Last administered on 03/02/19 21:56; Admin Dose 10 MG; Start 02/27/19 at 21:00 IV Flush (NS 3 ml) 3 ml PER PROTOCOL IV ; Start 02/27/19 at 14:00 Ondansetron HCl (Zofran Inj) 4 mg Q6H PRN IV NAUSEA/VOMITING; Start 02/27/19 at 14:00 Aspirin (Aspirin) 81 mg DAILY PO Last administered on 03/03/19 09:11; Admin Dose 81 MG; Start 02/28/19 at 09:00 Acetaminophen (Tylenol Tab) 650 mg Q6H PRN PO .PAIN 1-3 OR TEMP; Start 02/27/19 at 14:00 Docusate Sodium (Colace) 100 mg Q12H PRN PO .CONSTIPATION Last administered on 02/28/19 08:39; Admin Dose 100 MG; Start 02/27/19 at 14:00 Magnesium Hydroxide (Milk Of Mag) 30 ml DAILY PRN PO .CONSTIPATION Last ad ministered on 03/03/19 12:00; Admin Dose 30 ML; Start 02/27/19 at 14:00 Tramadol HCl (Ultram) 50 mg Q6H PRN PO MODERATE PAIN LEVEL 4-6; Start 02/27/19 at 15:00 Abacavir/ Lamivudine (Epzicom) 1 tab DAILY PO Last administered on 03/03/19 13:26; Admin Dose 1 TAB; Start 02/27/19 at 16:00 Miscellaneous Medication (Isentress) 400 mg BID PO Last administered on 03/03/19 09:11; Admin Dose 400 MG; Start 02/27/19 at 16:00 Phenol (Cepastat Lozenge) 1 lozenge Q1H PRN MT sore throat Last administered on 03/02/19 14:39; Admin Dose 1 LOZENGE; Start 02/27/19 at 15:30 Quetiapine Fumarate (Seroquel) 50 mg QHS PO Last administered on 03/02/19 21:56; Admin Dose 50 MG; Start 03/01/19 at 21:00 Ceftriaxone Sodium 50 ml @ 100 mls/hr Q24H IVPB Last administered on 03/02/19 16:17; Admin Dose 100 MLS/HR; Start 03/01/19 at 16:30 Famotidine (Pepcid) 20 mg DAILY PO Last administered on 03/03/19 09:11; Admin Dose 20 MG; Start 03/02/19 at 09:00 VTE Prophylaxis Risk score (from Nsg)>0 risk: 4 SCD applied (from Ns): Yes Lines/Catheters IV Catheter Type: Zimmer in Place: No Assessment/Plan Hospital Course Subjective Patient feeling well when compared to admission, states he still feels his speech is slightly slurred however he feels it is improving and he cannot know for certain without his dentures Objective Physical exam General: Patient is laying in bed and answers questions appropriately Mentation: Patient is alert and oriented 4, Head: Normocephalic atraumatic Eyes: EOMI, pupils reactive to light Neck: Supple, nontender, midline Respiratory: Clear to auscultation bilaterally Cardiovascular: regular rate, no obvious murmurs Gastrointestinal: non-tender to palpation, bowel sounds heard. Neurological: Moves all extremities spontaneously Skin: No new skin lesions Assessment and plan Slurred speech, continues to improve daily -MRI head negative for acute stroke -CT head negative for acute issues -Echo noted -Ultrasound carotid noted -speech therapy, PT, OT on board -Continue aspirin and statin -Neurology has been consulted, no need for CSF lumbar puncture -Questionable due to infection and having no dentures versus actual TIA Acute renal failure -Continues to improve -Renal ultrasound noted -CT of the abdomen pelvis showing possible pyelonephritis and cystitis -Nephrology on board -Urology has been consulted due to hydroureteronephrosis seen on CT -Continue IV fluids Electrolyte derangement -Replete as needed HIV -Continue on therapy -Infectious disease on board UTI with possible pyelonephritis -On ertapenem, will change to PO on DC -Infectious disease consulted BPH -Continue home medications Sore throat -Continue as needed cough drops History of arrhythmia -Monitor closely Hypertension -Off medications for now, is stable, will reevaluate need of BP medications before discharge Disposition -continue to monitor renal function, ARU WATSON John Mar 03, 2019 13:57
[2019-03-03] MEDS ORDERED: SOD CHLORIDE 0.9% 1,000 ML IV SCH (14:00)
[2019-03-03 15:10] VITALS: BP 103/66; PULSE 96; RESP 16
[2019-03-03] MEDS: CEFTRIAXONE 1 GM/50 ML (PMX) 50 ML IVPB SCH (17:59)
[2019-03-03 20:00] VITALS: BP 129/74; PULSE 97; RESP 16
[2019-03-03] MEDS: ATORVASTATIN 10 MG TAB PO SCH (20:24)
[2019-03-03] MEDS: QUETIAPINE 25 MG TAB PO SCH (20:25)
[2019-03-03] MEDS: DOXAZOSIN 4 MG TAB PO SCH (20:26)
[2019-03-04 02:00] VITALS: BP 134/68; PULSE 88; RESP 18
[2019-03-04 07:38] VITALS: BP 119/74; PULSE 84; RESP 18
[2019-03-04] MEDS: DUTASTERIDE 0.5 MG CAP PO SCH (09:17)
[2019-03-04] MEDS: ABACAVIR/LAMIVUDINE TAB PO SCH (09:17)
[2019-03-04] MEDS: ASPIRIN 81 MG TAB PO SCH (09:17)
[2019-03-04] MEDS: DIVALPROEX (ER) 500 MG TAB PO SCH ×2 (09:18→20:40)
[2019-03-04] MEDS: RALTEGRAVIR 400 MG TAB PO SCH ×2 (09:18→20:40)
[2019-03-04] MEDS: FAMOTIDINE 20 MG TAB PO SCH (09:18)
[2019-03-04] MEDS ORDERED: MAGNESIUM SULFATE 2 GM/50 ML 50 ML IVPB ONE (10:00)
--- NOTE | 2019-03-04 10:56 | PN ---
DATE: 03/04/2019 SUBJECTIVE: The patient is stable, no events overnight. OBJECTIVE: VITAL SIGNS: Blood pressure is 119/74, pulse 84, respirations 18, temperature 98.3. HEENT: Head is normocephalic. NECK: Supple. HEART: Regular rate. LUNGS: Show diminished breath sounds at the base. ABDOMEN: Soft, nontender to palpation without rebound or guarding. EXTREMITIES: Negative for clubbing, cyanosis, no edema. DERMATOLOGIC: No rashes. MUSCULOSKELETAL: No joint effusion. NEUROLOGIC: No change in exam. MEDICATIONS: Reviewed. LABORATORY DATA: Reviewed. ASSESSMENT AND PLAN: 1. Nonoliguric acute kidney injury on top of chronic kidney disease with previous baseline creatinin e of 1.3 to 1.4 mg/dL. Etiology of acute kidney injury is secondary to volume depletion. Renal func tion has been slowly improving. Continue current treatment plan, supportive care, renally dose all m edications. 2. Hypomagnesemia, replete with magnesium sulfate. 3. Anemia. Monitor hemoglobin and hematocrit levels. 4. Mineral bone disorder, monitor calcium and phosphorus levels. 5. Hypertension. Continue current blood pressure regimen. Defer an WILLIE inhibitor or ARB at this ti me. 6. Urinary tract infection. The patient is completing antibiotic course. 7. Benign prostatic hypertrophy. Continue medical management. 8. Status post transient ischemic attack. 9. HIV. Continue HAART therapy. Dictated By: EFRAIN LEMOS DO NR/NTS Conf#: [id number] DID#: [id number] CC: WATSON VILLANUEVA MD; RAIN CARSON MD; EFRAIN LEMOS DO;*EndCC*
--- NOTE | 2019-03-04 13:19 | DS ---
Date/Time of Note Date/Time of Note DATE: 03/04/19 TIME: 13:19 Discharge Summary Admission/Discharge Info Admit Date/Time Feb 27, 2019 at 12:49 Discharge Date/Time Patient Condition: Stable Hospital Course Patient is a male with a past medical history significant for HIV on therapy, BPH, arrhythmia, hypertension who presents to [facility] for fall with questionable dysarthria. Patient had CVA work-up with neurology on board, patient has slurred speech however continued to improve daily and patient likely suffered from toxic metabolic encephalopathy secondary to UTI. Patient also continued to improve, received multiple imaging including CT had an MRI which were negative for acute CVA. After discussing with neurology it was likely that the patient had encephalopathic changes secondary to urinary tract infection and renal failure. Patient's renal failure continues to improve on a daily basis which is also likely secondary from volume depletion and urinary tract infection. Of note patient's urinary tract infection will need to be treated with ceftriaxone or appropriate oral antibiotic for 9 more days. As patient is an inpatient rehab I recommend continuing with IV ceftriaxone until renal function improves significantly enough for an oral antibiotic would be appropriate. Patient is doing well and feels nearly back to baseline. Of important notice, patient does have a history of arrhythmia and was on amiodarone and metoprolol that was held on admission due to sepsis secondary to UTI and blood pressure. Currently blood pressure is on the normal to low side however I recommend restarting amiodarone and metoprolol slowly while and inpatient rehab, with close monitoring of blood pressure. Discharge diagnosis Acute toxic encephalopathy, resolving Slurred speech, resolved Debility, resolving Acute renal failure, resolving Electrolyte derangement, resolving HIV, on therapy, CD4 count safe Urinary tract infection BPH Sore throat Arrhythmia Hypertension, Home Meds Reported Medications Amiodarone Hcl* (Amiodarone Hcl*) 200 Mg Tablet, 200 MG PO DAILY, #30 TAB 02/27/19 Raltegravir Potassium* (Isentress*) 400 Mg Tablet, 400 MG PO BID, TAB 02/27/19 Abacavir Sulfate/Lamivudine (Abacavir-Lamivudine 600-300 mg) 1 Each Tablet, 1 TAB PO DAILY 02/27/19 Dutasteride* (Avodart*) 0.5 Mg Capsule, 0.5 MG PO DAILY, CAP 02/27/19 Quetiapine Fumarate* (Quetiapine Fumarate*) 25 Mg Tablet, 25 MG PO BID, TAB 02/27/19 Pravastatin Sodium* (Pravastatin Sodium*) 10 Mg Tablet, 10 MG PO HS, TAB 02/27/19 Doxazosin Mesylate* (Doxazosin Mesylate*) 4 Mg Tablet, 4 MG PO HS, TAB 02/27/19 Metoprolol Tartrate* (Lopressor*) 50 Mg Tab, 50 MG PO BID, #60 TAB 02/27/19 Divalproex Sodium* (Depakote ER*) 500 Mg Tabsr, 500 MG PO BID, #30 TAB.SA 02/27/19 Discontinued Reported Medications [metoprolol] No Conflict Check 04/22/13 [amiodarone] No Conflict Check 04/22/13 Primary Care Provider Not On Staff Doctor Time spent on discharge: > 30 minutes Pending Labs Laboratory Tests Test 03/04/19 05:22 Sodium Level 142 mmol/L (135-144) Potassium Level 4.0 mmol/L (3.5-5.1) Chloride Level 104 mmol/L (97-110) Carbon Dioxide Level 30 mmol/L (21-31) Anion Gap 8 (5-13) Blood Urea Nitrogen 30 mg/dl (7-20) Creatinine 2.24 mg/dl (0.61-1.24) Est Glomerular Filtrat Rate mL/min mL/min (>60) Glucose Level 107 mg/dl (70-220) Calcium Level 8.4 mg/dl (8.4-10.2) Phosphorus Level 4.1 mg/dl (2.5-4.9) Magnesium Level 1.6 mg/dl (1.7-2.5) WATSON VILLANUEVA Mar 04, 2019 13:19
--- NOTE | 2019-03-04 13:39 | CONS ---
Assessment/Plan Assessment/Plan Hospital Course (Demo Recall) No acute events. Patient is alert feels good, denies pain no fevers no nausea vomiting diarrhea Urine culture grew Proteus mirabilis resistant only to Macrobid Antimicrobials: Aniya Major Epzicom Microbiology: Urine culture growing Proteus mirabilis Physical examination: Well-nourished well-developed elderly man who is awake in no distress. Head atraumatic normocephalic neck is supple chest rise symmetrical breath sounds clear heart S1-S2 abdomen soft bowel sounds present ex tremities without cyanosis Assessment: 1. Systemic inflammatory response syndrome with resolving leukocytosis 2. Urinary tract infection 3. HIV disease, stable on therapy 4. Acute renal failure questionable on chronic kidney disease 5. History of BPH 6. Mental status change on admission, currently at baseline Plan: Patient remains stable, continue present care and antibiotics, follow nephrology recommendations, ok downgrade antibiotics to PO Cipro upon dc to complete 10 days Consultation Date/Type/Reason Admit Date/Time Feb 27, 2019 at 12:49 Initial Consult Date Type of Consult id Requesting Provider: WATSON VILLANUEVA Date/Time of Note DATE: 03/04/19 TIME: 13:37 Exam/Review of Systems Exam Vitals Vital Signs Date Temp Pulse Resp B/P (MAP) Pulse Ox O2 O2 Flow FiO2 Time Delivery Rate 03/04/19 98.3 84 18 119/74 92 Room Air 07:38 (89) Intake and Output 03/03/19 03/03/19 03/04/19 1515:00 23:00 07:00 IntakeIntake Total 1760 ml 1050 ml OutputOutput Total 475 ml 850 ml 500 ml BalanceBalance 1285 ml 200 ml -500 ml Results Result Diagram: 03/03/19 0455 03/04/19 0522 Results 24hrs Laboratory Tests Test 03/04/19 05:22 Sodium Level 142 Potassium Level 4.0 Chloride Level 104 Carbon Dioxide Level 30 Anion Gap 8 Blood Urea Nitrogen 30 H Creatinine 2.24 H Est Glomerular Filtrat Rate mL/min Glucose Level 107 Calcium Level 8.4 Phosphorus Level 4.1 Magnesium Level 1.6 L Medications Medication Current Medications Divalproex Sodium (Depakote Er) 500 mg BID PO Last administered on 03/04/19at 09:18; Admin Dose 500 MG; Start 02/27/19 at 21:00 Doxazosin Mesylate (Cardura) 4 mg HS PO Last administered on 03/03/19 20:26; Admin Dose 4 MG; Start 02/27/19 at 21:00 Dutasteride (Avodart) 0.5 mg DAILY PO Last administered on 03/04/19 09:17; Admin Dose 0.5 MG; Start 02/28/19 at 09:00 Atorvastatin Calcium (Lipitor) 10 mg DAILY@21 PO Last administered on 03/03/19 20:24; Admin Dose 10 MG; Start 02/27/19 at 21:00 IV Flush (NS 3 ml) 3 ml PER PROTOCOL IV ; Start 02/27/19 at 14:00 Ondansetron HCl (Zofran Inj) 4 mg Q6H PRN IV NAUSEA/VOMITING; Start 02/27/19 at 14:00 Aspirin (Aspirin) 81 mg DAILY PO Last administered on 03/04/19 09:17; Admin Dose 81 MG; Start 02/28/19 at 09:00 Acetaminophen (Tylenol Tab) 650 mg Q6H PRN PO .PAIN 1-3 OR TEMP; Start 02/27/19 at 14:00 Docusate Sodium (Colace) 100 mg Q12H PRN PO .CONSTIPATION Last administered on 02/28/19 08:39; Admin Dose 100 MG; Start 02/27/19 at 14:00 Magnesium Hydroxide (Milk Of Mag) 30 ml DAILY PRN PO .CONSTIPATION Last administered on 03/03/19 12:00; Admin Dose 30 ML; Start 02/27/19 at 14:00 Tramadol HCl (Ultram) 50 mg Q6H PRN PO MODERATE PAIN LEVEL 4-6; Start 02/27/19 at 15:00 Abacavir/ Lamivudine (Epzicom) 1 tab DAILY PO Last administered on 03/04/19 09:17; Admin Dose 1 TAB; Start 02/27/19 at 16:00 Miscellaneous Medication (Isentress) 400 mg BID PO Last administered on 03/04/19 09:18; Admin Dose 400 MG; Start 02/27/19 at 16:00 Phenol (Cepastat Lozenge) 1 lozenge Q1H PRN MT sore throat Last administered on 03/02/19 14:39; Admin Dose 1 LOZENGE; Start 02/27/19 at 15:30 Quetiapine Fumarate (Seroquel) 50 mg QHS PO Last administered on 03/03/19at 20:25; Admin Dose 50 MG; Start 03/01/19 at 21:00 Ceftriaxone Sodium 50 ml @ 100 mls/hr Q24H IVPB Last administered on 03/03/19at 17:59; Admin Dose 100 MLS/HR; Start 03/01/19 at 16:30 Famotidine (Pepcid) 20 mg DAILY PO Last administered on 03/04/19at 09:18; Admin Dose 20 MG; Start 03/02/19 at 09:00 TYESHA MCKEE NP Mar 04, 2019 13:39
[2019-03-04 14:03] VITALS: BP 105/64; PULSE 81; RESP 18
[2019-03-04] MEDS: CEFTRIAXONE 1 GM/50 ML (PMX) 50 ML IVPB SCH (16:34)
[2019-03-04 20:00] VITALS: BP 139/87; PULSE 85; RESP 18
[2019-03-04] MEDS: DOXAZOSIN 4 MG TAB PO SCH (20:41)
[2019-03-04] MEDS: QUETIAPINE 25 MG TAB PO SCH (20:41)
[2019-03-04] MEDS: ATORVASTATIN 10 MG TAB PO SCH (20:41)
[2019-03-04] MEDS ORDERED: QUET50TA PO (23:15)
[2019-03-04] MEDS ORDERED: FAMO20TA18 PO (23:15)
[2019-03-04] MEDS ORDERED: CEPASTAT MT (23:15)
[2019-03-04] MEDS ORDERED: ACET-2047 PO (23:15)
[2019-03-04] MEDS ORDERED: ATOR10TA65 PO (23:15)
[2019-03-04] MEDS ORDERED: TRAM50TA2 PO (23:15)
[2019-03-04] MEDS ORDERED: CEFT1FRO2 IV (23:15)
[2019-03-04] MEDS ORDERED: MAGN400O19 PO (23:15)
[2019-03-04] MEDS ORDERED: DOCU-144 PO (23:15)
== END 2019-03-04 21:50 | DRG 689 ==
LOC: E/R 11:46 → TEL 12:49 → 2NE 03-02 16:59
PROVIDERS: ADMIT Internal Medicine; ATTEND Internal Medicine
DX: N13.6 Pyonephrosis (principal); G92 Toxic encephalopathy; R65.10 Systemic inflammatory response syndrome (SIRS) of non-infectious origin without acute organ dysfunction; E87.1 Hypo-osmolality and hyponatremia; N17.9 Acute kidney failure, unspecified; N18.9 Chronic kidney disease, unspecified; I12.9 Hypertensive chronic kidney disease with stage 1 through stage 4 chronic kidney disease, or unspecified chronic kidney disease; I25.10 Atherosclerotic heart disease of native coronary artery without angina pectoris; N40.0 Benign prostatic hyperplasia without lower urinary tract symptoms; R47.81 Slurred speech; J02.9 Acute pharyngitis, unspecified; F10.20 Alcohol dependence, uncomplicated; R29.810 Facial weakness; D63.8 Anemia in other chronic diseases classified elsewhere; E83.42 Hypomagnesemia; Z87.891 Personal history of nicotine dependence
CPT/HCPCS: 36415; 70450; 70551; 71045; 74176; 76775; 80048; 80053; 80061; 80307; 81001; 82550; 83036; 83735; 84100; 84155; 84300; 84484; 85025; 85610; 85730; 86360; 87086; 87536; 89190; 92610; 93005; 93306; 93880; 97110; 97116; 97162; 97165; 97530; 97535; J0696; J1335; J3475; J7030; J7042; J7120

== ENCOUNTER 2019-03-04 17:31 | Inpatient (IN) | payer MEDICARE, OTHER ==
[~2019-03-04] VITALS: Ht 180.3 cm; Wt 95.9 kg
[~2019-03-04 17:31] MED LIST changes: +ABAC1TAB14 PO; +AMIO200T4 PO; +DIVA-75 PO; +DOXA4TAB3 PO; +DUTA0.5C PO; +ISEN400 PO; +METO-429 PO; +PRAV10TA43 PO; +QUET25TA33 PO; -amiodarone; -metoprolol
[2019-03-04 22:04] VITALS: BP 150/86; PULSE 93; RESP 18
[2019-03-04 22:15] VITALS: Ht 180.3 cm; Wt 95.9 kg
[2019-03-04] MEDS ORDERED: FAMO20TA18 PO (23:15)
[2019-03-04] MEDS ORDERED: MAGN400O19 PO (23:15)
[2019-03-04] MEDS ORDERED: ATOR10TA65 PO (23:15)
[2019-03-04] MEDS ORDERED: TRAM50TA2 PO (23:15)
[2019-03-04] MEDS ORDERED: DOCU-144 PO (23:15)
[2019-03-04] MEDS ORDERED: QUET50TA PO (23:15)
[2019-03-04] MEDS ORDERED: CEPASTAT MT (23:15)
[2019-03-04] MEDS ORDERED: ACET-2047 PO (23:15)
[2019-03-04] MEDS ORDERED: CEFT1FRO2 IV (23:15)
[2019-03-04] MEDS ORDERED: ONDANSETRON 4 MG INJ IV PRN (23:30)
[2019-03-05] MEDS ORDERED: MAGNESIUM HYDROXIDE 30ML CUP PO PRN
[2019-03-05] MEDS ORDERED: BISACODYL 10 MG SUPP PR PRN
[2019-03-05] MEDS ORDERED: DOCUSATE SODIUM 100 MG CAP PO PRN
[2019-03-05] MEDS ORDERED: LACTULOSE 30ML CUP PO PRN
[2019-03-05] MEDS ORDERED: traMADol 50 MG TAB PO PRN
[2019-03-05] MEDS ORDERED: CEPASTAT LOZENGE MT PRN
[2019-03-05] MEDS ORDERED: NACL 0.9% 3 ML SYG IV SCH (01:30)
[2019-03-05 02:48] VITALS: BP 107/70; PULSE 95; RESP 18
[2019-03-05 07:30] VITALS: BP 113/68; PULSE 100; RESP 18
[2019-03-05] MEDS ORDERED: CEFTRIAXONE 1 GM/50 ML (PMX) 50 ML IVPB SCH (09:00)
[2019-03-05] MEDS: RALTEGRAVIR 400 MG TAB PO SCH ×2 (09:52→20:58)
[2019-03-05] MEDS: DUTASTERIDE 0.5 MG CAP PO SCH (09:53)
[2019-03-05] MEDS: FAMOTIDINE 20 MG TAB PO SCH (09:53)
--- NOTE | 2019-03-05 10:00 | PN ---
DATE: 03/05/2019 SUBJECTIVE: The patient is stable. No events overnight. OBJECTIVE: VITAL SIGNS: Blood pressure is 107/70, respirations 18, pulse 95, temperature 98.4. HEENT: Head is normocephalic. NECK: Supple. HEART: Regular rate. LUNGS: Show diminished breath sounds at the base. ABDOMEN: Soft, nontender to palpation. No rebound or guarding. EXTREMITIES: Negative for clubbing, cyanosis, no edema. DERMATOLOGIC: No rashes. MUSCULOSKELETAL: No joint effusion. NEUROLOGIC: No change in exam. MEDICATIONS: Reviewed. LABORATORY DATA: Reviewed. ASSESSMENT AND PLAN: 1. Nonoliguric acute kidney injury on top of chronic kidney disease with previous baseline creatinin e of 1.3 to 1.4 mg/dL. Etiology of acute kidney injury is secondary to volume depletion. Renal func tion has slowly been improving. Continue current treatment plan, continue supportive care and renall y dose all medications. 2. Hypomagnesemia. Continue to monitor and replete. 3. Anemia. Monitor hemoglobin and hematocrit levels. 4. Mineral bone disorder. Monitor calcium and phosphorus levels. 5. Hypertension. Continue current blood pressure regimen. 6. Urinary tract infection. The patient is completing antibiotic course. 7. Benign prostatic hypertrophy. Continue medical management. 8. Status post TIA. 9. HIV. Continue HAART therapy. Dictated By: EFRAIN LEMOS DO NR/NTS Conf#: [id number] DID#: [id number] CC: PADMA VALDEZ MD; MAMTA CHILDS MD;*End*
--- NOTE | 2019-03-05 11:52 | CONS ---
Assessment/Plan Assessment/Plan Hospital Course (Demo Recall) No acute events. Tx to acute rehab, looks comfortable, no fevers Urine culture grew Proteus mirabilis resistant only to Macrobid Antimicrobials: Aniya Major Epzicom Microbiology: Urine culture growing Proteus mirabilis Physical examination: Well-nourished well-developed elderly man who is awake in no distress. Head atraumatic normocephalic neck is supple chest rise symmetrical breath sounds clear heart S1-S2 abdomen soft bowel sounds present extremities without cyanosis Assessment: 1. S/p systemic inflammatory response syndrome 2. Urinary tract infection 3. HIV disease, stable on therapy 4. Acute renal failure questionable on chronic kidney disease 5. History of BPH 6. S/p encephalopathy Plan: Stable, continue abx for 3 more days Consultation Date/Type/Reason Admit Date/Time Mar 04, 2019 at 22:00 Initial Consult Date Type of Consult id Date/Time of Note DATE: 03/05/19 TIME: 11:51 Exam/Review of Systems Exam Vitals Vital Signs Date Temp Pulse Resp B/P (MAP) Pulse Ox O2 O2 Flow FiO2 Time Delivery Rate 03/05/19 97.6 100 18 113/68 91 Room Air 07:30 (83) Intake and Output 03/04/19 03/04/19 03/05/19 1515:00 23:00 07:00 IntakeIntake Total 600 ml OutputOutput Total 2400 ml BalanceBalance -1800 ml Results Result Diagram: 03/05/19 0644 03/05/19 0644 Results 24hrs Laboratory Tests Test 03/04/19 21:50 03/05/19 06:44 Urine Color STRAW Urine Clarity CLEAR Urine pH 7.0 Urine Specific [place] 1.005 Urine Ketones NEGATIVE Urine Nitrite NEGATIVE Urine Bilirubin NEGATIVE Urine Urobilinogen NEGATIVE Urine Leukocyte Esterase TRACE A Urine Microscopic RBC 6 H Urine Microscopic WBC 9 H Urine Bacteria FEW A Urine Hemoglobin 3+ H Urine Glucose NEGATIVE Urine Total Protein NEGATIVE White Blood Count 14.0 H Red Blood Count 2.87 L Hemoglobin 9.1 L Hematocrit 27.1 L Mean Corpuscular Volume 94.4 Mean Corpuscular Hemoglobin 31.7 Mean Corpuscular Hemoglobin Concent 33.6 Red Cell Distribution Width 15.6 H Platelet Count 348 Mean Platelet Volume 9.2 Immature Granulocytes % 1.800 H Neutrophils % 76.5 Lymphocytes % 14.1 L Monocytes % 6.7 Eosinophils % 0.7 Basophils % 0.2 Nucleated Red Blood Cells % 0.0 Immature Granulocytes # 0.250 H Neutrophils # 10.7 H Lymphocytes # 2.0 Monocytes # 0.9 Eosinophils # 0.1 Basophils # 0.0 Nucleated Red Blood Cells # 0.0 Sodium Level 139 Potassium Level 4.2 Chloride Level 104 Carbon Dioxide Level 30 Anion Gap 5 Blood Urea Nitrogen 28 H Creatinine 2.25 H Est Glomerular Filtrat Rate mL/min Glucose Level 104 Calcium Level 8.1 L Total Bilirubin 0.3 Direct Bilirubin 0.00 Indirect Bilirubin 0.3 Aspartate Amino Transf (AST/SGOT) 40 Alanine Aminotransferase (ALT/SGPT) 39 Alkaline Phosphatase 82 Total Protein 6.5 Albumin 2.6 L Globulin 3.90 H Albumin/Globulin Ratio 0.66 Medications Medication Current Medications Abacavir/ Lamivudine (Epzicom) 1 tab DAILY PO ; Start 03/05/19 at 09:00 Divalproex Sodium (Depakote Er) 500 mg BID PO ; Start 03/05/19 at 09:00 Doxazosin Mesylate (Cardura) 4 mg HS PO ; Start 03/05/19 at 21:00 Dutasteride (Avodart) 0.5 mg DAILY PO Last administered on 03/05/19at 09:53; Admin Dose 0.5 MG; Start 03/05/19 at 09:00 Miscellaneous Medication (Isentress) 400 mg BID PO Last administered on 03/05/19at 09:52; Admin Dose 400 MG; Start 03/05/19 at 09:00 Ondansetron HCl (Zofran Inj) 4 mg Q4H PRN IV NAUSEA AND/OR VOMITING; Start 03/04/19 at 23:30 Acetaminophen (Tylenol Tab) 650 mg Q6H PRN PO MILD PAIN(1-3)OR ELEVATED TEMP; Start 03/05/19 at 00:00 Atorvastatin Calcium (Lipitor) 10 mg HS PO ; Start 03/05/19 at 21:00 Docusate Sodium (Colace) 100 mg BID PRN PO CONSTIPATION; Start 03/05/19 at 00:00 Famotidine (Pepcid) 20 mg DAILY PO Last administered on 03/05/19at 09:53; Admin Dose 20 MG; Start 03/05/19 at 09:00 Magnesium Hydroxide (Milk Of Mag) 30 ml DAILY PRN PO CONSTIPATION; Start 03/05/19 at 00:00 Phenol (Cepastat Lozenge) 1 lozenge Q1H PRN MT SORE THROAT; Start 03/05/19 at 00:00 Quetiapine Fumarate (Seroquel) 50 mg HS PO ; Start 03/05/19 at 21:00 Tramadol HCl (Ultram) 50 mg Q6H PRN PO MODERATE PAIN LEVEL 4-6; Start 03/05/19 at 00:00 Senna (Senokot) 1 tab HS PO ; Start 03/05/19 at 21:00 Lactulose (Enulose) 20 gm DAILY PRN PO CONSTIPATION; Start 03/05/19 at 00:00 Bisacodyl (Dulcolax Supp) [address] CONSTIPATION; Start 03/05/19 at 00:00 IV Flush (NS 3 ml) 3 ml Q8H and PRN adm IV ; Start 03/05/19 at 01:30 Ceftriaxone Sodium 50 ml @ 100 mls/hr Q24H IVPB ; Start 03/05/19 at 16:30 TYESHA MCKEE NP Mar 05, 2019 11:52
[2019-03-05] MEDS: DIVALPROEX (ER) 500 MG TAB PO SCH ×2 (13:11→20:57)
[2019-03-05] MEDS: ABACAVIR/LAMIVUDINE TAB PO SCH (13:11)
[2019-03-05 14:00] VITALS: BP 99/64; PULSE 104; RESP 20
--- NOTE | 2019-03-05 14:45 | HP ---
Date/Time of Note Date/Time of Note DATE: 03/05/19 TIME: 14:27 Assessment/Plan VTE Prophylaxis Risk score (from Nsg)>0 risk: 6 SCD applied (from Ns): Yes Pharmacological prophylaxis: NA/contraindicated Pharm contraindication: low risk/ambulating Lines/Catheters IV Catheter Type (from [facility]): Saline Lock Assessment/Plan Hospital Course SUBJECTIVE: Lying in bed comfortably. According to physical therapy, patient had an episode of heart rate up to 134 with therapy session this morning. Patient denied any palpitation, chest pain or other discomfort. OBJECTIVE: Vital signs-see below PHYSICAL EXAM: Constitutional: Adequately built,not in acute distress. HEENT: Head atraumatic and normocephalic. Eyes: Extraocular muscles intact. Anicteric sclerae. Pupils equal bilaterally, reactive to light. NECK: Supple without lymph node. CHEST: Clear and good breath sounds equally. No wheezing. No rhonchi. HEART: S1, S2. Regular rate and rhythm. ABDOMEN: Soft/non tender with no rebound tenderness. Bowel sounds were present. EXTREMITIES: No cyanosis, clubbing or edema. NEUROLOGIC:+Mild dysarthria. Alert and oriented x3. No focal deficit. No sensory deficit. PSYCHOSOCIAL: No signs of depression. INTEGUMENTARY: No open wounds. ASSESSMENT AND PLAN Dysarthria/gait disturbance -Questionable encephalopathy in HIV complicated by UTI -s/p neurology work-up. No acute focal TOWER HAND etiologies. -No LP studies recommended by neuro. Will get a WNV serology. -Dysarthria persists-Repeat MRI -Continue PT/ST/OT Acute kidney injury 2/2 volume depletion on CKD with baseline creatinine 1.3-1. 4. -Being followed by director of direct marketing. Paroxysmal atrial fibrillation. -Patient had a heart rate up to 130 this morning with physical therapy. Resume BB at lower dose w/BP parameters - I will request cardiology to follow patient. HIV -on HAART UTI -ABX per ID BPH -Continue Cardura History of arrhythmia -Monitor closely Hypertension -Stable. Dyslipidemia -On statin Anxiety/sleep disorders -Continue seroquel DVT prophylaxis: SCDs Patient is medically stable for starting physical therapy in the unit. Approximately 60 m spent on this history and physical. Patient was seen in collaboration with Dr. Martinez. Result Diagram: 03/05/19 0644 03/05/19 0644 Results 24hrs Laboratory Tests Test 03/04/19 21:50 03/05/19 06:44 Urine Color STRAW Urine Clarity CLEAR Urine pH 7.0 Urine Specific [place] 1.005 Urine Ketones NEGATIVE Urine Nitrite NEGATIVE Urine Bilirubin NEGATIVE Urine Urobilinogen NEGATIVE Urine Leukocyte Esterase TRACE A Urine Microscopic RBC 6 H Urine Microscopic WBC 9 H Urine Bacteria FEW A Urine Hemoglobin 3+ H Urine Glucose NEGATIVE Urine Total Protein NEGATIVE White Blood Count 14.0 H Red Blood Count 2.87 L Hemoglobin 9.1 L Hematocrit 27.1 L Mean Corpuscular Volume 94.4 Mean Corpuscular Hemoglobin 31.7 Mean Corpuscular Hemoglobin Concent 33.6 Red Cell Distribution Width 15.6 H Platelet Count 348 Mean Platelet Volume 9.2 Immature Granulocytes % 1.800 H Neutrophils % 76.5 Lymphocytes % 14.1 L Monocytes % 6.7 Eosinophils % 0.7 Basophils % 0.2 Nucleated Red Blood Cells % 0.0 Immature Granulocytes # 0.250 H Neutrophils # 10.7 H Lymphocytes # 2.0 Monocytes # 0.9 Eosinophils # 0.1 Basophils # 0.0 Nucleated Red Blood Cells # 0.0 Sodium Level 139 Potassium Level 4.2 Chloride Level 104 Carbon Dioxide Level 30 Anion Gap 5 Blood Urea Nitrogen 28 H Creatinine 2.25 H Est Glomerular Filtrat Rate mL/min Glucose Level 104 Calcium Level 8.1 L Total Bilirubin 0.3 Direct Bilirubin 0.00 Indirect Bilirubin 0.3 Aspartate Amino Transf (AST/SGOT) 40 Alanine Aminotransferase (ALT/SGPT) 39 Alkaline Phosphatase 82 Total Protein 6.5 Albumin 2.6 L Globulin 3.90 H Albumin/Globulin Ratio 0.66 HPI/ROS Admit Date/Time Admit Date/Time Mar 04, 2019 at 22:00 Hx of Present Illness This is a 73-year-old male with a past medical history of arrhythmias, hypertension, HIV on HAART, BPH, paroxysmal atrial fibrillation, was admitted at [facility] on 02/27/2019 with dysarthria and gait imbalance followed by a fall. Patient had extensive neurology work-up unrevealing for stroke or acute focal brain process. Patient was noted with a urinary tract infection with acute renal failure and electrolyte derangement which could be contributing to his symptoms per neurologist. There was no further need for LP studies per neurologist. Patient was treated with appropriate antimicrobials and was followed by infectious disease team. Patient was then evaluated by physical therapist who recommended further rehabilitation at acute rehabilitation unit and patient was then accepted on 03/05/2019 to ARU. At my encounter with the patient, he denied chest pain, palpitation, shortness of breath, nausea, vomiting, abdominal pain, loss of consciousness, dizziness, headache, vision changes, numbness, tingling or other constitutional symptoms. Patient continued to have mild degree of dysarthria. Labs showed WBC 14,000, hemoglobin 9.1, hematocrit 27.1, BUN 28, creatinine 2.25. UA positive for leukocyte esterase, WBCs and few bacteria. ROS A 12 point review of system was assessed and is negative other than what is mentioned in the HPI PMH/Family/Social Past Medical History See HPI Medications Current Medications Abacavir/ Lamivudine (Epzicom) 1 tab DAILY PO Last administered on 03/05/19at 13:11; Admin Dose 1 TAB; Start 03/05/19 at 09:00 Divalproex Sodium (Depakote Er) 500 mg BID PO Last administered on 03/05/19at 13:11; Admin Dose 500 MG; Start 03/05/19 at 09:00 Doxazosin Mesylate (Cardura) 4 mg HS PO ; Start 03/05/19 at 21:00 Dutasteride (Avodart) 0.5 mg DAILY PO Last administered on 03/05/19at 09:53; Admin Dose 0.5 MG; Start 03/05/19 at 09:00 Miscellaneous Medication (Isentress) 400 mg BID PO Last administered on 03/05/19at 09:52; Admin Dose 400 MG; Start 03/05/19 at 09:00 Ondansetron HCl (Zofran Inj) 4 mg Q4H PRN IV NAUSEA AND/OR VOMITING; Start 03/04/19 at 23:30 Acetaminophen (Tylenol Tab) 650 mg Q6H PRN PO MILD PAIN(1-3)OR ELEVATED TEMP; Start 03/05/19 at 00:00 Atorvastatin Calcium (Lipitor) 10 mg HS PO ; Start 03/05/19 at 21:00 Docusate Sodium (Colace) 100 mg BID PRN PO CONSTIPATION; Start 03/05/19 at 00:00 Famotidine (Pepcid) 20 mg DAILY PO Last administered on 03/05/19at 09:53; Admin Dose 20 MG; Start 03/05/19 at 09:00 Magnesium Hydroxide (Milk Of Mag) 30 ml DAILY PRN PO CONSTIPATION; Start 03/05/19 at 00:00 Phenol (Cepastat Lozenge) 1 lozenge Q1H PRN MT SORE THROAT; Start 03/05/19 at 00:00 Quetiapine Fumarate (Seroquel) 50 mg HS PO ; Start 03/05/19 at 21:00 Tramadol HCl (Ultram) 50 mg Q6H PRN PO MODERATE PAIN LEVEL 4-6; Start 03/05/19 at 00:00 Senna (Senokot) 1 tab HS PO ; Start 03/05/19 at 21:00 Lactulose (Enulose) 20 gm DAILY PRN PO CONSTIPATION; Start 03/05/19 at 00:00 Bisacodyl (Dulcolax Supp) 10 mg DAILY PRN [place] CONSTIPATION; Start 03/05/19 at 00:00 IV Flush (NS 3 ml) 3 ml Q8H and PRN adm IV ; Start 03/05/19 at 01:30 Ceftriaxone Sodium 50 ml @ 100 mls/hr Q24H IVPB ; Start 03/05/19 at 16:30 Coded Allergies: No Known Allergy (Unverified , 02/27/19) Past Surgical History See HPI Past Surgical Hx: other Family History Significant Family History: no pertinent family hx Social History Denied history of alcohol, smoking or illicit drug use Smoking Status: Never smoker Exam/Review of Systems Vital Signs Vitals Vital Signs Date Temp Pulse Resp B/P (MAP) Pulse Ox O2 O2 Flow FiO2 Time Delivery Rate 03/05/19 97.6 100 18 113/68 91 Room Air 07:30 (83) Intake and Output 03/04/19 03/04/19 03/05/19 1515:00 23:00 07:00 IntakeIntake Total 600 ml OutputOutput Total 2400 ml BalanceBalance -1800 ml AGNES LAMA NP Mar 05, 2019 14:40
[2019-03-05] MEDS: CEFTRIAXONE 1 GM/50 ML (PMX) 50 ML IVPB SCH (15:55)
--- NOTE | 2019-03-05 18:20 | CONS ---
Assessment/Plan Assessment/Plan Hospital Course (Demo Recall) 1. S/p systemic inflammatory response syndrome 2. Urinary tract infection 3. HIV disease, stable on therapy 4. Acute renal failure questionable on chronic kidney disease 5. History of BPH 6. S/p encephalopathy 7. aflutter on EKG Pt with elevated heart rates secondary to aflutter. Betablocker restarted continue as toleraed If no contraindication would add anticoagulation consider Eliquis 2.5mg BID Consultation Date/Type/Reason Admit Date/Time Mar 04, 2019 at 22:00 Type of Consult Cardiology Date/Time of Note DATE: 03/05/19 TIME: 18:15 Hx of Present Illness Pt transferred from [facility] after admission for UTI and encephalopathy Recovering however asked to consult reagrding managment of arrhythmia. Was on AMiodaorne and beta rommel in hospital which were held alert no CP no SOB Past Medical History Home Meds Reported Medications Tramadol HCl (Tramadol HCl) 50 Mg Tablet, 50 MG PO Q6 PRN for PAIN 03/04/19 Quetiapine Fumarate* (Seroquel*) 50 Mg Tablet, 50 MG PO HS 03/04/19 Throat Lozenges* (Cepastat*) 9 Griselda Lozenge, 1 LOZENGE MT Q1H PRN for SORE THROAT 03/04/19 Magnesium Hydroxide* (Milk Of Magnesia*) 400 Mg/5 Ml Oral.susp, 30 ML PO DAILY PRN for GASTROINTESTINAL UPSET 03/04/19 Famotidine* (Famotidine*) 20 Mg Tablet, 20 MG PO DAILY 03/04/19 Docusate Sodium* (Colace*) 100 Mg Capsule, 100 MG PO DAILY PRN for CONSTIPATION 03/04/19 Ceftriaxone Na/Dextrose,Iso (Ceftriaxone 1 gm Piggyback) 1 Gm/50 Ml Froz.piggy, 1 GM IV DAILY 03/04/19 Atorvastatin Calcium (Atorvastatin Calcium) 10 Mg Tablet, 10 MG PO QHS 03/04/19 Acetaminophen* (Acetaminophen*) 650 Mg Tablet, 650 MG PO Q6H PRN for PAIN AND OR ELEVATED TEMP 03/04/19 Amiodarone Hcl* (Amiodarone Hcl*) 200 Mg Tablet, 200 MG PO DAILY, #30 TAB 02/27/19 Raltegravir Potassium* (Isentress*) 400 Mg Tablet, 400 MG PO BID, TAB 02/27/19 Abacavir Sulfate/Lamivudine (Abacavir-Lamivudine 600-300 mg) 1 Each Tablet, 1 TAB PO DAILY 02/27/19 Dutasteride* (Avodart*) 0.5 Mg Capsule, 0.5 MG PO DAILY, CAP 02/27/19 Quetiapine Fumarate* (Quetiapine Fumarate*) 25 Mg Tablet, 25 MG PO BID, TAB 02/27/19 Pravastatin Sodium* (Pravastatin Sodium*) 10 Mg Tablet, 10 MG PO HS, TAB 02/27/19 Doxazosin Mesylate* (Doxazosin Mesylate*) 4 Mg Tablet, 4 MG PO HS, TAB 02/27/19 Metoprolol Tartrate* (Lopressor*) 50 Mg Tab, 50 MG PO BID, #60 TAB 02/27/19 Divalproex Sodium* (Depakote ER*) 500 Mg Tabsr, 500 MG PO BID, #30 TAB.SA 02/27/19 Discontinued Reported Medications [metoprolol] No Conflict Check 04/22/13 [amiodarone] No Conflict Check 04/22/13 Medications Current Medications Abacavir/ Lamivudine (Epzicom) 1 tab DAILY PO Last administered on 03/05/19at 13:11; Admin Dose 1 TAB; Start 03/05/19 at 09:00 Divalproex Sodium (Depakote Er) 500 mg BID PO Last administered on 03/05/19at 13:11; Admin Dose 500 MG; Start 03/05/19 at 09:00 Doxazosin Mesylate (Cardura) 4 mg HS PO ; Start 03/05/19 at 21:00 Dutasteride (Avodart) 0.5 mg DAILY PO Last administered on 03/05/19at 09:53; Admin Dose 0.5 MG; Start 03/05/19 at 09:00 Miscellaneous Medication (Isentress) 400 mg BID PO Last administered on 03/05/19at 09:52; Admin Dose 400 MG; Start 03/05/19 at 09:00 Ondansetron HCl (Zofran Inj) 4 mg Q4H PRN IV NAUSEA AND/OR VOMITING; Start 03/04/19 at 23:30 Acetaminophen (Tylenol Tab) 650 mg Q6H PRN PO MILD PAIN(1-3)OR ELEVATED TEMP; Start 03/05/19 at 00:00 Atorvastatin Calcium (Lipitor) 10 mg HS PO ; Start 03/05/19 at 21:00 Docusate Sodium (Colace) 100 mg BID PRN PO CONSTIPATION; Start 03/05/19 at 00:00 Famotidine (Pepcid) 20 mg DAILY PO Last administered on 03/05/19at 09:53; Admin Dose 20 MG; Start 03/05/19 at 09:00 Magnesium Hydroxide (Milk Of Mag) 30 ml DAILY PRN PO CONSTIPATION; Start 03/05/19 at 00:00 Phenol (Cepastat Lozenge) 1 lozenge Q1H PRN MT SORE THROAT; Start 03/05/19 at 00:00 Quetiapine Fumarate (Seroquel) 50 mg HS PO ; Start 03/05/19 at 21:00 Tramadol HCl (Ultram) 50 mg Q6H PRN PO MODERATE PAIN LEVEL 4-6; Start 03/05/19 at 00:00 Senna (Senokot) 1 tab HS PO ; Start 03/05/19 at 21:00 Lactulose (Enulose) 20 gm DAILY PRN PO CONSTIPATION; Start 03/05/19 at 00:00 Bisacodyl (Dulcolax Supp) 10 mg DAILY PRN [place] CONSTIPATION; Start 03/05/19 at 00:00 IV Flush (NS 3 ml) 3 ml Q8H and PRN adm IV ; Start 03/05/19 at 01:30 Ceftriaxone Sodium 50 ml @ 100 mls/hr Q24H IVPB Last administered on 03/05/19at 15:55; Admin Dose 100 MLS/HR; Start 03/05/19 at 16:30 Metoprolol Tartrate (Lopressor) 25 mg DAILY PO ; Start 03/06/19 at 09:00 Allergies: Coded Allergies: No Known Allergy (Unverified , 02/27/19) Past Surgical History Past Surgical Hx: other Social History Smoking Status: Never smoker Exam/Review of Systems Vital Signs Vitals Vital Signs Date Temp Pulse Resp B/P (MAP) Pulse Ox O2 O2 Flow FiO2 Time Delivery Rate 03/05/19 97.6 104 20 99/64 (76) 96 Room Air 14:00 Intake and Output 03/04/19 03/04/19 03/05/19 1515:00 23:00 07:00 IntakeIntake Total 600 ml OutputOutput Total 2400 ml BalanceBalance -1800 ml Exam Constitutional: alert, oriented Labs Result Diagram: 03/05/19 0644 03/05/19 0644 Results 24hrs Laboratory Tests Test 03/04/19 21:50 03/05/19 06:44 Urine Color STRAW Urine Clarity CLEAR Urine pH 7.0 Urine Specific [place] 1.005 Urine Ketones NEGATIVE Urine Nitrite NEGATIVE Urine Bilirubin NEGATIVE Urine Urobilinogen NEGATIVE Urine Leukocyte Esterase TRACE A Urine Microscopic RBC 6 H Urine Microscopic WBC 9 H Urine Bacteria FEW A Urine Hemoglobin 3+ H Urine Glucose NEGATIVE Urine Total Protein NEGATIVE White Blood Count 14.0 H Red Blood Count 2.87 L Hemoglobin 9.1 L Hematocrit 27.1 L Mean Corpuscular Volume 94.4 Mean Corpuscular Hemoglobin 31.7 Mean Corpuscular Hemoglobin Concent 33.6 Red Cell Distribution Width 15.6 H Platelet Count 348 Mean Platelet Volume 9.2 Immature Granulocytes % 1.800 H Neutrophils % 76.5 Lymphocytes % 14.1 L Monocytes % 6.7 Eosinophils % 0.7 Basophils % 0.2 Nucleated Red Blood Cells % 0.0 Immature Granulocytes # 0.250 H Neutrophils # 10.7 H Lymphocytes # 2.0 Monocytes # 0.9 Eosinophils # 0.1 Basophils # 0.0 Nucleated Red Blood Cells # 0.0 Sodium Level 139 Potassium Level 4.2 Chloride Level 104 Carbon Dioxide Level 30 Anion Gap 5 Blood Urea Nitrogen 28 H Creatinine 2.25 H Est Glomerular Filtrat Rate mL/min Glucose Level 104 Calcium Level 8.1 L Total Bilirubin 0.3 Direct Bilirubin 0.00 Indirect Bilirubin 0.3 Aspartate Amino Transf (AST/SGOT) 40 Alanine Aminotransferase (ALT/SGPT) 39 Alkaline Phosphatase 82 B-Type Natriuretic Peptide 3480 H Total Protein 6.5 Albumin 2.6 L Globulin 3.90 H Albumin/Globulin Ratio 0.66 Medications Medications Current Medications Abacavir/ Lamivudine (Epzicom) 1 tab DAILY PO Last administered on 03/05/19at 13:11; Admin Dose 1 TAB; Start 03/05/19 at 09:00 Divalproex Sodium (Depakote Er) 500 mg BID PO Last administered on 03/05/19at 13:11; Admin Dose 500 MG; Start 03/05/19 at 09:00 Doxazosin Mesylate (Cardura) 4 mg HS PO ; Start 03/05/19 at 21:00 Dutasteride (Avodart) 0.5 mg DAILY PO Last administered on 03/05/19at 09:53; Admin Dose 0.5 MG; Start 03/05/19 at 09:00 Miscellaneous Medication (Isentress) 400 mg BID PO Last administered on 03/05/19at 09:52; Admin Dose 400 MG; Start 03/05/19 at 09:00 Ondansetron HCl (Zofran Inj) 4 mg Q4H PRN IV NAUSEA AND/OR VOMITING; Start 03/04/19 at 23:30 Acetaminophen (Tylenol Tab) 650 mg Q6H PRN PO MILD PAIN(1-3)OR ELEVATED TEMP; Start 03/05/19 at 00:00 Atorvastatin Calcium (Lipitor) 10 mg HS PO ; Start 03/05/19 at 21:00 Docusate Sodium (Colace) 100 mg BID PRN PO CONSTIPATION; Start 03/05/19 at 00:00 Famotidine (Pepcid) 20 mg DAILY PO Last administered on 03/05/19at 09:53; Admin Dose 20 MG; Start 03/05/19 at 09:00 Magnesium Hydroxide (Milk Of Mag) 30 ml DAILY PRN PO CONSTIPATION; Start 03/05/19 at 00:00 Phenol (Cepastat Lozenge) 1 lozenge Q1H PRN MT SORE THROAT; Start 03/05/19 at 00:00 Quetiapine Fumarate (Seroquel) 50 mg HS PO ; Start 03/05/19 at 21:00 Tramadol HCl (Ultram) 50 mg Q6H PRN PO MODERATE PAIN LEVEL 4-6; Start 03/05/19 at 00:00 Senna (Senokot) 1 tab HS PO ; Start 03/05/19 at 21:00 Lactulose (Enulose) 20 gm DAILY PRN PO CONSTIPATION; Start 03/05/19 at 00:00 Bisacodyl (Dulcolax Supp) 10 mg DAILY PRN [place] CONSTIPATION; Start 03/05/19 at 00:00 IV Flush (NS 3 ml) 3 ml Q8H and PRN adm IV ; Start 03/05/19 at 01:30 Ceftriaxone Sodium 50 ml @ 100 mls/hr Q24H IVPB Last administered on 03/05/19at 15:55; Admin Dose 100 MLS/HR; Start 03/05/19 at 16:30 Metoprolol Tartrate (Lopressor) 25 mg DAILY PO ; Start 03/06/19 at 09:00 CHARMAINE TAN MD Mar 05, 2019 18:19
--- NOTE | 2019-03-05 19:24 | CONS ---
DATE OF ADMISSION: 03/04/2019 DATE OF CONSULTATION: 03/05/2019 TYPE OF CONSULTATION: Rehabilitation post-admission physician evaluation. REHABILITATION IMPAIRMENT CATEGORY: Toxic metabolic encephalopathy. ACTIVE COMORBIDITIES: 1. HIV positive. 2. Dysarthria. 3. BPH. 4. Urinary tract infection. 5. Hypertension. 6. Impairments in self-care and mobility and mild cognition. HISTORY OF PRESENT ILLNESS: The patient is a pleasant 73-year-old gentleman with a history of HIV, BPH, cardiac arrhythmia and hypertension, who was admitted with falls, dysarthria and urinary tract infection. Neurological workup included head CT which was negative for bleed and an MRI which was negative for acute CVA. The patient was presumed to have toxic metabolic encephalopathy. The patient's hospital course is also notable for acute renal failure. The patient was noted to have significant impairments in self-care, mobility and swallowing as compared to baseline and has been cleared to transfer to the rehabilitation unit for comprehensive interdisciplinary rehab care. FUNCTIONAL HISTORY: Prior to recent events, he was independent in self-care tasks and mobility. Currently, requires moderate to minimal assist for self- care and mobility tasks. I have reviewed the preadmission screen and the patient's current functional status is consistent with the preadmission screen. FAMILY AND SOCIAL HISTORY: The patient lives at home alone and hopes to return there upon discharge. PAST MEDICAL HISTORY: 1. HIV on HAART therapy. 2. BPH. 3. Hypertension. 4. Cardiac arrhythmia. CURRENT MEDICATIONS: 1. Avodart 0.5 mg p.o. daily. 2. Pepcid 20 mg p.o. daily. 3. Seroquel bedtime. 4. Isentress 400 mg p.o. b.i.d. 5. Ultram p.r.n. 6. Epzicom. 7. Lipitor 10 mg p.o. daily. 8. Depakote 500 mg p.o. b.i.d. 9. Doxazosin 4 mg p.o. at bedtime. ALLERGIES: NO KNOWN DRUG ALLERGIES. PHYSICAL EXAMINATION: VITAL SIGNS: He is afebrile with stable. HEENT: Extraocular motions are intact. Oropharynx is clear. NECK: Supple. LUNGS: Clear anteriorly. CARDIAC: S1, S2. ABDOMEN: Soft, nontender, positive bowel sounds. NEUROLOGIC: He is awake and alert. He will follow simple 1-step commands. He has notable dysarthria. He demonstrates some tongue deviation. He has antigravity strength in bilateral upper extremity and lower extremity. PLAN: The patient has been admitted for comprehensive interdisciplinary acute rehab and is anticipated to tolerate 3 hours of daily therapy in divided doses for at least 5/7 days a week. The treatment plan will include: 1. Physical therapy to focus on bed mobility, transfers and household ambulation with the goal of having patient reach a supervised to modified independent level. 2. Occupational therapy to focus on hygiene, grooming, dressing, bathing and toileting activities with the goal of having the patient reach a modified independent level. We will have both physical therapy, occupational therapy and rehabilitation nursing to focus on functional cognitive tasks in addition to monitoring dysphagia status with advancement of diet as tolerated. 3. Neuropsychology for full cognitive evaluation and oversight of cognitive program. Will have PT and OT work on functional cognitive tasks ESTIMATED LENGTH OF STAY: 7 days. DISPOSITION GOAL: Home. REHABILITATION BARRIER: Weakness. INTERVENTION FOR BARRIER: Interdisciplinary approach. I acknowledge that I performed a full physical examination on this patient within 24 hours of admission to the rehabilitation unit. I believe the patient is a good candidate for comprehensive interdisciplinary rehab care and is anticipated to make reasonable goals in a reasonable period of time as outlined above. Dictated By: MAMTA MARIA/VIKRAM Conf#: [id number] DID#: [id number] CC: PADMA VALDEZ MD; SRINIVAS PARKER DO;*EndCC* MTDD
[2019-03-05 20:00] VITALS: BP 122/75; PULSE 82; RESP 18
[2019-03-05] MEDS: QUETIAPINE 25 MG TAB PO SCH (20:58)
[2019-03-05] MEDS: SENNA TAB PO SCH (20:58)
[2019-03-05] MEDS: ATORVASTATIN 10 MG TAB PO SCH (20:58)
[2019-03-05] MEDS: DOXAZOSIN 4 MG TAB PO SCH (21:42)
[2019-03-05 21:43] VITALS: BP 120/73; PULSE 83
[2019-03-06 02:00] VITALS: BP 116/68; PULSE 88; RESP 18
[2019-03-06 07:30] VITALS: BP 114/71; PULSE 96; RESP 20
[2019-03-06] MEDS: DUTASTERIDE 0.5 MG CAP PO SCH (09:14)
[2019-03-06] MEDS: METOPROLOL 25 MG TAB PO SCH (09:14)
[2019-03-06] MEDS: FAMOTIDINE 20 MG TAB PO SCH (09:14)
[2019-03-06] MEDS: DIVALPROEX (ER) 500 MG TAB PO SCH ×2 (09:15→20:27)
[2019-03-06] MEDS: RALTEGRAVIR 400 MG TAB PO SCH ×2 (09:15→20:27)
[2019-03-06] MEDS: ABACAVIR/LAMIVUDINE TAB PO SCH (09:15)
[2019-03-06 09:17] VITALS: BP 110/66; PULSE 109
--- NOTE | 2019-03-06 09:41 | CONS ---
Assessment/Plan Assessment/Plan Assessment/Plan (Daily) 1. S/p systemic inflammatory response syndrome 2. Urinary tract infection 3. HIV disease, stable on therapy 4. Acute renal failure questionable on chronic kidney disease 5. History of BPH 6. S/p encephalopathy 7. aflutter on EKG Pt with elevated heart rates secondary to aflutter. Betablocker restarted continue as toleraed If no contraindication would add anticoagulation consider Eliquis 2.5mg BID Consultation Date/Type/Reason Admit Date/Time Mar 04, 2019 at 22:00 Initial Consult Date Type of Consult Cardiology Date/Time of Note DATE: 03/06/19 TIME: 09:41 24 HR Interval Summary Free Text/Dictation the aptient with palpitaions this am Exam/Review of Systems Vital Signs Vitals Vital Signs Date Temp Pulse Resp B/P (MAP) Pulse Ox O2 O2 Flow FiO2 Time Delivery Rate 03/06/19 109 110/66 09:17 (81) 03/06/19 98.5 20 92 Room Air 07:30 Intake and Output 03/05/19 03/05/19 03/06/19 1515:00 23:00 07:00 IntakeIntake Total 540 ml 890 ml 1350 ml OutputOutput Total 650 ml 460 ml 1590 ml BalanceBalance -110 ml 430 ml -240 ml Labs Result Diagram: 03/06/19 0616 03/06/19 0616 Results 24hrs Laboratory Tests Test 03/06/19 06:16 White Blood Count 11.8 H Red Blood Count 2.87 L Hemoglobin 9.2 L Hematocrit 27.9 L Mean Corpuscular Volume 97.2 Mean Corpuscular Hemoglobin 32.1 Mean Corpuscular Hemoglobin Concent 33.0 Red Cell Distribution Width 15.5 H Platelet Count 313 Mean Platelet Volume 9.7 Immature Granulocytes % 1.500 H Neutrophils % 70.5 Lymphocytes % 20.4 Monocytes % 6.8 Eosinophils % 0.6 Basophils % 0.2 Nucleated Red Blood Cells % 0.0 Immature Granulocytes # 0.180 H Neutrophils # 8.4 H Lymphocytes # 2.4 Monocytes # 0.8 Eosinophils # 0.1 Basophils # 0.0 Nucleated Red Blood Cells # 0.0 Sodium Level 141 Potassium Level 4.8 Chloride Level 105 Carbon Dioxide Level 27 Anion Gap 9 Blood Urea Nitrogen 25 H Creatinine 2.15 H Est Glomerular Filtrat Rate mL/min Glucose Level 90 Calcium Level 8.5 Phosphorus Level 4.9 Magnesium Level 1.7 Medications Medications Current Medications Abacavir/ Lamivudine (Epzicom) 1 tab DAILY PO Last administered on 03/06/19 09:15; Admin Dose 1 TAB; Start 03/05/19 at 09:00 Divalproex Sodium (Depakote Er) 500 mg BID PO Last administered on 03/06/19 09:15; Admin Dose 500 MG; Start 03/05/19 at 09:00 Doxazosin Mesylate (Cardura) 4 mg HS PO Last administered on 03/05/19 21:42; Admin Dose 4 MG; Start 03/05/19 at 21:00 Dutasteride (Avodart) 0.5 mg DAILY PO Last administered on 03/06/19 09:14; Admin Dose 0.5 MG; Start 03/05/19 at 09:00 Miscellaneous Medication (Isentress) 400 mg BID PO Last administered on 03/06/19 09:15; Admin Dose 400 MG; Start 03/05/19 at 09:00 Ondansetron HCl (Zofran Inj) 4 mg Q4H PRN IV NAUSEA AND/OR VOMITING; Start 03/04/19 at 23:30 Acetaminophen (Tylenol Tab) 650 mg Q6H PRN PO MILD PAIN(1-3)OR ELEVATED TEMP; Start 03/05/19 at 00:00 Atorvastatin Calcium (Lipitor) 10 mg HS PO Last administered on 03/05/19 20:58; Admin Dose 10 MG; Start 03/05/19 at 21:00 Docusate Sodium (Colace) 100 mg BID PRN PO CONSTIPATION; Start 03/05/19 at 00:00 Famotidine (Pepcid) 20 mg DAILY PO Last administered on 03/06/19 09:14; Admin Dose 20 MG; Start 03/05/19 at 09:00 Magnesium Hydroxide (Milk Of Mag) 30 ml DAILY PRN PO CONSTIPATION; Start 03/05/19 at 00:00 Phenol (Cepastat Lozenge) 1 lozenge Q1H PRN MT SORE THROAT; Start 03/05/19 at 00:00 Quetiapine Fumarate (Seroquel) 50 mg HS PO Last administered on 03/05/19at 20:58; Admin Dose 50 MG; Start 03/05/19 at 21:00 Tramadol HCl (Ultram) 50 mg Q6H PRN PO MODERATE PAIN LEVEL 4-6; Start 03/05/19 at 00:00 Senna (Senokot) 1 tab HS PO Last administered on 03/05/19at 20:58; Admin Dose 1 TAB; Start 03/05/19 at 21:00 Lactulose (Enulose) 20 gm DAILY PRN PO CONSTIPATION; Start 03/05/19 at 00:00 Bisacodyl (Dulcolax Supp) 10 mg DAILY PRN [place] CONSTIPATION; Start 03/05/19 at 00:00 IV Flush (NS 3 ml) 3 ml Q8H and PRN adm IV ; Start 03/05/19 at 01:30 Ceftriaxone Sodium 50 ml @ 100 mls/hr Q24H IVPB Last administered on 03/05/19at 15:55; Admin Dose 100 MLS/HR; Start 03/05/19 at 16:30 Metoprolol Tartrate (Lopressor) 25 mg DAILY PO Last administered on 03/06/19at 09:14; Admin Dose 25 MG; Start 03/06/19 at 09:00 PINEDA CHUA MD Mar 06, 2019 09:41
--- NOTE | 2019-03-06 10:45 | PN ---
Date/Time of Note Date/Time of Note DATE: 03/06/19 TIME: 10:43 Subjective Comfortable Objective Vital Signs Date Temp Pulse Resp B/P (MAP) Pulse Ox O2 O2 Flow FiO2 Time Delivery Rate 03/06/19 109 110/66 09:17 (81) 03/06/19 98.5 20 92 Room Air 07:30 Intake and Output 03/05/19 03/05/19 03/06/19 1414:59 22:59 06:59 IntakeIntake Total 540 ml 890 ml 1350 ml OutputOutput Total 650 ml 460 ml 1590 ml BalanceBalance -110 ml 430 ml -240 ml Exam pulm-cta bd-soft cga ambulation Results/Medications Result Diagram: 03/06/19 0616 03/06/19 0616 Results 24 hrs Laboratory Tests Test 03/06/19 06:16 White Blood Count 11.8 H Red Blood Count 2.87 L Hemoglobin 9.2 L Hematocrit 27.9 L Mean Corpuscular Volume 97.2 Mean Corpuscular Hemoglobin 32.1 Mean Corpuscular Hemoglobin Concent 33.0 Red Cell Distribution Width 15.5 H Platelet Count 313 Mean Platelet Volume 9.7 Immature Granulocytes % 1.500 H Neutrophils % 70.5 Lymphocytes % 20.4 Monocytes % 6.8 Eosinophils % 0.6 Basophils % 0.2 Nucleated Red Blood Cells % 0.0 Immature Granulocytes # 0.180 H Neutrophils # 8.4 H Lymphocytes # 2.4 Monocytes # 0.8 Eosinophils # 0.1 Basophils # 0.0 Nucleated Red Blood Cells # 0.0 Sodium Level 141 Potassium Level 4.8 Chloride Level 105 Carbon Dioxide Level 27 Anion Gap 9 Blood Urea Nitrogen 25 H Creatinine 2.15 H Est Glomerular Filtrat Rate mL/min Glucose Level 90 Calcium Level 8.5 Phosphorus Level 4.9 Magnesium Level 1.7 Medications Current Medications Abacavir/ Lamivudine (Epzicom) 1 tab DAILY PO Last administered on 03/06/19at 09:15; Admin Dose 1 TAB; Start 03/05/19 at 09:00 Divalproex Sodium (Depakote Er) 500 mg BID PO Last administered on 03/06/19at 09:15; Admin Dose 500 MG; Start 03/05/19 at 09:00 Doxazosin Mesylate (Cardura) 4 mg HS PO Last administered on 03/05/19at 21:42; Admin Dose 4 MG; Start 03/05/19 at 21:00 Dutasteride (Avodart) 0.5 mg DAILY PO Last administered on 03/06/19 09:14; Admin Dose 0.5 MG; Start 03/05/19 at 09:00 Miscellaneous Medication (Isentress) 400 mg BID PO Last administered on 03/06/19 09:15; Admin Dose 400 MG; Start 03/05/19 at 09:00 Ondansetron HCl (Zofran Inj) 4 mg Q4H PRN IV NAUSEA AND/OR VOMITING; Start 03/04/19 at 23:30 Acetaminophen (Tylenol Tab) 650 mg Q6H PRN PO MILD PAIN(1-3)OR ELEVATED TEMP; Start 03/05/19 at 00:00 Atorvastatin Calcium (Lipitor) 10 mg HS PO Last administered on 03/05/19at 20:58; Admin Dose 10 MG; Start 03/05/19 at 21:00 Docusate Sodium (Colace) 100 mg BID PRN PO CONSTIPATION; Start 03/05/19 at 00:00 Famotidine (Pepcid) 20 mg DAILY PO Last administered on 03/06/19 09:14; Admin Dose 20 MG; Start 03/05/19 at 09:00 Magnesium Hydroxide (Milk Of Mag) 30 ml DAILY PRN PO CONSTIPATION; Start 03/05/19 at 00:00 Phenol (Cepastat Lozenge) 1 lozenge Q1H PRN MT SORE THROAT; Start 03/05/19 at 00:00 Quetiapine Fumarate (Seroquel) 50 mg HS PO Last administered on 03/05/19at 20:58; Admin Dose 50 MG; Start 03/05/19 at 21:00 Tramadol HCl (Ultram) 50 mg Q6H PRN PO MODERATE PAIN LEVEL 4-6; Start 03/05/19 at 00:00 Senna (Senokot) 1 tab HS PO Last administered on 03/05/19at 20:58; Admin Dose 1 TAB; Start 03/05/19 at 21:00 Lactulose (Enulose) 20 gm DAILY PRN PO CONSTIPATION; Start 03/05/19 at 00:00 Bisacodyl (Dulcolax Supp) 10 mg DAILY PRN [place] CONSTIPATION; Start 03/05/19 at 00:00 IV Flush (NS 3 ml) 3 ml Q8H and PRN adm IV ; Start 03/05/19 at 01:30 Ceftriaxone Sodium 50 ml @ 100 mls/hr Q24H IVPB Last administered on 03/05/19at 15:55; Admin Dose 100 MLS/HR; Start 03/05/19 at 16:30 Metoprolol Tartrate (Lopressor) 25 mg DAILY PO Last administered on 03/06/19at 09:14; Admin Dose 25 MG; Start 03/06/19 at 09:00 Assessment/Plan Additional Assessment/Plan rehab- Toxic metabolic encephalopathy. Tolerating rehab program FEN- encourage po intake HIV positive. Dysarthria. BPH. Urinary tract infection. Hypertension. MAMTA CHILDS MD Mar 06, 2019 10:44
--- NOTE | 2019-03-06 13:07 | CONS ---
Consult Date/Type/Reason Admit Date/Time Mar 04, 2019 at 22:00 Initial Consult Date Date/Time of Note DATE: 03/06/19 TIME: 13:06 Subjective tolerates meds and therapies continues good uo poc reviewed with . HEENT: Head is normocephalic. NECK: Supple. HEART: Regular rate. LUNGS: Show diminished breath sounds at the base. ABDOMEN: Soft, nontender to palpation. No rebound or guarding. EXTREMITIES: Negative for clubbing, cyanosis, no edema. DERMATOLOGIC: No rashes. MUSCULOSKELETAL: No joint effusion. NEUROLOGIC: No change in exam. Objective Vitals Vital Signs Date Temp Pulse Resp B/P (MAP) Pulse Ox O2 O2 Flow FiO2 Time Delivery Rate 03/06/19 109 110/66 09:17 (81) 03/06/19 98.5 20 92 Room Air 07:30 Intake and Output 03/05/19 03/05/19 03/06/19 1515:00 23:00 07:00 IntakeIntake Total 540 ml 890 ml 1350 ml OutputOutput Total 650 ml 460 ml 1590 ml BalanceBalance -110 ml 430 ml -240 ml Results/Medications Result Diagram: 03/06/19 0616 03/06/19 0616 Results 24 hrs Laboratory Tests Test 03/06/19 06:16 White Blood Count 11.8 H Red Blood Count 2.87 L Hemoglobin 9.2 L Hematocrit 27.9 L Mean Corpuscular Volume 97.2 Mean Corpuscular Hemoglobin 32.1 Mean Corpuscular Hemoglobin Concent 33.0 Red Cell Distribution Width 15.5 H Platelet Count 313 Mean Platelet Volume 9.7 Immature Granulocytes % 1.500 H Neutrophils % 70.5 Lymphocytes % 20.4 Monocytes % 6.8 Eosinophils % 0.6 Basophils % 0.2 Nucleated Red Blood Cells % 0.0 Immature Granulocytes # 0.180 H Neutrophils # 8.4 H Lymphocytes # 2.4 Monocytes # 0.8 Eosinophils # 0.1 Basophils # 0.0 Nucleated Red Blood Cells # 0.0 Sodium Level 141 Potassium Level 4.8 Chloride Level 105 Carbon Dioxide Level 27 Anion Gap 9 Blood Urea Nitrogen 25 H Creatinine 2.15 H Est Glomerular Filtrat Rate mL/min Glucose Level 90 Calcium Level 8.5 Phosphorus Level 4.9 Magnesium Level 1.7 Home Meds Reported Medications Tramadol HCl (Tramadol HCl) 50 Mg Tablet, 50 MG PO Q6 PRN for PAIN 03/04/19 Quetiapine Fumarate* (Seroquel*) 50 Mg Tablet, 50 MG PO HS 03/04/19 Throat Lozenges* (Cepastat*) 9 Griselda Lozenge, 1 LOZENGE MT Q1H PRN for SORE THROAT 03/04/19 Magnesium Hydroxide* (Milk Of Magnesia*) 400 Mg/5 Ml Oral.susp, 30 ML PO DAILY PRN for GASTROINTESTINAL UPSET 03/04/19 Famotidine* (Famotidine*) 20 Mg Tablet, 20 MG PO DAILY 03/04/19 Docusate Sodium* (Colace*) 100 Mg Capsule, 100 MG PO DAILY PRN for CONSTIPATION 03/04/19 Ceftriaxone Na/Dextrose,Iso (Ceftriaxone 1 gm Piggyback) 1 Gm/50 Ml Froz.piggy, 1 GM IV DAILY 03/04/19 Atorvastatin Calcium (Atorvastatin Calcium) 10 Mg Tablet, 10 MG PO QHS 03/04/19 Acetaminophen* (Acetaminophen*) 650 Mg Tablet, 650 MG PO Q6H PRN for PAIN AND OR ELEVATED TEMP 03/04/19 Amiodarone Hcl* (Amiodarone Hcl*) 200 Mg Tablet, 200 MG PO DAILY, #30 TAB 02/27/19 Raltegravir Potassium* (Isentress*) 400 Mg Tablet, 400 MG PO BID, TAB 02/27/19 Abacavir Sulfate/Lamivudine (Abacavir-Lamivudine 600-300 mg) 1 Each Tablet, 1 TAB PO DAILY 02/27/19 Dutasteride* (Avodart*) 0.5 Mg Capsule, 0.5 MG PO DAILY, CAP 02/27/19 Quetiapine Fumarate* (Quetiapine Fumarate*) 25 Mg Tablet, 25 MG PO BID, TAB 02/27/19 Pravastatin Sodium* (Pravastatin Sodium*) 10 Mg Tablet, 10 MG PO HS, TAB 02/27/19 Doxazosin Mesylate* (Doxazosin Mesylate*) 4 Mg Tablet, 4 MG PO HS, TAB 02/27/19 Metoprolol Tartrate* (Lopressor*) 50 Mg Tab, 50 MG PO BID, #60 TAB 02/27/19 Divalproex Sodium* (Depakote ER*) 500 Mg Tabsr, 500 MG PO BID, #30 TAB.SA 02/27/19 Discontinued Reported Medications [metoprolol] No Conflict Check 04/22/13 [amiodarone] No Conflict Check 04/22/13 Medications Current Medications Abacavir/ Lamivudine (Epzicom) 1 tab DAILY PO Last administered on 03/06/19 09:15; Admin Dose 1 TAB; Start 03/05/19 at 09:00 Divalproex Sodium (Depakote Er) 500 mg BID PO Last administered on 03/06/19 09:15; Admin Dose 500 MG; Start 03/05/19 at 09:00 Doxazosin Mesylate (Cardura) 4 mg HS PO Last administered on 03/05/19 21:42; Admin Dose 4 MG; Start 03/05/19 at 21:00 Dutasteride (Avodart) 0.5 mg DAILY PO Last administered on 03/06/19 09:14; Admin Dose 0.5 MG; Start 03/05/19 at 09:00 Miscellaneous Medication (Isentress) 400 mg BID PO Last administered on 03/06/19 09:15; Admin Dose 400 MG; Start 03/05/19 at 09:00 Ondansetron HCl (Zofran Inj) 4 mg Q4H PRN IV NAUSEA AND/OR VOMITING; Start 03/04/19 at 23:30 Acetaminophen (Tylenol Tab) 650 mg Q6H PRN PO MILD PAIN(1-3)OR ELEVATED TEMP; Start 03/05/19 at 00:00 Atorvastatin Calcium (Lipitor) 10 mg HS PO Last administered on 03/05/19at 20:58; Admin Dose 10 MG; Start 03/05/19 at 21:00 Docusate Sodium (Colace) 100 mg BID PRN PO CONSTIPATION; Start 03/05/19 at 00:00 Famotidine (Pepcid) 20 mg DAILY PO Last administered on 03/06/19 09:14; Admin Dose 20 MG; Start 03/05/19 at 09:00 Magnesium Hydroxide (Milk Of Mag) 30 ml DAILY PRN PO CONSTIPATION; Start 03/05/19 at 00:00 Phenol (Cepastat Lozenge) 1 lozenge Q1H PRN MT SORE THROAT; Start 03/05/19 at 00:00 Quetiapine Fumarate (Seroquel) 50 mg HS PO Last administered on 03/05/19at 20:58; Admin Dose 50 MG; Start 03/05/19 at 21:00 Tramadol HCl (Ultram) 50 mg Q6H PRN PO MODERATE PAIN LEVEL 4-6; Start 03/05/19 at 00:00 Senna (Senokot) 1 tab HS PO Last administered on 03/05/19at 20:58; Admin Dose 1 TAB; Start 03/05/19 at 21:00 Lactulose (Enulose) 20 gm DAILY PRN PO CONSTIPATION; Start 03/05/19 at 00:00 Bisacodyl (Dulcolax Supp) 10 mg DAILY PRN CO CONSTIPATION; Start 03/05/19 at 00:00 IV Flush (NS 3 ml) 3 ml Q8H and PRN adm IV ; Start 03/05/19 at 01:30 Ceftriaxone Sodium 50 ml @ 100 mls/hr Q24H IVPB Last administered on 03/05/19at 15:55; Admin Dose 100 MLS/HR; Start 03/05/19 at 16:30 Metoprolol Tartrate (Lopressor) 25 mg DAILY PO Last administered on 03/06/19at 09:14; Admin Dose 25 MG; Start 03/06/19 at 09:00 Assessment/Plan Assessment/Plan (Daily) 1. Nonoliguric acute kidney injury on top of chronic kidney disease with previ ous baseline creatinine of 1.3 to 1.4 mg/dL. Etiology of acute kidney injury is secondary to volume depletion. Renal function has slowly been improving albeit very slowly. suggestive of atn. Continue current treatment plan, continue supportive care and renally dose all medications. 2. Hypomagnesemia. Continue to monitor and replete. 3. Anemia. Monitor hemoglobin and hematocrit levels. 4. Mineral bone disorder. Monitor calcium and phosphorus levels. 5. Hypertension. Continue current blood pressure regimen. 6. Urinary tract infection. The patient is completing antibiotic course. 7. Benign prostatic hypertrophy. Continue medical management. 8. Status post TIA. 9. HIV. Continue HAART therapy. KELLI ZAPATA MD Mar 06, 2019 13:07
--- NOTE | 2019-03-06 13:32 | PN ---
Date/Time of Note Date/Time of Note DATE: 03/06/19 TIME: 13:30 Objective Vitals Vital Signs Date Temp Pulse Resp B/P (MAP) Pulse Ox O2 O2 Flow FiO2 Time Delivery Rate 03/06/19 109 110/66 09:17 (81) 03/06/19 98.5 20 92 Room Air 07:30 Intake and Output 03/05/19 03/05/19 03/06/19 1515:00 23:00 07:00 IntakeIntake Total 540 ml 890 ml 1350 ml OutputOutput Total 650 ml 460 ml 1590 ml BalanceBalance -110 ml 430 ml -240 ml Results Result Diagram: 03/06/1916 03/06/19 0616 Medications Medications Current Medications Abacavir/ Lamivudine (Epzicom) 1 tab DAILY PO Last administered on 03/06/19at 09:15; Admin Dose 1 TAB; Start 03/05/19 at 09:00 Divalproex Sodium (Depakote Er) 500 mg BID PO Last administered on 03/06/19at 09:15; Admin Dose 500 MG; Start 03/05/19 at 09:00 Doxazosin Mesylate (Cardura) 4 mg HS PO Last administered on 03/05/19at 21:42; Admin Dose 4 MG; Start 03/05/19 at 21:00 Dutasteride (Avodart) 0.5 mg DAILY PO Last administered on 03/06/19at 09:14; Admin Dose 0.5 MG; Start 03/05/19 at 09:00 Miscellaneous Medication (Isentress) 400 mg BID PO Last administered on 03/06/19at 09:15; Admin Dose 400 MG; Start 03/05/19 at 09:00 Ondansetron HCl (Zofran Inj) 4 mg Q4H PRN IV NAUSEA AND/OR VOMITING; Start 03/04/19 at 23:30 Acetaminophen (Tylenol Tab) 650 mg Q6H PRN PO MILD PAIN(1-3)OR ELEVATED TEMP; Start 03/05/19 at 00:00 Atorvastatin Calcium (Lipitor) 10 mg HS PO Last administered on 03/05/19at 20:58; Admin Dose 10 MG; Start 03/05/19 at 21:00 Docusate Sodium (Colace) 100 mg BID PRN PO CONSTIPATION; Start 03/05/19 at 00:00 Famotidine (Pepcid) 20 mg DAILY PO Last administered on 03/06/19at 09:14; Admin Dose 20 MG; Start 03/05/19 at 09:00 Magnesium Hydroxide (Milk Of Mag) 30 ml DAILY PRN PO CONSTIPATION; Start 03/05/19 at 00:00 Phenol (Cepastat Lozenge) 1 lozenge Q1H PRN MT SORE THROAT; Start 03/05/19 at 00:00 Quetiapine Fumarate (Seroquel) 50 mg HS PO Last administered on 03/05/19at 20:58; Admin Dose 50 MG; Start 03/05/19 at 21:00 Tramadol HCl (Ultram) 50 mg Q6H PRN PO MODERATE PAIN LEVEL 4-6; Start 03/05/19 at 00:00 Senna (Senokot) 1 tab HS PO Last administered on 03/05/19at 20:58; Admin Dose 1 TAB; Start 03/05/19 at 21:00 Lactulose (Enulose) 20 gm DAILY PRN PO CONSTIPATION; Start 03/05/19 at 00:00 Bisacodyl (Dulcolax Supp) 10 mg DAILY PRN [place] CONSTIPATION; Start 03/05/19 at 00:00 IV Flush (NS 3 ml) 3 ml Q8H and PRN adm IV ; Start 03/05/19 at 01:30 Ceftriaxone Sodium 50 ml @ 100 mls/hr Q24H IVPB Last administered on 03/05/19at 15:55; Admin Dose 100 MLS/HR; Start 03/05/19 at 16:30 Metoprolol Tartrate (Lopressor) 25 mg DAILY PO Last administered on 03/06/19at 09:14; Admin Dose 25 MG; Start 03/06/19 at 09:00 VTE Prophylaxis Risk score (from Nsg)>0 risk: 5 SCD applied (from Nsg): No SCD contraindication: low risk/ambulating, other Lines/Catheters IV Catheter Type: Zimmer in Place: No Assessment/Plan Hospital Course Subjective Patient doing well, no acute complaints Objective Physical exam General: Patient is laying in bed and answers questions appropriately Mentation: Patient is alert and oriented 4, Head: Normocephalic atraumatic Eyes: EOMI, pupils reactive to light Neck: Supple, nontender, midline Respiratory: Clear to auscultation bilaterally Cardiovascular: regular rate, no obvious murmurs Gastrointestinal: non-tender to palpation, bowel sounds heard. Neurological: Moves all extremities spontaneously Skin: No new skin lesions SSESSMENT AND PLAN Dysarthria/gait disturbance -Questionable encephalopathy in HIV complicated by UTI -s/p neurology work-up. No acute focal MRI CT TECH etiologies. -No LP studies recommended by neuro. Will get a WNV serology. -Dysarthria persists-Repeat MRI -Continue PT/ST/OT Acute kidney injury 2/2 volume depletion on CKD with baseline creatinine 1.3- 1.4. -Being followed by [employer]. Continues to improve daily Paroxysmal atrial fibrillation. -Patient had a heart rate up to 130 yesterday with physical therapy. Resume BB at lower dose w/BP parameters - cardiology on board - add also amiodarone as needed, was patient's home med HIV -on HAART UTI -ABX per ID BPH -Continue Cardura History of arrhythmia -Monitor closely Hypertension -Stable. Dyslipidemia -On statin Anxiety/sleep disorders -Continue seroquel DVT prophylaxis: SCDs Disposition -Continue rehab, continue to monitor for continued renal improvement WATSON VILLANUEVA Mar 06, 2019 13:32
[2019-03-06 14:00] VITALS: BP 119/70; PULSE 74; RESP 18
[2019-03-06] MEDS: CEFTRIAXONE 1 GM/50 ML (PMX) 50 ML IVPB SCH (15:48)
[2019-03-06 20:03] VITALS: BP 122/68; PULSE 88; RESP 18
[2019-03-06] MEDS: ATORVASTATIN 10 MG TAB PO SCH (20:27)
[2019-03-06] MEDS: DOXAZOSIN 4 MG TAB PO SCH (20:30)
[2019-03-06] MEDS: QUETIAPINE 25 MG TAB PO SCH (20:30)
[2019-03-06] MEDS: SENNA TAB PO SCH (21:00)
[2019-03-07 02:00] VITALS: BP 114/65; PULSE 82; RESP 18
[2019-03-07 07:00] VITALS: BP 95/52; PULSE 124; RESP 18
[2019-03-07 09:07] VITALS: BP 101/56; PULSE 106
[2019-03-07] MEDS: METOPROLOL 25 MG TAB PO SCH (09:11)
[2019-03-07] MEDS: RALTEGRAVIR 400 MG TAB PO SCH ×2 (09:11→21:07)
[2019-03-07] MEDS: DIVALPROEX (ER) 500 MG TAB PO SCH ×2 (09:11→21:05)
[2019-03-07] MEDS: FAMOTIDINE 20 MG TAB PO SCH (09:11)
[2019-03-07] MEDS: DUTASTERIDE 0.5 MG CAP PO SCH (09:11)
[2019-03-07] MEDS ORDERED: MAGNESIUM OXIDE 400 MG TAB PO ONE (10:00)
[2019-03-07] MEDS: SOD CHLORIDE 0.9% 1,000 ML IV SCH (10:37)
[2019-03-07] MEDS: ABACAVIR/LAMIVUDINE TAB PO SCH (10:37)
[2019-03-07] MEDS: AMIODARONE 200 MG TAB PO SCH (10:43)
--- NOTE | 2019-03-07 10:52 | CONS ---
Consult Date/Type/Reason Admit Date/Time Mar 04, 2019 at 22:00 Initial Consult Date Date/Time of Note DATE: 03/07/19 TIME: 10:49 Subjective tolerates meds and therapies continues good uo. noted some loose bm per nursing. poc reviewed with . HEENT: Head is normocephalic. NECK: Supple. HEART: Regular rate. LUNGS: Show diminished breath sounds at the base. ABDOMEN: Soft, nontender to palpation. No rebound or guarding. EXTREMITIES: Negative for clubbing, cyanosis, no edema. DERMATOLOGIC: No rashes. MUSCULOSKELETAL: No joint effusion. NEUROLOGIC: No change in exam. Objective Vitals Vital Signs Date Temp Pulse Resp B/P (MAP) Pulse Ox O2 O2 Flow FiO2 Time Delivery Rate 03/07/19 106 101/56 09:07 (71) 03/07/19 98.0 18 92 Room Air 07:00 Intake and Output 03/06/19 03/06/19 03/07/19 1515:00 23:00 07:00 IntakeIntake Total 1030 ml 1400 ml OutputOutput Total 640 ml 500 ml BalanceBalance 390 ml 900 ml Results/Medications Result Diagram: 03/07/19 0630 03/07/19 0630 Results 24 hrs Laboratory Tests Test 03/07/19 06:30 White Blood Count 11.3 H Red Blood Count 2.83 L Hemoglobin 8.9 L Hematocrit 27.4 L Mean Corpuscular Volume 96.8 Mean Corpuscular Hemoglobin 31.4 Mean Corpuscular Hemoglobin Concent 32.5 Red Cell Distribution Width 15.6 H Platelet Count 278 Mean Platelet Volume 9.3 Immature Granulocytes % 1.100 H Neutrophils % 70.8 Lymphocytes % 20.1 Monocytes % 6.8 Eosinophils % 0.8 Basophils % 0.4 Nucleated Red Blood Cells % 0.0 Immature Granulocytes # 0.120 H Neutrophils # 8.0 H Lymphocytes # 2.3 Monocytes # 0.8 Eosinophils # 0.1 Basophils # 0.0 Nucleated Red Blood Cells # 0.0 Sodium Level 139 Potassium Level 4.5 Chloride Level 106 Carbon Dioxide Level 26 Anion Gap 7 Blood Urea Nitrogen 23 H Creatinine 2.18 H Est Glomerular Filtrat Rate mL/min Glucose Level 95 Calcium Level 8.3 L Phosphorus Level 4.4 Magnesium Level 1.6 L Home Meds Reported Medications Tramadol HCl (Tramadol HCl) 50 Mg Tablet, 50 MG PO Q6 PRN for PAIN 03/04/19 Quetiapine Fumarate* (Seroquel*) 50 Mg Tablet, 50 MG PO HS 03/04/19 Throat Lozenges* (Cepastat*) 9 Griselda Lozenge, 1 LOZENGE MT Q1H PRN for SORE THROAT 03/04/19 Magnesium Hydroxide* (Milk Of Magnesia*) 400 Mg/5 Ml Oral.susp, 30 ML PO DAILY PRN for GASTROINTESTINAL UPSET 03/04/19 Famotidine* (Famotidine*) 20 Mg Tablet, 20 MG PO DAILY 03/04/19 Docusate Sodium* (Colace*) 100 Mg Capsule, 100 MG PO DAILY PRN for CONSTIPATION 03/04/19 Ceftriaxone Na/Dextrose,Iso (Ceftriaxone 1 gm Piggyback) 1 Gm/50 Ml Froz.piggy, 1 GM IV DAILY 03/04/19 Atorvastatin Calcium (Atorvastatin Calcium) 10 Mg Tablet, 10 MG PO QHS 03/04/19 Acetaminophen* (Acetaminophen*) 650 Mg Tablet, 650 MG PO Q6H PRN for PAIN AND OR ELEVATED TEMP 03/04/19 Amiodarone Hcl* (Amiodarone Hcl*) 200 Mg Tablet, 200 MG PO DAILY, #30 TAB 02/27/19 Raltegravir Potassium* (Isentress*) 400 Mg Tablet, 400 MG PO BID, TAB 02/27/19 Abacavir Sulfate/Lamivudine (Abacavir-Lamivudine 600-300 mg) 1 Each Tablet, 1 TAB PO DAILY 02/27/19 Dutasteride* (Avodart*) 0.5 Mg Capsule, 0.5 MG PO DAILY, CAP 02/27/19 Quetiapine Fumarate* (Quetiapine Fumarate*) 25 Mg Tablet, 25 MG PO BID, TAB 02/27/19 Pravastatin Sodium* (Pravastatin Sodium*) 10 Mg Tablet, 10 MG PO HS, TAB 02/27/19 Doxazosin Mesylate* (Doxazosin Mesylate*) 4 Mg Tablet, 4 MG PO HS, TAB 02/27/19 Metoprolol Tartrate* (Lopressor*) 50 Mg Tab, 50 MG PO BID, #60 TAB 02/27/19 Divalproex Sodium* (Depakote ER*) 500 Mg Tabsr, 500 MG PO BID, #30 TAB.SA 02/27/19 Medications Current Medications Abacavir/ Lamivudine (Epzicom) 1 tab DAILY PO Last administered on 03/07/19 10:37; Admin Dose 1 TAB; Start 03/05/19 at 09:00 Divalproex Sodium (Depakote Er) 500 mg BID PO Last administered on 03/07/19 09:11; Admin Dose 500 MG; Start 03/05/19 at 09:00 Doxazosin Mesylate (Cardura) 4 mg HS PO Last administered on 03/06/19 20:30; A dmin Dose 4 MG; Start 03/05/19 at 21:00 Dutasteride (Avodart) 0.5 mg DAILY PO Last administered on 03/07/19 09:11; Admin Dose 0.5 MG; Start 03/05/19 at 09:00 Miscellaneous Medication (Isentress) 400 mg BID PO Last administered on 03/07/19 09:11; Admin Dose 400 MG; Start 03/05/19 at 09:00 Ondansetron HCl (Zofran Inj) 4 mg Q4H PRN IV NAUSEA AND/OR VOMITING; Start 03/04/19 at 23:30 Acetaminophen (Tylenol Tab) 650 mg Q6H PRN PO MILD PAIN(1-3)OR ELEVATED TEMP; Start 03/05/19 at 00:00 Atorvastatin Calcium (Lipitor) 10 mg HS PO Last administered on 03/06/19 20:27; Admin Dose 10 MG; Start 03/05/19 at 21:00 Docusate Sodium (Colace) 100 mg BID PRN PO CONSTIPATION; Start 03/05/19 at 00:00 Famotidine (Pepcid) 20 mg DAILY PO Last administered on 03/07/19 09:11; Admin Dose 20 MG; Start 03/05/19 at 09:00 Magnesium Hydroxide (Milk Of Mag) 30 ml DAILY PRN PO CONSTIPATION; Start 03/05/19 at 00:00 Phenol (Cepastat Lozenge) 1 lozenge Q1H PRN MT SORE THROAT; Start 03/05/19 at 00:00 Quetiapine Fumarate (Seroquel) 50 mg HS PO Last administered on 03/06/19 20:30; Admin Dose 50 MG; Start 03/05/19 at 21:00 Tramadol HCl (Ultram) 50 mg Q6H PRN PO MODERATE PAIN LEVEL 4-6; Start 03/05/19 at 00:00 Senna (Senokot) 1 tab HS PO Last administered on 03/05/19at 20:58; Admin Dose 1 TAB; Start 03/05/19 at 21:00 Lactulose (Enulose) 20 gm DAILY PRN PO CONSTIPATION; Start 03/05/19 at 00:00 Bisacodyl (Dulcolax Supp) 10 mg DAILY PRN MD CONSTIPATION; Start 03/05/19 at 00:00 IV Flush (NS 3 ml) 3 ml Q8H and PRN adm IV ; Start 03/05/19 at 01:30 Ceftriaxone Sodium 50 ml @ 100 mls/hr Q24H IVPB Last administered on 03/06/19at 15:48; Admin Dose 100 MLS/HR; Start 03/05/19 at 16:30 Metoprolol Tartrate (Lopressor) 25 mg DAILY PO Last administered on 03/07/19at 09:11; Admin Dose 25 MG; Start 03/06/19 at 09:00 Metronidazole 100 ml @ 100 mls/hr Q8 IVPB ; Start 03/07/19 at 14:00 Amiodarone HCl (Cordarone) 200 mg DAILY PO Last administered on 03/07/19at 10:43; Admin Dose 200 MG; Start 03/07/19 at 10:00 Sodium Chloride 1,000 ml @ 70 mls/hr [id number] IV Last administered on 03/07/19at 10:37; Admin Dose 70 MLS/HR; Start 03/07/19 at 10:00 Lactobacillus Acidophilus/ Rhamnosus (Culturelle) 1 cap BID PO ; Start 03/07/19 at 21:00 Non-Formulary Medication 2.5 ea BID PO ; Start 03/07/19 at 21:00; Status UNV Assessment/Plan Hospital Course (Demo Recall) 1. Nonoliguric acute kidney injury on top of chronic kidney disease with previous baseline creatinine of 1.3 to 1.4 mg/dL. Etiology of acute kidney injury is secondary to volume depletion. Renal function has slowly been improving albeit very slowly. suggestive of atn. Continue current treatment plan, continue supportive care and renally dose all medications. - watch for diuretic phase of valencia. all meds dosed ok. 2. Hypomagnesemia. Continue to monitor and replete. 3. Anemia. Monitor hemoglobin and hematocrit levels. 4. Mineral bone disorder. Monitor calcium and phosphorus levels. 5. Hypertension. Continue current blood pressure regimen. 6. Urinary tract infection. The patient is completing antibiotic course. 7. Benign prostatic hypertrophy. Continue medical management. 8. Status post TIA. 9. HIV. Continue HAART therapy. 10. loose bm- check stool KELLI Mills MD Mar 07, 2019 10:52
--- NOTE | 2019-03-07 11:07 | RADRPT ---
Vent Rate: 91 bpm RR Interval: 577 msec NM Interval: [id number] msec QRS Duration: 82 msec QT Interval: 394 msec QTC Interval: 519 msec P-R-T [place]: [id number] - 68 - 13 degrees Atrial fibrillation Minimal ST depression, diffuse leads...ST <-0.03mV, ant/lat/inf Prolonged QT interval...QTc >500mS Electronically Signed By: Edgard Craig
--- NOTE | 2019-03-07 12:38 | PN ---
Date/Time of Note Date/Time of Note DATE: 03/07/19 TIME: 12:36 Objective Vitals Vital Signs Date Temp Pulse Resp B/P (MAP) Pulse Ox O2 O2 Flow FiO2 Time Delivery Rate 03/07/19 106 101/56 09:07 (71) 03/07/19 98.0 18 92 Room Air 07:00 Intake and Output 03/06/19 03/06/19 03/07/19 1515:00 23:00 07:00 IntakeIntake Total 1030 ml 1400 ml OutputOutput Total 640 ml 500 ml BalanceBalance 390 ml 900 ml Results Result Diagram: 03/07/1930 03/07/19 0630 Medications Medications Current Medications Abacavir/ Lamivudine (Epzicom) 1 tab DAILY PO Last administered on 03/07/19at 10:37; Admin Dose 1 TAB; Start 03/05/19 at 09:00 Divalproex Sodium (Depakote Er) 500 mg BID PO Last administered on 03/07/19at 0 9:11; Admin Dose 500 MG; Start 03/05/19 at 09:00 Doxazosin Mesylate (Cardura) 4 mg HS PO Last administered on 03/06/19 20:30; Admin Dose 4 MG; Start 03/05/19 at 21:00 Dutasteride (Avodart) 0.5 mg DAILY PO Last administered on 03/07/19at 09:11; Admin Dose 0.5 MG; Start 03/05/19 at 09:00 Miscellaneous Medication (Isentress) 400 mg BID PO Last administered on 03/07/19 09:11; Admin Dose 400 MG; Start 03/05/19 at 09:00 Ondansetron HCl (Zofran Inj) 4 mg Q4H PRN IV NAUSEA AND/OR VOMITING; Start at 23:30 Acetaminophen (Tylenol Tab) 650 mg Q6H PRN PO MILD PAIN(1-3)OR ELEVATED TEMP; Start 03/05/19 at 00:00 Atorvastatin Calcium (Lipitor) 10 mg HS PO Last administered on 03/06/19at 20:27; Admin Dose 10 MG; Start 03/05/19 at 21:00 Docusate Sodium (Colace) 100 mg BID PRN PO CONSTIPATION; Start 03/05/19 at 00:00 Famotidine (Pepcid) 20 mg DAILY PO Last administered on 03/07/19 09:11; Admin Dose 20 MG; Start 03/05/19 at 09:00 Magnesium Hydroxide (Milk Of Mag) 30 ml DAILY PRN PO CONSTIPATION; Start 03/05/19 at 00:00 Phenol (Cepastat Lozenge) 1 lozenge Q1H PRN MT SORE THROAT; Start 03/05/19 at 00:00 Quetiapine Fumarate (Seroquel) 50 mg HS PO Last administered on 03/06/19at 20:30; Admin Dose 50 MG; Start 03/05/19 at 21:00 Tramadol HCl (Ultram) 50 mg Q6H PRN PO MODERATE PAIN LEVEL 4-6; Start 03/05/19 at 00:00 Senna (Senokot) 1 tab HS PO Last administered on 03/05/19at 20:58; Admin Dose 1 TAB; Start 03/05/19 at 21:00 Lactulose (Enulose) 20 gm DAILY PRN PO CONSTIPATION; Start 03/05/19 at 00:00 Bisacodyl (Dulcolax Supp) 10 mg DAILY PRN [place] CONSTIPATION; Start 03/05/19 at 00:00 IV Flush (NS 3 ml) 3 ml Q8H and PRN adm IV ; Start 03/05/19 at 01:30 Ceftriaxone Sodium 50 ml @ 100 mls/hr Q24H IVPB Last administered on 03/06/19at 15:48; Admin Dose 100 MLS/HR; Start 03/05/19 at 16:30 Metoprolol Tartrate (Lopressor) 25 mg DAILY PO Last administered on 03/07/19at 09:11; Admin Dose 25 MG; Start 03/06/19 at 09:00 Metronidazole 100 ml @ 100 mls/hr Q8 IVPB ; Start 03/07/19 at 14:00 Amiodarone HCl (Cordarone) 200 mg DAILY PO Last administered on 03/07/19at 10:43; Admin Dose 200 MG; Start 03/07/19 at 10:00 Sodium Chloride 1,000 ml @ 70 mls/hr [id number] IV Last administered on 03/07/19at 10:37; Admin Dose 70 MLS/HR; Start 03/07/19 at 10:00 Lactobacillus Acidophilus/ Rhamnosus (Culturelle) 1 cap BID PO ; Start 03/07/19 at 21:00 Apixaban (Eliquis) 2.5 mg BID PO ; Start 03/07/19 at 11:30 VTE Prophylaxis Risk score (from Ns)>0 risk: 6 SCD applied (from [facility] [place]): No SCD contraindication: other Lines/Catheters IV Catheter Type: Zimmer in Place: No Assessment/Plan Hospital Course Subjective Patient doing well, patient's diarrhea has been improving Objective Physical exam General: Patient is laying in bed and answers questions appropriately Mentation: Patient is alert and oriented 4, Head: Normocephalic atraumatic Eyes: EOMI, pupils reactive to light Neck: Supple, nontender, midline Respiratory: Clear to auscultation bilaterally Cardiovascular: regular rate, no obvious murmurs Gastrointestinal: non-tender to palpation, bowel sounds heard. Neurological: Moves all extremities spontaneously Skin: No new skin lesions SSESSMENT AND PLAN C. difficile colitis, diarrhea -Resolving -Started Flagyl -IV fluids started for diarrhea as patient's renal function slightly worsened Dysarthria/gait disturbance -Questionable encephalopathy in HIV complicated by UTI -s/p neurology work-up. No acute focal FIELD ARTILL[employer] CAN[employer]ER etiologies. -No LP studies recommended by neuro. Will get a WNV serology. -Dysarthria persists-Repeat MRI -Continue PT/ST/OT Acute kidney injury 2/2 volume depletion on CKD with baseline creatinine 1.3- 1.4. -Being followed by pollution control technician. Continues to improve daily Paroxysmal atrial fibrillation. -Patient had a heart rate up to 130 yesterday with physical therapy. Resume BB at lower dose w/BP parameters - cardiology on board - add also amiodaron, was patient's home med HIV -on HAART UTI -ABX per ID BPH -Continue Cardura History of arrhythmia -Monitor closely Hypertension -Stable. Dyslipidemia -On statin Anxiety/sleep disorders -Continue seroquel DVT prophylaxis: SCDs Disposition -Continue rehab, continue to monitor for continued renal improvement WATSON VILLANUEVA Mar 07, 2019 12:37
[2019-03-07] MEDS: metroNIDAZOLE 500 MG/NS (PMX) 100 ML IVPB SCH ×2 (13:26→21:07)
[2019-03-07] MEDS: APIXABAN 5 MG TABLET PO SCH ×2 (13:26→21:06)
[2019-03-07 14:00] VITALS: BP 112/67; PULSE 85; RESP 18
[2019-03-07] MEDS: CEFTRIAXONE 1 GM/50 ML (PMX) 50 ML IVPB SCH (16:36)
[2019-03-07 20:00] VITALS: BP 98/65; PULSE 92; RESP 18
[2019-03-07] MEDS ORDERED: LACTOBACILLUS RHAMNOSUS CAP PO SCH (21:00)
[2019-03-07] MEDS: SENNA TAB PO SCH (21:00)
[2019-03-07] MEDS ORDERED: SPECIAL NON-STANDARD MEDICATION PO SCH (21:00)
[2019-03-07] MEDS: ATORVASTATIN 10 MG TAB PO SCH (21:05)
[2019-03-07] MEDS: LACTOBACILLUS RHAMNOSUS CAP PO SCH (21:06)
[2019-03-07] MEDS: DOXAZOSIN 4 MG TAB PO SCH (21:06)
[2019-03-07] MEDS: DOXYCYCLINE 100 MG TAB PO SCH (21:06)
[2019-03-07] MEDS: QUETIAPINE 25 MG TAB PO SCH (21:06)
[2019-03-08] MEDS: SOD CHLORIDE 0.9% 1,000 ML IV SCH ×2 (00:18→02:17)
[2019-03-08 02:37] VITALS: BP 119/78; PULSE 73; RESP 18
[2019-03-08] MEDS: metroNIDAZOLE 500 MG/NS (PMX) 100 ML IVPB SCH ×2 (06:15→12:49)
[2019-03-08 07:30] VITALS: BP_SYST 134; BP_SYST 93; BP_DIAS 59; BP_DIAS 61; PULSE 120; PULSE 72; RESP 20
[2019-03-08] MEDS: METOPROLOL 25 MG TAB PO SCH (08:36)
--- NOTE | 2019-03-08 08:48 | PN ---
DATE: 03/08/2019 SUBJECTIVE: The patient is stable, no events overnight. OBJECTIVE: VITAL SIGNS: Blood pressure is 119/78, respirations 18, pulse 73, temperature 98.0. HEENT: Head is normocephalic. NECK: Supple. HEART: Regular rate. LUNGS: Show diminished breath sounds at the base. ABDOMEN: Soft, nontender to palpation without rebound or guarding. EXTREMITIES: Negative for clubbing, cyanosis. Trace edema. DERMATOLOGIC: No rashes. MUSCULOSKELETAL: No joint effusion. NEUROLOGIC: Change in exam. MEDICATIONS: Reviewed. LABORATORY DATA: Reviewed. IMAGING STUDIES: Reviewed. ASSESSMENT AND PLAN: 1. Nonoliguric acute kidney injury on top of chronic kidney disease with previous baseline creatinin e around 1.3 to 1.4 mg/dL. Etiology of acute kidney injury is secondary to hemodynamics, volume depl etion. The patient's renal function appears to be stabilizing around a creatinine of 2.2 to 2.4 mg/d L. At this point, continue current treatment plans, supportive care, renally dose all medications. We will discontinue IV fluids. 2. Hypomagnesemia. Continue to monitor and replete. 3. Anemia. Continue to monitor hemoglobin and hematocrit levels. 4. Mineral bone disorder, monitor calcium and phosphorus levels. 5. Hypertension. Continue current blood pressure regimen. 6. Urinary tract infection. The patient is completing antibiotic course. 7. Benign prostatic hypertrophy. Continue medical management. 8. History of human immunodeficiency virus. Continue HAART therapy. 9. Clostridium difficile. The patient's stool was noted to be positive for Clostridium difficile to gideon. Continue medical management. Continue Flagyl. Dictated By: EFRAIN LEMOS DO NR/NTS Conf#: [id number] DID#: [id number] CC: SRINIVAS PARKER DO; PADMA VALDEZ MD; MAMTA CHILDS MD;*End*
[2019-03-08] MEDS: DUTASTERIDE 0.5 MG CAP PO SCH (09:08)
[2019-03-08] MEDS: FAMOTIDINE 20 MG TAB PO SCH (09:08)
[2019-03-08] MEDS: DIVALPROEX (ER) 500 MG TAB PO SCH ×3 (09:08→20:47)
[2019-03-08] MEDS: APIXABAN 5 MG TABLET PO SCH ×3 (09:09→20:48)
[2019-03-08] MEDS: DOXYCYCLINE 100 MG TAB PO SCH (09:09)
[2019-03-08] MEDS: RALTEGRAVIR 400 MG TAB PO SCH ×2 (09:09→20:30)
[2019-03-08] MEDS: AMIODARONE 200 MG TAB PO SCH (09:09)
[2019-03-08] MEDS: LACTOBACILLUS RHAMNOSUS CAP PO SCH ×2 (09:09→20:47)
[2019-03-08] MEDS: ABACAVIR/LAMIVUDINE TAB PO SCH (09:09)
[2019-03-08] MEDS: MAGNESIUM SULFATE 2 GM/50 ML 50 ML IVPB ONE ×2 (09:10→10:45)
[2019-03-08 14:00] VITALS: BP 99/66; PULSE 96; RESP 20
--- NOTE | 2019-03-08 14:55 | PN ---
Date/Time of Note Date/Time of Note DATE: 03/08/19 TIME: 14:47 Assessment/Plan VTE Prophylaxis Risk score (from Ns)>0 risk: 5 SCD applied (from [facility] [place]): No SCD contraindicated: other Pharmacological prophylaxis: NA/contraindicated Pharm contraindication: low risk/ambulating Lines/Catheters IV [facility]from [facility] Saline Lock Urinary Cath still in place: No Assessment/Plan Hospital Course SUBJECTIVE: Patient continued to have diarrhea. OBJECTIVE: Vital signs-see below PHYSICAL EXAM: Constitutional: Adequately built,not in acute distress. HEENT: Head atraumatic and normocephalic. Eyes: Extraocular muscles intact. Anicteric sclerae. Pupils equal bilaterally, reactive to light. NECK: Supple without lymph node. CHEST: Clear and good breath sounds equally. No wheezing. No rhonchi. HEART: S1, S2. Regular rate and rhythm. ABDOMEN: Soft/non tender with no rebound tenderness. Bowel sounds were present. EXTREMITIES: No cyanosis, clubbing or edema. NEUROLOGIC:+Mild dysarthria. Alert and oriented x3. No focal deficit. No sensory deficit. PSYCHOSOCIAL: No signs of depression. INTEGUMENTARY: No open wounds. ASSESSMENT AND PLAN Dysarthria/gait disturbance -Questionable encephalopathy in HIV complicated by UTI -s/p neurology work-up. 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 -No LP studies recommended by neuro. f/u WNV serologies. -Continue PT/ST/OT C. difficile colitis -Diarrhea persists. Will add vancomycin to current regimen w/stop date placed -cont.Flagyl but change to oral version Acute kidney injury -Renal function has gotten worse likely secondary to C. difficile colitis. -Being followed by fashion adviser. Paroxysmal atrial fibrillation/flutter -Being followed by cardiology. -On eliquis/BB/amiodarone HIV -on HAART UTI -Patient received full course of antibiotic and we will stop this. Repeat cultures are negative other than showing contamination. BPH -Continue Cardura Hypertension -Stable. -cont.antihypertensives Dyslipidemia -On statin Anxiety/sleep disorders -Continue Seroquel DVT prophylaxis: SCDs Patient was seen in collaboration with Dr. Bush Result Diagram: 03/08/19 0608 03/08/19 0608 Results 24hrs Laboratory Tests Test 03/08/19 06:08 White Blood Count 8.3 # Red Blood Count 2.67 L Hemoglobin 8.5 L Hematocrit 26.3 L Mean Corpuscular Volume 98.5 Mean Corpuscular Hemoglobin 31.8 Mean Corpuscular Hemoglobin Concent 32.3 Red Cell Distribution Width 15.3 H Platelet Count 252 Mean Platelet Volume 9.1 Immature Granulocytes % 0.800 H Neutrophils % 66.2 Lymphocytes % 24.0 Monocytes % 7.2 Eosinophils % 1.3 Basophils % 0.5 Nucleated Red Blood Cells % 0.0 Immature Granulocytes # 0.070 H Neutrophils # 5.5 Lymphocytes # 2.0 Monocytes # 0.6 Eosinophils # 0.1 Basophils # 0.0 Nucleated Red Blood Cells # 0.0 Sodium Level 142 Potassium Level 4.3 Chloride Level 109 Carbon Dioxide Level 25 Anion Gap 8 Blood Urea Nitrogen 21 H Creatinine 2.32 H Est Glomerular Filtrat Rate mL/min Glucose Level 96 Calcium Level 8.4 Phosphorus Level 4.1 Magnesium Level 1.6 L Exam/Review of Systems Exam Vitals Vital Signs Date Temp Pulse Resp B/P (MAP) Pulse Ox O2 O2 Flow FiO2 Time Delivery Rate 03/08/19 Nasal 2.0 08:00 Cannula 03/08/19 97.9 120 20 93/61 (72) 98 07:30 Intake and Output 03/07/19 03/07/19 03/08/19 1515:00 23:00 07:00 IntakeIntake Total 500 ml 1700 ml 1200 ml OutputOutput Total 600 ml 1200 ml 900 ml BalanceBalance -100 ml 500 ml 300 ml Results Results 24hrs Laboratory Tests Test 03/08/19 06:08 White Blood Count 8.3 # Red Blood Count 2.67 L Hemoglobin 8.5 L Hematocrit 26.3 L Mean Corpuscular Volume 98.5 Mean Corpuscular Hemoglobin 31.8 Mean Corpuscular Hemoglobin Concent 32.3 Red Cell Distribution Width 15.3 H Platelet Count 252 Mean Platelet Volume 9.1 Immature Granulocytes % 0.800 H Neutrophils % 66.2 Lymphocytes % 24.0 Monocytes % 7.2 Eosinophils % 1.3 Basophils % 0.5 Nucleated Red Blood Cells % 0.0 Immature Granulocytes # 0.070 H Neutrophils # 5.5 Lymphocytes # 2.0 Monocytes # 0.6 Eosinophils # 0.1 Basophils # 0.0 Nucleated Red Blood Cells # 0.0 Sodium Level 142 Potassium Level 4.3 Chloride Level 109 Carbon Dioxide Level 25 Anion Gap 8 Blood Urea Nitrogen 21 H Creatinine 2.32 H Est Glomerular Filtrat Rate mL/min Glucose Level 96 Calcium Level 8.4 Phosphorus Level 4.1 Magnesium Level 1.6 L Medications Medication Current Medications Abacavir/ Lamivudine (Epzicom) 1 tab DAILY PO Last administered on 03/08/19 09:09; Admin Dose 1 TAB; Start 03/05/19 at 09:00 Divalproex Sodium (Depakote Er) 500 mg BID PO Last administered on 03/08/19 09:08; Admin Dose 500 MG; Start 03/05/19 at 09:00 Doxazosin Mesylate (Cardura) 4 mg HS PO Last administered on 03/07/19 21:06; Admin Dose 4 MG; Start 03/05/19 at 21:00 Dutasteride (Avodart) 0.5 mg DAILY PO Last administered on 03/08/19 09:08; Admin Dose 0.5 MG; Start 03/05/19 at 09:00 Miscellaneous Medication (Isentress) 400 mg BID PO Last administered on 03/08/19 09:09; Admin Dose 400 MG; Start 03/05/19 at 09:00 Ondansetron HCl (Zofran Inj) 4 mg Q4H PRN IV NAUSEA AND/OR VOMITING; Start 03/04/19 at 23:30 Acetaminophen (Tylenol Tab) 650 mg Q6H PRN PO MILD PAIN(1-3)OR ELEVATED TEMP; Start 03/05/19 at 00:00 Atorvastatin Calcium (Lipitor) 10 mg HS PO Last administered on 03/07/19 21:05; Admin Dose 10 MG; Start 03/05/19 at 21:00 Docusate Sodium (Colace) 100 mg BID PRN PO CONSTIPATION; Start 03/05/19 at 00:00 Famotidine (Pepcid) 20 mg DAILY PO Last administered on 03/08/19 09:08; Admin Dose 20 MG; Start 03/05/19 at 09:00 Magnesium Hydroxide (Milk Of Mag) 30 ml DAILY PRN PO CONSTIPATION; Start 03/05/19 at 00:00 Phenol (Cepastat Lozenge) 1 lozenge Q1H PRN MT SORE THROAT; Start 03/05/19 at 00:00 Quetiapine Fumarate (Seroquel) 50 mg HS PO Last administered on 03/07/19 21:06; Admin Dose 50 MG; Start 03/05/19 at 21:00 Tramadol HCl (Ultram) 50 mg Q6H PRN PO MODERATE PAIN LEVEL 4-6; Start 03/05/19 at 00:00 Senna (Senokot) 1 tab HS PO Last administered on 03/05/19 20:58; Admin Dose 1 TAB; Start 03/05/19 at 21:00 Lactulose (Enulose) 20 gm DAILY PRN PO CONSTIPATION; Start 03/05/19 at 00:00 Bisacodyl (Dulcolax Supp) 10 mg DAILY PRN [place] CONSTIPATION; Start 03/05/19 at 00:00 IV Flush (NS 3 ml) 3 ml Q8H and PRN adm IV ; Start 03/05/19 at 01:30 Ceftriaxone Sodium 50 ml @ 100 mls/hr Q24H IVPB Last administered on 03/07/19 16:36; Admin Dose 100 MLS/HR; Start 03/05/19 at 16:30 Metoprolol Tartrate (Lopressor) 25 mg DAILY PO Last administered on 03/07/19 09:11; Admin Dose 25 MG; Start 03/06/19 at 09:00 Metronidazole 100 ml @ 100 mls/hr Q8 IVPB Last administered on 03/08/19 12:49; Admin Dose 100 MLS/HR; Start 03/07/19 at 14:00 Amiodarone HCl (Cordarone) 200 mg DAILY PO Last administered on 03/08/19 09:09; Admin Dose 200 MG; Start 03/07/19 at 10:00 Lactobacillus Acidophilus/ Rhamnosus (Culturelle) 1 cap BID PO Last administered on 03/08/19 09:09; Admin Dose 1 CAP; Start 03/07/19 at 21:00 Apixaban (Eliquis) 2.5 mg BID PO Last administered on 03/08/19 09:09; Admin Dose 2.5 MG; Start 03/07/19 at 11:30 Doxycycline Hyclate (Vibramycin) 100 mg BID PO Last administered on 03/08/19 09:09; Admin Dose 100 MG; Start 03/07/19 at 21:00 AGNES LAMA NP Mar 08, 2019 14:55
[2019-03-08] MEDS: VANCOMYCIN HCL 250 MG/5ML POSYG PO SCH ×4 (15:00→23:41)
--- NOTE | 2019-03-08 15:01 | PN ---
Date/Time of Note Date/Time of Note DATE: 03/08/19 TIME: 15:00 Subjective No new complaints Objective Vital Signs Date Temp Pulse Resp B/P (MAP) Pulse Ox O2 O2 Flow FiO2 Time Delivery Rate 03/08/19 Nasal 2.0 08:00 Cannula 03/08/19 97.9 120 20 93/61 (72) 98 07:30 Intake and Output 03/07/19 03/07/19 03/08/19 1515:00 23:00 07:00 IntakeIntake Total 500 ml 1700 ml 1200 ml OutputOutput Total 600 ml 1200 ml 900 ml BalanceBalance -100 ml 500 ml 300 ml Exam sba bed mobility cga transfer cga ambulation Results/Medications Result Diagram: 03/08/19 0608 03/08/19 0608 Results 24 hrs Laboratory Tests Test 03/08/19 06:08 White Blood Count 8.3 # Red Blood Count 2.67 L Hemoglobin 8.5 L Hematocrit 26.3 L Mean Corpuscular Volume 98.5 Mean Corpuscular Hemoglobin 31.8 Mean Corpuscular Hemoglobin Concent 32.3 Red Cell Distribution Width 15.3 H Platelet Count 252 Mean Platelet Volume 9.1 Immature Granulocytes % 0.800 H Neutrophils % 66.2 Lymphocytes % 24.0 Monocytes % 7.2 Eosinophils % 1.3 Basophils % 0.5 Nucleated Red Blood Cells % 0.0 Immature Granulocytes # 0.070 H Neutrophils # 5.5 Lymphocytes # 2.0 Monocytes # 0.6 Eosinophils # 0.1 Basophils # 0.0 Nucleated Red Blood Cells # 0.0 Sodium Level 142 Potassium Level 4.3 Chloride Level 109 Carbon Dioxide Level 25 Anion Gap 8 Blood Urea Nitrogen 21 H Creatinine 2.32 H Est Glomerular Filtrat Rate mL/min Glucose Level 96 Calcium Level 8.4 Phosphorus Level 4.1 Magnesium Level 1.6 L Medications Current Medications Abacavir/ Lamivudine (Epzicom) 1 tab DAILY PO Last administered on 03/08/19at 09:09; Admin Dose 1 TAB; Start 03/05/19 at 09:00 Divalproex Sodium (Depakote Er) 500 mg BID PO Last administered on 03/08/19at 09:08; Admin Dose 500 MG; Start 03/05/19 at 09:00 Doxazosin Mesylate (Cardura) 4 mg HS PO Last administered on 03/07/19at 21:06; Admin Dose 4 MG; Start 03/05/19 at 21:00 Dutasteride (Avodart) 0.5 mg DAILY PO Last administered on 03/08/19 09:08; Admin Dose 0.5 MG; Start 03/05/19 at 09:00 Miscellaneous Medication (Isentress) 400 mg BID PO Last administered on 03/08/19 09:09; Admin Dose 400 MG; Start 03/05/19 at 09:00 Ondansetron HCl (Zofran Inj) 4 mg Q4H PRN IV NAUSEA AND/OR VOMITING; Start 03/04/19 at 23:30 Acetaminophen (Tylenol Tab) 650 mg Q6H PRN PO MILD PAIN(1-3)OR ELEVATED TEMP; Start 03/05/19 at 00:00 Atorvastatin Calcium (Lipitor) 10 mg HS PO Last administered on 03/07/19at 21:05; Admin Dose 10 MG; Start 03/05/19 at 21:00 Docusate Sodium (Colace) 100 mg BID PRN PO CONSTIPATION; Start 03/05/19 at 00:00 Famotidine (Pepcid) 20 mg DAILY PO Last administered on 03/08/19 09:08; Admin Dose 20 MG; Start 03/05/19 at 09:00 Magnesium Hydroxide (Milk Of Mag) 30 ml DAILY PRN PO CONSTIPATION; Start 03/05/19 at 00:00 Phenol (Cepastat Lozenge) 1 lozenge Q1H PRN [place] SORE THROAT; Start 03/05/19 at 00:00 Quetiapine Fumarate (Seroquel) 50 mg HS PO Last administered on 03/07/19at 21:06; Admin Dose 50 MG; Start 03/05/19 at 21:00 Tramadol HCl (Ultram) 50 mg Q6H PRN PO MODERATE PAIN LEVEL 4-6; Start 03/05/19 at 00:00 Senna (Senokot) 1 tab HS PO Last administered on 03/05/19at 20:58; Admin Dose 1 TAB; Start 03/05/19 at 21:00 Lactulose (Enulose) 20 gm DAILY PRN PO CONSTIPATION; Start 03/05/19 at 00:00 Bisacodyl (Dulcolax Supp) 10 mg DAILY PRN [place] CONSTIPATION; Start 03/05/19 at 00:00 IV Flush (NS 3 ml) 3 ml Q8H and PRN adm IV ; Start 03/05/19 at 01:30 Metoprolol Tartrate (Lopressor) 25 mg DAILY PO Last administered on 03/07/19at 09:11; Admin Dose 25 MG; Start 03/06/19 at 09:00 Amiodarone HCl (Cordarone) 200 mg DAILY PO Last administered on 03/08/19at 09:09; Admin Dose 200 MG; Start 03/07/19 at 10:00 Lactobacillus Acidophilus/ Rhamnosus (Culturelle) 1 cap BID PO Last administered on 03/08/19at 09:09; Admin Dose 1 CAP; Start 03/07/19 at 21:00 Apixaban (Eliquis) 2.5 mg BID PO Last administered on 03/08/19at 09:09; Admin Dose 2.5 MG; Start 03/07/19 at 11:30 Vancomycin HCl (Vancomycin Oral Syringe) 125 mg Q6 PO ; Start 03/08/19 at 15:00; Stop 03/15/19 at 14:59; Status UNV Metronidazole (Flagyl) 500 mg Q8 PO ; Start 03/08/19 at 22:00; Stop 03/19/19 at 21:59; Status UNV Assessment/Plan Additional Assessment/Plan rehab- Toxic metabolic encephalopathy. Continue activities as tolerated GI- CDif colitis, on abx FEN- encourage po intake HIV positive. Dysarthria. BPH. Urinary tract infection- completed course Hypertension. MAMTA CHILDS MD Mar 08, 2019 15:01
[2019-03-08 20:00] VITALS: BP 108/62; RESP 18
[2019-03-08] MEDS: ATORVASTATIN 10 MG TAB PO SCH (20:30)
[2019-03-08] MEDS: QUETIAPINE 25 MG TAB PO SCH (20:30)
[2019-03-08] MEDS: DOXAZOSIN 4 MG TAB PO SCH (20:46)
[2019-03-08] MEDS: SENNA TAB PO SCH (20:53)
[2019-03-08] MEDS: metroNIDAZOLE 500 MG TAB PO SCH (21:50)
--- NOTE | 2019-03-08 22:51 | CONS ---
Assessment/Plan Assessment/Plan Hospital Course (Demo Recall) Atrial flutter Preserved EF SIRS decrease doxazosin if no contraindication cont BB and amio as celeste Cont a/c as celeste Consultation Date/Type/Reason Admit Date/Time Mar 04, 2019 at 22:00 Initial Consult Date Type of Consult Cardiology Date/Time of Note DATE: 03/08/19 TIME: 22:49 24 HR Interval Summary Free Text/Dictation no cp,sob,palp Exam/Review of Systems Vital Signs Vitals Vital Signs Date Temp Pulse Resp B/P (MAP) Pulse Ox O2 O2 Flow FiO2 Time Delivery Rate 03/08/19 97.8 18 108/62 96 Room Air 20:00 (77) 03/08/19 96 14:00 03/08/19 2.0 08:00 Intake and Output 03/07/19 03/07/19 03/08/19 1515:00 23:00 07:00 IntakeIntake Total 500 ml 1700 ml 1250 ml OutputOutput Total 600 ml 1200 ml 900 ml BalanceBalance -100 ml 500 ml 350 ml Exam Constitutional: alert, oriented (eating lunch) Head: normocephalic Respiratory: other (course bs, no wheeze) Cardiovascular: irregular rhythm (s1s2) Gastrointestinal: soft, non-tender, bowel sounds Extremities: other (no edema) Labs Result Diagram: 03/08/19 0608 03/08/19 0608 Results 24hrs Laboratory Tests Test 03/08/19 06:08 White Blood Count 8.3 # Red Blood Count 2.67 L Hemoglobin 8.5 L Hematocrit 26.3 L Mean Corpuscular Volume 98.5 Mean Corpuscular Hemoglobin 31.8 Mean Corpuscular Hemoglobin Concent 32.3 Red Cell Distribution Width 15.3 H Platelet Count 252 Mean Platelet Volume 9.1 Immature Granulocytes % 0.800 H Neutrophils % 66.2 Lymphocytes % 24.0 Monocytes % 7.2 Eosinophils % 1.3 Basophils % 0.5 Nucleated Red Blood Cells % 0.0 Immature Granulocytes # 0.070 H Neutrophils # 5.5 Lymphocytes # 2.0 Monocytes # 0.6 Eosinophils # 0.1 Basophils # 0.0 Nucleated Red Blood Cells # 0.0 Sodium Level 142 Potassium Level 4.3 Chloride Level 109 Carbon Dioxide Level 25 Anion Gap 8 Blood Urea Nitrogen 21 H Creatinine 2.32 H Est Glomerular Filtrat Rate mL/min Glucose Level 96 Calcium Level 8.4 Phosphorus Level 4.1 Magnesium Level 1.6 L Medications Medications Current Medications Abacavir/ Lamivudine (Epzicom) 1 tab DAILY PO Last administered on 03/08/19 09:09; Admin Dose 1 TAB; Start 03/05/19 at 09:00 Divalproex Sodium (Depakote Er) 500 mg BID PO Last administered on 03/08/19 20:47; Admin Dose 500 MG; Start 03/05/19 at 09:00 Doxazosin Mesylate (Cardura) 4 mg HS PO Last administered on 03/07/19 21:06; Admin Dose 4 MG; Start 03/05/19 at 21:00 Dutasteride (Avodart) 0.5 mg DAILY PO Last administered on 03/08/19 09:08; Admin Dose 0.5 MG; Start 03/05/19 at 09:00 Miscellaneous Medication (Isentress) 400 mg BID PO Last administered on 03/08/19 20:30; Admin Dose 400 MG; Start 03/05/19 at 09:00 Ondansetron HCl (Zofran Inj) 4 mg Q4H PRN IV NAUSEA AND/OR VOMITING; Start 03/04/19 at 23:30 Acetaminophen (Tylenol Tab) 650 mg Q6H PRN PO MILD PAIN(1-3)OR ELEVATED TEMP; Start 03/05/19 at 00:00 Atorvastatin Calcium (Lipitor) 10 mg HS PO Last administered on 03/08/19 20:30; Admin Dose 10 MG; Start 03/05/19 at 21:00 Docusate Sodium (Colace) 100 mg BID PRN PO CONSTIPATION; Start 03/05/19 at 00:00 Famotidine (Pepcid) 20 mg DAILY PO Last administered on 03/08/19 09:08; Admin Dose 20 MG; Start 03/05/19 at 09:00 Magnesium Hydroxide (Milk Of Mag) 30 ml DAILY PRN PO CONSTIPATION; Start at 00:00 Phenol (Cepastat Lozenge) 1 lozenge Q1H PRN [place] SORE THROAT; Start 03/05/19 at 00:00 Quetiapine Fumarate (Seroquel) 50 mg HS PO Last administered on 03/08/19 20:30; Admin Dose 50 MG; Start 03/05/19 at 21:00 Tramadol HCl (Ultram) 50 mg Q6H PRN PO MODERATE PAIN LEVEL 4-6; Start 03/05/19 at 00:00 Senna (Senokot) 1 tab HS PO Last administered on 03/05/19at 20:58; Admin Dose 1 TAB; Start 03/05/19 at 21:00 Lactulose (Enulose) 20 gm DAILY PRN PO CONSTIPATION; Start 03/05/19 at 00:00 Bisacodyl (Dulcolax Supp) 10 mg DAILY PRN [place] CONSTIPATION; Start 03/05/19 at 00:00 IV Flush (NS 3 ml) 3 ml Q8H and PRN adm IV ; Start 03/05/19 at 01:30 Metoprolol Tartrate (Lopressor) 25 mg DAILY PO Last administered on 03/07/19 09:11; Admin Dose 25 MG; Start 03/06/19 at 09:00 Amiodarone HCl (Cordarone) 200 mg DAILY PO Last administered on 03/08/19 09:09; Admin Dose 200 MG; Start 03/07/19 at 10:00 Lactobacillus Acidophilus/ Rhamnosus (Culturelle) 1 cap BID PO Last administered on 03/08/19 20:47; Admin Dose 1 CAP; Start 03/07/19 at 21:00 Apixaban (Eliquis) 2.5 mg BID PO Last administered on 03/08/19 20:48; Admin Dose 2.5 MG; Start 03/07/19 at 11:30 Vancomycin HCl (Vancomycin Oral Syringe) 125 mg Q6 PO Last administered on 03/08/19 17:27; Admin Dose 125 MG; Start 03/08/19 at 15:00; Stop 03/15/19 at 14:59 Metronidazole (Flagyl) 500 mg Q8 PO Last administered on 03/08/19 21:50; Admin Dose 500 MG; Start 03/08/19 at 22:00; Stop 03/19/19 at 21:59 Benny Hernandez DO Mar 08, 2019 22:51
[2019-03-09 02:28] VITALS: BP 121/84; PULSE 75; RESP 18
[2019-03-09] MEDS: VANCOMYCIN HCL 250 MG/5ML POSYG PO SCH ×4 (05:51→23:48)
[2019-03-09] MEDS: metroNIDAZOLE 500 MG TAB PO SCH ×3 (05:51→21:55)
[2019-03-09 07:00] VITALS: BP 113/81; PULSE 133; RESP 18
[2019-03-09] MEDS: FAMOTIDINE 20 MG TAB PO SCH (08:24)
[2019-03-09] MEDS: DUTASTERIDE 0.5 MG CAP PO SCH (08:25)
[2019-03-09] MEDS: LACTOBACILLUS RHAMNOSUS CAP PO SCH ×2 (08:25→20:50)
[2019-03-09] MEDS: AMIODARONE 200 MG TAB PO SCH ×2 (08:25→20:51)
[2019-03-09] MEDS: RALTEGRAVIR 400 MG TAB PO SCH ×2 (08:26→20:50)
[2019-03-09] MEDS: METOPROLOL 25 MG TAB PO SCH ×2 (08:26→20:52)
[2019-03-09] MEDS: ABACAVIR/LAMIVUDINE TAB PO SCH (08:26)
[2019-03-09] MEDS: APIXABAN 5 MG TABLET PO SCH ×2 (08:27→20:51)
[2019-03-09] MEDS: DIVALPROEX (ER) 500 MG TAB PO SCH ×2 (08:27→20:50)
--- NOTE | 2019-03-09 08:53 | PN ---
DATE: 03/09/2019 SUBJECTIVE: The patient is stable, no events overnight. OBJECTIVE: VITAL SIGNS: Blood pressure is 121/84, respirations 18, pulse 75, temperature 98.0. HEENT: Head is normocephalic. NECK: Supple. HEART: Regular rate. LUNGS: Show diminished breath sounds at the base. ABDOMEN: Soft, nontender to palpation without rebound or guarding. EXTREMITIES: Negative for clubbing, cyanosis, no edema. DERMATOLOGIC: No rashes. MUSCULOSKELETAL: No effusion. NEUROLOGIC: No change in exam. MEDICATIONS: Reviewed. IMAGING STUDIES: Reviewed. ASSESSMENT AND PLAN: 1. Nonoliguric acute kidney injury on top of chronic kidney disease with pervious baseline creatinin e around 1.3 to 1.4 mg/dL. Etiology of acute kidney injury is secondary to hemodynamics, volume depl etion. The patient's renal function appears to be stabilizing around a creatinine of 2.2 to 2.4 mg/d L. At this point, continue current treatment plan, supportive care and renally dose all medications. 2. Hypomagnesemia. Continue to monitor and replete as needed. 3. Anemia. Monitor hemoglobin and hematocrit levels. 4. Mineral bone disorder. Monitor calcium and phosphorus levels. 5. Hypertension. Continue current blood pressure regimen. 6. Urinary tract infection. The patient is completing antibiotic course. 7. Benign prostatic hypertrophy. Continue medical management. 8. Human immunodeficiency virus. Continue HAART therapy. 9. Clostridium difficile. Continue current antibiotic regimen. 10. Arrhythmia. Continue current medical management. Continue Eliquis. Follow up with cardiology. Dictated By: EFRAIN LEMOS DO NR/NTS Conf#: [id number] DID#: [id number] CC: SRINIVAS PARKER DO; PADMA VALDEZ MD; MAMTA CHILDS MD;*EndCC*
[2019-03-09 10:50] VITALS: BP 110/66; PULSE 66
--- NOTE | 2019-03-09 12:12 | PN ---
Date/Time of Note Date/Time of Note DATE: 03/09/19 TIME: 12:10 Subjective Patient with loose stools Objective Vital Signs Date Temp Pulse Resp B/P (MAP) Pulse Ox O2 O2 Flow FiO2 Time Delivery Rate 03/09/19 97.9 133 18 113/81 96 Room Air 07:00 (92) 03/08/19 2.0 08:00 Intake and Output 03/08/19 03/08/19 03/09/19 1515:00 23:00 07:00 IntakeIntake Total 580 ml 980 ml 300 ml OutputOutput Total 100 ml 500 ml 800 ml BalanceBalance 480 ml 480 ml -500 ml Exam sba transfer sba ambulation Results/Medications Result Diagram: 03/09/19 0645 03/09/19 0645 Results 24 hrs Laboratory Tests Test 03/09/19 06:45 White Blood Count 7.8 Red Blood Count 2.69 L Hemoglobin 8.7 L Hematocrit 26.2 L Mean Corpuscular Volume 97.4 Mean Corpuscular Hemoglobin 32.3 Mean Corpuscular Hemoglobin Concent 33.2 Red Cell Distribution Width 15.1 H Platelet Count 268 Mean Platelet Volume 9.5 Immature Granulocytes % 0.600 H Neutrophils % 62.8 Lymphocytes % 28.0 Monocytes % 6.8 Eosinophils % 1.2 Basophils % 0.6 Nucleated Red Blood Cells % 0.0 Immature Granulocytes # 0.050 H Neutrophils # 4.9 Lymphocytes # 2.2 Monocytes # 0.5 Eosinophils # 0.1 Basophils # 0.1 Nucleated Red Blood Cells # 0.0 Sodium Level 142 Potassium Level 4.2 Chloride Level 109 Carbon Dioxide Level 25 Anion Gap 8 Blood Urea Nitrogen 20 Creatinine 2.24 H Est Glomerular Filtrat Rate mL/min Glucose Level 98 Calcium Level 8.8 Phosphorus Level 4.2 Magnesium Level 1.9 Medications Current Medications Abacavir/ Lamivudine (Epzicom) 1 tab DAILY PO Last administered on 03/09/19at 08:26; Admin Dose 1 TAB; Start 03/05/19 at 09:00 Divalproex Sodium (Depakote Er) 500 mg BID PO Last administered on 03/09/19at 08:27; Admin Dose 500 MG; Start 03/05/19 at 09:00 Dutasteride (Avodart) 0.5 mg DAILY PO Last administered on 03/09/19at 08:25; Admin Dose 0.5 MG; Start 03/05/19 at 09:00 Miscellaneous Medication (Isentress) 400 mg BID PO Last administered on 03/09/19 08:26; Admin Dose 400 MG; Start 03/05/19 at 09:00 Ondansetron HCl (Zofran Inj) 4 mg Q4H PRN IV NAUSEA AND/OR VOMITING; Start 03/04/19 at 23:30 Acetaminophen (Tylenol Tab) 650 mg Q6H PRN PO MILD PAIN(1-3)OR ELEVATED TEMP; Start 03/05/19 at 00:00 Atorvastatin Calcium (Lipitor) 10 mg HS PO Last administered on 03/08/19 20:30; Admin Dose 10 MG; Start 03/05/19 at 21:00 Docusate Sodium (Colace) 100 mg BID PRN PO CONSTIPATION; Start 03/05/19 at 00:00 Famotidine (Pepcid) 20 mg DAILY PO Last administered on 03/09/19 08:24; Admin Dose 20 MG; Start 03/05/19 at 09:00 Magnesium Hydroxide (Milk Of Mag) 30 ml DAILY PRN PO CONSTIPATION; Start 03/05/19 at 00:00 Phenol (Cepastat Lozenge) 1 lozenge Q1H PRN [place] SORE THROAT; Start 03/05/19 at 00:00 Tramadol HCl (Ultram) 50 mg Q6H PRN PO MODERATE PAIN LEVEL 4-6; Start 03/05/19 at 00:00 Senna (Senokot) 1 tab HS PO Last administered on 03/05/19at 20:58; Admin Dose 1 TAB; Start 03/05/19 at 21:00 Lactulose (Enulose) 20 gm DAILY PRN PO CONSTIPATION; Start 03/05/19 at 00:00 Bisacodyl (Dulcolax Supp) 10 mg DAILY PRN [place] CONSTIPATION; Start 03/05/19 at 00:00 IV Flush (NS 3 ml) 3 ml Q8H and PRN adm IV ; Start 03/05/19 at 01:30 Metoprolol Tartrate (Lopressor) 25 mg DAILY PO Last administered on 03/09/19 08:26; Admin Dose 25 MG; Start 03/06/19 at 09:00 Amiodarone HCl (Cordarone) 200 mg DAILY PO Last administered on 03/09/19 08:25; Admin Dose 200 MG; Start 03/07/19 at 10:00 Lactobacillus Acidophilus/ Rhamnosus (Culturelle) 1 cap BID PO Last a dministered on 03/09/19 08:25; Admin Dose 1 CAP; Start 03/07/19 at 21:00 Apixaban (Eliquis) 2.5 mg BID PO Last administered on 03/09/19at 08:27; Admin Dose 2.5 MG; Start 03/07/19 at 11:30 Vancomycin HCl (Vancomycin Oral Syringe) 125 mg Q6 PO Last administered on 03/09/19 12:09; Admin Dose 125 MG; Start 03/08/19 at 15:00; Stop 03/15/19 at 14:59 Metronidazole (Flagyl) 500 mg Q8 PO Last administered on 03/09/19at 05:51; Admin Dose 500 MG; Start 03/08/19 at 22:00; Stop 03/19/19 at 21:59 Doxazosin Mesylate (Cardura) 2 mg HS PO ; Start 03/09/19 at 21:00 Quetiapine Fumarate (Seroquel) 25 mg HS PO ; Start 03/09/19 at 21:00 Assessment/Plan Additional Assessment/Plan rehab- Toxic metabolic encephalopathy. Rehab activities as tolerated GI- CDif colitis, on abx FEN- encourage po intake HIV positive. Dysarthria. BPH. Urinary tract infection- completed course Hypertension. MAMTA CHILDS MD Mar 09, 2019 12:12
--- NOTE | 2019-03-09 13:49 | PN ---
Date/Time of Note Date/Time of Note DATE: 03/09/19 TIME: 13:43 Assessment/Plan VTE Prophylaxis Risk score (from N[facility])>0 risk: 3 SCD applied (from [facility] [place] No SCD contraindicated: other Pharmacological prophylaxis: NA/contraindicated Pharm contraindication: low risk/ambulating Lines/Catheters IV Catheter Type [facility]from [facility] Saline Lock Urinary Cath still in place: No Assessment/Plan Hospital Course SUBJECTIVE: Diarrhea improved. OBJECTIVE: Vital signs-see below PHYSICAL EXAM: Constitutional: Adequately built,not in acute distress. HEENT: Head atraumatic and normocephalic. Eyes: Extraocular muscles intact. Anicteric sclerae. Pupils equal bilaterally, reactive to light. NECK: Supple without lymph node. CHEST: Clear and good breath sounds equally. No wheezing. No rhonchi. HEART: S1, S2. Regular rate and rhythm. ABDOMEN: Soft/non tender with no rebound tenderness. Bowel sounds were present. EXTREMITIES: No cyanosis, clubbing or edema. NEUROLOGIC:+Mild dysarthria. Alert and oriented x3. No focal deficit. No sensory deficit. PSYCHOSOCIAL: No signs of depression. INTEGUMENTARY: No open wounds. ASSESSMENT AND PLAN Dysarthria/gait disturbance -Questionable encephalopathy in HIV complicated by UTI -s/p neurology work-up. No acute focal GENERAL SUPERINTENDENT etiologies. -No LP studies recommended by neuro. f/u WNV serologies. -Continue PT/ST/OT C. difficile colitis -Diarrhea improving. -cont.vanco+flagyl Acute kidney injury on CKD -Renal function stabilizing.. -Being followed by mechanical applications engineer. Paroxysmal atrial fibrillation/flutter -Being followed by cardiology. -On eliquis/BB/amiodarone HIV -on HAART UTI -s/p abx. BPH -Continue Cardura Hypertension -Stable. -cont.antihypertensives Dyslipidemia -On statin Anxiety/sleep disorders -Continue Seroquel DVT prophylaxis: SCDs Patient was seen in collaboration with Dr. Bush Result Diagram: 03/09/19 0645 03/09/19 0645 Results 24hrs Laboratory Tests Test 03/09/19 06:45 White Blood Count 7.8 Red Blood Count 2.69 L Hemoglobin 8.7 L Hematocrit 26.2 L Mean Corpuscular Volume 97.4 Mean Corpuscular Hemoglobin 32.3 Mean Corpuscular Hemoglobin Concent 33.2 Red Cell Distribution Width 15.1 H Platelet Count 268 Mean Platelet Volume 9.5 Immature Granulocytes % 0.600 H Neutrophils % 62.8 Lymphocytes % 28.0 Monocytes % 6.8 Eosinophils % 1.2 Basophils % 0.6 Nucleated Red Blood Cells % 0.0 Immature Granulocytes # 0.050 H Neutrophils # 4.9 Lymphocytes # 2.2 Monocytes # 0.5 Eosinophils # 0.1 Basophils # 0.1 Nucleated Red Blood Cells # 0.0 Sodium Level 142 Potassium Level 4.2 Chloride Level 109 Carbon Dioxide Level 25 Anion Gap 8 Blood Urea Nitrogen 20 Creatinine 2.24 H Est Glomerular Filtrat Rate mL/min Glucose Level 98 Calcium Level 8.8 Phosphorus Level 4.2 Magnesium Level 1.9 Exam/Review of Systems Exam Vitals Vital Signs Date Temp Pulse Resp B/P (MAP) Pulse Ox O2 O2 Flow FiO2 Time Delivery Rate 03/09/19 97.9 133 18 113/81 96 Room Air 07:00 (92) 03/08/19 2.0 08:00 Intake and Output 03/08/19 03/08/19 03/09/19 1515:00 23:00 07:00 IntakeIntake Total 580 ml 980 ml 300 ml OutputOutput Total 100 ml 500 ml 800 ml BalanceBalance 480 ml 480 ml -500 ml Results Results 24hrs Laboratory Tests Test 03/09/19 06:45 White Blood Count 7.8 Red Blood Count 2.69 L Hemoglobin 8.7 L Hematocrit 26.2 L Mean Corpuscular Volume 97.4 Mean Corpuscular Hemoglobin 32.3 Mean Corpuscular Hemoglobin Concent 33.2 Red Cell Distribution Width 15.1 H Platelet Count 268 Mean Platelet Volume 9.5 Immature Granulocytes % 0.600 H Neutrophils % 62.8 Lymphocytes % 28.0 Monocytes % 6.8 Eosinophils % 1.2 Basophils % 0.6 Nucleated Red Blood Cells % 0.0 Immature Granulocytes # 0.050 H Neutrophils # 4.9 Lymphocytes # 2.2 Monocytes # 0.5 Eosinophils # 0.1 Basophils # 0.1 Nucleated Red Blood Cells # 0.0 Sodium Level 142 Potassium Level 4.2 Chloride Level 109 Carbon Dioxide Level 25 Anion Gap 8 Blood Urea Nitrogen 20 Creatinine 2.24 H Est Glomerular Filtrat Rate mL/min Glucose Level 98 Calcium Level 8.8 Phosphorus Level 4.2 Magnesium Level 1.9 Medications Medication Current Medications Abacavir/ Lamivudine (Epzicom) 1 tab DAILY PO Last administered on 03/09/19 08:26; Admin Dose 1 TAB; Start 03/05/19 at 09:00 Divalproex Sodium (Depakote Er) 500 mg BID PO Last administered on 03/09/19 08:27; Admin Dose 500 MG; Start 03/05/19 at 09:00 Dutasteride (Avodart) 0.5 mg DAILY PO Last administered on 03/09/19 08:25; Admin Dose 0.5 MG; Start 03/05/19 at 09:00 Miscellaneous Medication (Isentress) 400 mg BID PO Last administered on 08:26; Admin Dose 400 MG; Start 03/05/19 at 09:00 Ondansetron HCl (Zofran Inj) 4 mg Q4H PRN IV NAUSEA AND/OR VOMITING; Start 03/04/19 at 23:30 Acetaminophen (Tylenol Tab) 650 mg Q6H PRN PO MILD PAIN(1-3)OR ELEVATED TEMP; Start 03/05/19 at 00:00 Atorvastatin Calcium (Lipitor) 10 mg HS PO Last administered on 03/08/19 20:30; Admin Dose 10 MG; Start 03/05/19 at 21:00 Docusate Sodium (Colace) 100 mg BID PRN PO CONSTIPATION; Start 03/05/19 at 00:00 Famotidine (Pepcid) 20 mg DAILY PO Last administered on 03/09/19 08:24; Admin Dose 20 MG; Start 03/05/19 at 09:00 Magnesium Hydroxide (Milk Of Mag) 30 ml DAILY PRN PO CONSTIPATION; Start 03/05/19 at 00:00 Phenol (Cepastat Lozenge) 1 lozenge Q1H PRN [place] SORE THROAT; Start 03/05/19 at 00:00 Tramadol HCl (Ultram) 50 mg Q6H PRN PO MODERATE PAIN LEVEL 4-6; Start 03/05/19 at 00:00 Senna (Senokot) 1 tab HS PO Last administered on 03/05/19at 20:58; Admin Dose 1 TAB; Start 03/05/19 at 21:00 Lactulose (Enulose) 20 gm DAILY PRN PO CONSTIPATION; Start 03/05/19 at 00:00 Bisacodyl (Dulcolax Supp) 10 mg DAILY PRN [place] CONSTIPATION; Start 03/05/19 at 00:00 IV Flush (NS 3 ml) 3 ml Q8H and PRN adm IV ; Start 03/05/19 at 01:30 Metoprolol Tartrate (Lopressor) 25 mg DAILY PO Last administered on 03/09/19 08:26; Admin Dose 25 MG; Start 03/06/19 at 09:00 Amiodarone HCl (Cordarone) 200 mg DAILY PO Last administered on 03/09/19at 08:25; Admin Dose 200 MG; Start 03/07/19 at 10:00 Lactobacillus Acidophilus/ Rhamnosus (Culturelle) 1 cap BID PO Last administered on 03/09/19 08:25; Admin Dose 1 CAP; Start 03/07/19 at 21:00 Apixaban (Eliquis) 2.5 mg BID PO Last administered on 03/09/19at 08:27; Admin Dose 2.5 MG; Start 03/07/19 at 11:30 Vancomycin HCl (Vancomycin Oral Syringe) 125 mg Q6 PO Last administered on 03/09/19 12:09; Admin Dose 125 MG; Start 03/08/19 at 15:00; Stop 03/15/19 at 14:59 Metronidazole (Flagyl) 500 mg Q8 PO Last administered on 03/09/19at 05:51; Admin Dose 500 MG; Start 03/08/19 at 22:00; Stop 03/19/19 at 21:59 Doxazosin Mesylate (Cardura) 2 mg HS PO ; Start 03/09/19 at 21:00 Quetiapine Fumarate (Seroquel) 25 mg HS PO ; Start 03/09/19 at 21:00 AGNES LAMA NP Mar 09, 2019 13:49
[2019-03-09 14:00] VITALS: BP 95/60; PULSE 64; RESP 18
[2019-03-09] MEDS: ACETAMINOPHEN 325 MG TAB PO PRN ×2 (15:45→22:56)
--- NOTE | 2019-03-09 18:41 | CONS ---
Assessment/Plan Assessment/Plan Hospital Course (Demo Recall) Atrial flutter Preserved EF SIRS Blood pressure remains in the lower side, would DC doxazosin Decreased dose of metoprolol and adjust to twice daily Increase amiodarone to twice daily Consultation Date/Type/Reason Admit Date/Time Mar 04, 2019 at 22:00 Initial Consult Date Type of Consult Cardiology Date/Time of Note DATE: 03/09/19 TIME: 18:39 24 HR Interval Summary Free Text/Dictation Denies dizziness, palpitations, chest pain or shortness of breath Exam/Review of Systems Vital Signs Vitals Vital Signs Date Temp Pulse Resp B/P (MAP) Pulse Ox O2 O2 Flow FiO2 Time Delivery Rate 03/09/19 98.1 64 18 95/60 (72) 92 Room Air 14:00 03/08/19 2.0 08:00 Intake and Output 03/08/19 03/08/19 03/09/19 1515:00 23:00 07:00 IntakeIntake Total 580 ml 980 ml 300 ml OutputOutput Total 100 ml 500 ml 800 ml BalanceBalance 480 ml 480 ml -500 ml Exam Constitutional: alert, oriented (No apparent distress) Head: normocephalic Respiratory: other (Coarse breath sounds bilaterally, no wheezing) Cardiovascular: regular rate and rhythm (With frequent irregularities) Gastrointestinal: soft, non-tender, bowel sounds Extremities: edema (Trace) Labs Result Diagram: 03/09/19 0645 03/09/19 0645 Results 24hrs Laboratory Tests Test 03/09/19 06:45 White Blood Count 7.8 Red Blood Count 2.69 L Hemoglobin 8.7 L Hematocrit 26.2 L Mean Corpuscular Volume 97.4 Mean Corpuscular Hemoglobin 32.3 Mean Corpuscular Hemoglobin Concent 33.2 Red Cell Distribution Width 15.1 H Platelet Count 268 Mean Platelet Volume 9.5 Immature Granulocytes % 0.600 H Neutrophils % 62.8 Lymphocytes % 28.0 Monocytes % 6.8 Eosinophils % 1.2 Basophils % 0.6 Nucleated Red Blood Cells % 0.0 Immature Granulocytes # 0.050 H Neutrophils # 4.9 Lymphocytes # 2.2 Monocytes # 0.5 Eosinophils # 0.1 Basophils # 0.1 Nucleated Red Blood Cells # 0.0 Sodium Level 142 Potassium Level 4.2 Chloride Level 109 Carbon Dioxide Level 25 Anion Gap 8 Blood Urea Nitrogen 20 Creatinine 2.24 H Est Glomerular Filtrat Rate mL/min Glucose Level 98 Calcium Level 8.8 Phosphorus Level 4.2 Magnesium Level 1.9 Medications Medications Current Medications Abacavir/ Lamivudine (Epzicom) 1 tab DAILY PO Last administered on 03/09/19 08:26; Admin Dose 1 TAB; Start 03/05/19 at 09:00 Divalproex Sodium (Depakote Er) 500 mg BID PO Last administered on 03/09/19 08:27; Admin Dose 500 MG; Start 03/05/19 at 09:00 Dutasteride (Avodart) 0.5 mg DAILY PO Last administered on 03/09/19 08:25; Admin Dose 0.5 MG; Start 03/05/19 at 09:00 Miscellaneous Medication (Isentress) 400 mg BID PO Last administered on 03/09/19 08:26; Admin Dose 400 MG; Start 03/05/19 at 09:00 Ondansetron HCl (Zofran Inj) 4 mg Q4H PRN IV NAUSEA AND/OR VOMITING; Start 03/04/19 at 23:30 Acetaminophen (Tylenol Tab) 650 mg Q6H PRN PO MILD PAIN(1-3)OR ELEVATED TEMP Last administered on 03/09/19at 15:45; Admin Dose 650 MG; Start 03/05/19 at 00:00 Atorvastatin Calcium (Lipitor) 10 mg HS PO Last administered on 03/08/19 20:30; Admin Dose 10 MG; Start 03/05/19 at 21:00 Docusate Sodium (Colace) 100 mg BID PRN PO CONSTIPATION; Start 03/05/19 at 00:00 Famotidine (Pepcid) 20 mg DAILY PO Last administered on 03/09/19 08:24; Admin Dose 20 MG; Start 03/05/19 at 09:00 Magnesium Hydroxide (Milk Of Mag) 30 ml DAILY PRN PO CONSTIPATION; Start 03/05/19 at 00:00 Phenol (Cepastat Lozenge) 1 lozenge Q1H PRN MT SORE THROAT; Start 03/05/19 at 00:00 Tramadol HCl (Ultram) 50 mg Q6H PRN PO MODERATE PAIN LEVEL 4-6; Start 03/05/19 at 00:00 Senna (Senokot) 1 tab HS PO Last administered on 6/21/19at 20:58; Admin Dose 1 TAB; Start 03/05/19 at 21:00 Lactulose (Enulose) 20 gm DAILY PRN PO CONSTIPATION; Start 03/05/19 at 00:00 Bisacodyl (Dulcolax Supp) 10 mg DAILY PRN [place] CONSTIPATION; Start 03/05/19 at 00:00 IV Flush (NS 3 ml) 3 ml Q8H and PRN adm IV ; Start 03/05/19 at 01:30 Metoprolol Tartrate (Lopressor) 25 mg DAILY PO Last administered on 03/09/19 08:26; Admin Dose 25 MG; Start 03/06/19 at 09:00 Amiodarone HCl (Cordarone) 200 mg DAILY PO Last administered on 03/09/19 08:25; Admin Dose 200 MG; Start 03/07/19 at 10:00 Lactobacillus Acidophilus/ Rhamnosus (Culturelle) 1 cap BID PO Last administered on 03/09/19 08:25; Admin Dose 1 CAP; Start 03/07/19 at 21:00 Apixaban (Eliquis) 2.5 mg BID PO Last administered on 03/09/19 08:27; Admin Dose 2.5 MG; Start 03/07/19 at 11:30 Vancomycin HCl (Vancomycin Oral Syringe) 125 mg Q6 PO Last administered on 03/09/19 12:09; Admin Dose 125 MG; Start 03/08/19 at 15:00; Stop 03/15/19 at 14:59 Metronidazole (Flagyl) 500 mg Q8 PO Last administered on 03/09/19at 14:10; Admin Dose 500 MG; Start 03/08/19 at 22:00; Stop 03/19/19 at 21:59 Doxazosin Mesylate (Cardura) 2 mg HS PO ; Start 03/09/19 at 21:00 Quetiapine Fumarate (Seroquel) 25 mg HS PO ; Start 03/09/19 at 21:00 Benny Hernandez DO Mar 09, 2019 18:41
[2019-03-09] MEDS: QUETIAPINE 25 MG TAB PO SCH (20:50)
[2019-03-09] MEDS: ATORVASTATIN 10 MG TAB PO SCH (20:50)
[2019-03-09] MEDS: SENNA TAB PO SCH (21:00)
[2019-03-09] MEDS ORDERED: DOXAZOSIN 4 MG TAB PO SCH (21:00)
[2019-03-09 22:01] VITALS: BP 105/67; RESP 18
[2019-03-09 23:50] VITALS: BP 105/66; PULSE 91
[2019-03-10] VITALS (7 sets, daily range): BP systolic 79–111; BP diastolic 60–73; PULSE 64–131; RESP 18
[2019-03-10] MEDS: metroNIDAZOLE 500 MG TAB PO SCH ×3 (05:47→21:39)
[2019-03-10] MEDS: VANCOMYCIN HCL 250 MG/5ML POSYG PO SCH ×4 (05:47→23:27)
[2019-03-10] MEDS: ABACAVIR/LAMIVUDINE TAB PO SCH (08:15)
[2019-03-10] MEDS: RALTEGRAVIR 400 MG TAB PO SCH ×2 (08:16→20:53)
[2019-03-10] MEDS: APIXABAN 5 MG TABLET PO SCH ×2 (08:16→20:53)
[2019-03-10] MEDS: FAMOTIDINE 20 MG TAB PO SCH (08:16)
[2019-03-10] MEDS: LACTOBACILLUS RHAMNOSUS CAP PO SCH ×2 (08:16→20:53)
[2019-03-10] MEDS: AMIODARONE 200 MG TAB PO SCH ×2 (08:17→20:59)
[2019-03-10] MEDS: DIVALPROEX (ER) 500 MG TAB PO SCH ×2 (08:18→20:53)
[2019-03-10] MEDS: METOPROLOL 25 MG TAB PO SCH ×2 (08:18→21:06)
[2019-03-10] MEDS: DUTASTERIDE 0.5 MG CAP PO SCH (08:24)
--- NOTE | 2019-03-10 08:37 | PN ---
DATE: 03/10/2019 SUBJECTIVE: The patient is stable. No events overnight. OBJECTIVE: VITAL SIGNS: Blood pressure is 108/60, respiration 18, pulse 76, temperature 98.0. HEENT: Head is normocephalic. NECK: Supple. HEART: Regular rate. LUNGS: Show diminished breath sounds at the base. ABDOMEN: Soft, nontender to palpation without rebound or guarding. EXTREMITIES: Negative for clubbing, cyanosis, no edema. DERMATOLOGIC: No rashes. MUSCULOSKELETAL: No joint effusion. NEUROLOGIC: No change in exam. MEDICATIONS: The patient's medications have been reviewed. LABORATORY DATA: Has been reviewed. IMAGING STUDIES: Reviewed. ASSESSMENT AND PLAN: 1. Nonoliguric acute kidney injury on top of chronic kidney disease with previous baseline creatinin e 1.3 to 1.4 mg/dL. The etiology of VIRY is secondary to hemodynamics, volume depletion. The patient 's renal function has slowly been improving. Continue current treatment plan and supportive care and renally dose all meds. 2. Hypomagnesemia. Continue to monitor and replete as needed. 3. Anemia. Monitor hemoglobin and hematocrit levels. 4. Mineral bone disorder, monitor calcium and phosphorus levels. 5. Hypertension. Continue current blood pressure regimen. 6. Urinary tract infection. The patient is completing antibiotic course. 7. Benign prostatic hypertrophy. Continue medical management. 8. Human immunodeficiency virus. Continue HAART therapy. 9. Clostridium difficile. Continue antibiotic regimen. 10. Dysrythmia. Continue medical management and followup with cardiology. Dictated By: EFRAIN LEMOS DO NR/NTS Conf#: [id number] DID#: [id number] CC: PADMA VALDEZ MD; SRINIVAS PARKER DO; MAMTA CHILDS MD;*EndCC*
[2019-03-10] MEDS ORDERED: SOD CHLORIDE 0.9% 500 ML IV ONE (11:00)
--- NOTE | 2019-03-10 11:02 | PN ---
Date/Time of Note Date/Time of Note DATE: 03/10/19 TIME: 11:01 Assessment/Plan VTE Prophylaxis Risk score (from Ns)>0 risk: 4 SCD applied (from [facility] [place]): No SCD contraindicated: other Pharmacological prophylaxis: NA/contraindicated Pharm contraindication: low risk/ambulating Lines/Catheters IV [facility]from [facility] Saline Lock Urinary Cath still in place: No Assessment/Plan Hospital Course SUBJECTIVE: Patient with hypotensive episodes with dizziness. OBJECTIVE: Vital signs-see below PHYSICAL EXAM: Constitutional: Adequately built,not in acute distress. HEENT: Head atraumatic and normocephalic. Eyes: Extraocular muscles intact. A nicteric sclerae. Pupils equal bilaterally, reactive to light. NECK: Supple without lymph node. CHEST: Clear and good breath sounds equally. No wheezing. No rhonchi. HEART: S1, S2. Regular rate and rhythm. ABDOMEN: Soft/non tender with no rebound tenderness. Bowel sounds were present. EXTREMITIES: No cyanosis, clubbing or edema. NEUROLOGIC:+Mild dysarthria. Alert and oriented x3. No focal deficit. No sensory deficit. PSYCHOSOCIAL: No signs of depression. INTEGUMENTARY: No open wounds. ASSESSMENT AND PLAN Dysarthria/gait disturbance -Questionable encephalopathy in HIV complicated by UTI -s/p neurology work-up. No acute focal [employer]ST [employer] DIRECTOR etiologies. -No LP studies recommended by neuro. f/u WNV serologies. -Continue PT/ST/OT C. difficile colitis -Diarrhea improving. -cont.vanco+flagyl Acute kidney injury on CKD -Renal function stabilizing.. -Being followed by technical assistance consultant. Paroxysmal atrial fibrillation/flutter -Being followed by cardiology. -On eliquis/BB/amiodarone HIV -on HAART UTI -s/p abx. BPH -Cardura has been stopped secondary to hypotension. Hypertension -Patient now on hypotensive side. Cardiogram has been discontinued. Will give fluid hydration. Follow-up cardiology recommendation on further adjustment of BP meds. Dyslipidemia -On statin Anxiety/sleep disorders -Continue Seroquel DVT prophylaxis: SCDs Patient was seen in collaboration with Dr. Bush Result Diagram: 03/09/1945 03/09/1945 Exam/Review of Systems Exam Vitals Vital Signs Date Temp Pulse Resp B/P (MAP) Pulse Ox O2 O2 Flow FiO2 Time Delivery Rate 03/10/19 83 85/65 (72) 10:08 03/10/19 97.5 18 95 Room Air 07:00 03/08/19 2.0 08:00 Intake and Output 03/09/19 03/09/19 03/10/19 1515:00 23:00 07:00 IntakeIntake Total 1200 ml 1150 ml OutputOutput Total 900 ml 900 ml BalanceBalance 300 ml 250 ml Medications Medication Current Medications Abacavir/ Lamivudine (Epzicom) 1 tab DAILY PO Last administered on 03/10/19 08:15; Admin Dose 1 TAB; Start 03/05/19 at 09:00 Divalproex Sodium (Depakote Er) 500 mg BID PO Last administered on 03/10/19 08:18; Admin Dose 500 MG; Start 03/05/19 at 09:00 Dutasteride (Avodart) 0.5 mg DAILY PO Last administered on 03/10/19 08:24; Admin Dose 0.5 MG; Start 03/05/19 at 09:00 Miscellaneous Medication (Isentress) 400 mg BID PO Last administered on 03/10/19 08:16; Admin Dose 400 MG; Start 03/05/19 at 09:00 Ondansetron HCl (Zofran Inj) 4 mg Q4H PRN IV NAUSEA AND/OR VOMITING; Start 03/04/19 at 23:30 Acetaminophen (Tylenol Tab) 650 mg Q6H PRN PO MILD PAIN(1-3)OR ELEVATED TEMP Last administered on 03/09/19at 22:56; Admin Dose 650 MG; Start 03/05/19 at 00:00 Atorvastatin Calcium (Lipitor) 10 mg HS PO Last administered on 03/09/19at 20:50; Admin Dose 10 MG; Start 03/05/19 at 21:00 Docusate Sodium (Colace) 100 mg BID PRN PO CONSTIPATION; Start 03/05/19 at 00:00 Famotidine (Pepcid) 20 mg DAILY PO Last administered on 03/10/19 08:16; Admin Dose 20 MG; Start 03/05/19 at 09:00 Magnesium Hydroxide (Milk Of Mag) 30 ml DAILY PRN PO CONSTIPATION; Start 03/05/19 at 00:00 Phenol (Cepastat Lozenge) 1 lozenge Q1H PRN MT SORE THROAT; Start 03/05/19 at 00:00 Tramadol HCl (Ultram) 50 mg Q6H PRN PO MODERATE PAIN LEVEL 4-6; Start 03/05/19 at 00:00 Senna (Senokot) 1 tab HS PO Last administered on 03/05/19at 20:58; Admin Dose 1 TAB; Start 03/05/19 at 21:00 Lactulose (Enulose) 20 gm DAILY PRN PO CONSTIPATION; Start 03/05/19 at 00:00 Bisacodyl (Dulcolax Supp) 10 mg DAILY PRN [place] CONSTIPATION; Start 03/05/19 at 00:00 IV Flush (NS 3 ml) 3 ml Q8H and PRN adm IV ; Start 03/05/19 at 01:30 Lactobacillus Acidophilus/ Rhamnosus (Culturelle) 1 cap BID PO Last administered on 03/10/19 08:16; Admin Dose 1 CAP; Start 03/07/19 at 21:00 Apixaban (Eliquis) 2.5 mg BID PO Last administered on 03/10/19at 08:16; Admin Dose 2.5 MG; Start 03/07/19 at 11:30 Vancomycin HCl (Vancomycin Oral Syringe) 125 mg Q6 PO Last administered on 03/10/19at 05:47; Admin Dose 125 MG; Start 03/08/19 at 15:00; Stop 03/15/19 at 14:59 Metronidazole (Flagyl) 500 mg Q8 PO Last administered on 03/10/19at 05:47; Admin Dose 500 MG; Start 03/08/19 at 22:00; Stop 03/19/19 at 21:59 Quetiapine Fumarate (Seroquel) 25 mg HS PO Last administered on 03/09/19at 20:50; Admin Dose 25 MG; Start 03/09/19 at 21:00 Amiodarone HCl (Cordarone) 200 mg BID PO Last administered on 03/10/19 08:17; Admin Dose 200 MG; Start 03/09/19 at 21:00 Metoprolol Tartrate (Lopressor) 12.5 mg BID PO Last administered on 03/10/19 08:18; Admin Dose 12.5 MG; Start 03/09/19 at 21:00 AGNES LAMA NP Mar 10, 2019 11:02
--- NOTE | 2019-03-10 11:23 | PN ---
Date/Time of Note Date/Time of Note DATE: 03/10/19 TIME: 11:22 Subjective Patient reports feeling dizzy this morning Objective Vital Signs Date Temp Pulse Resp B/P (MAP) Pulse Ox O2 O2 Flow FiO2 Time Delivery Rate 03/10/19 83 85/65 (72) 10:08 03/10/19 97.5 18 95 Room Air 07:00 03/08/19 2.0 08:00 Intake and Output 03/09/19 03/09/19 03/10/19 1515:00 23:00 07:00 IntakeIntake Total 1200 ml 1150 ml OutputOutput Total 900 ml 900 ml BalanceBalance 300 ml 250 ml Exam pulm-cta abd-soft cga ambulation Results/Medications Result Diagram: 03/09/1964403/09/19644 Medications Current Medications Abacavir/ Lamivudine (Epzicom) 1 tab DAILY PO Last administered on 03/10/19at 08:15; Admin Dose 1 TAB; Start 03/05/19 at 09:00 Divalproex Sodium (Depakote Er) 500 mg BID PO Last administered on 03/10/19at 08:18; Admin Dose 500 MG; Start 03/05/19 at 09:00 Dutasteride (Avodart) 0.5 mg DAILY PO Last administered on 03/10/19 08:24; Admin Dose 0.5 MG; Start 03/05/19 at 09:00 Miscellaneous Medication (Isentress) 400 mg BID PO Last administered on 03/10/19at 08:16; Admin Dose 400 MG; Start 03/05/19 at 09:00 Ondansetron HCl (Zofran Inj) 4 mg Q4H PRN IV NAUSEA AND/OR VOMITING; Start 03/04/19 at 23:30 Acetaminophen (Tylenol Tab) 650 mg Q6H PRN PO MILD PAIN(1-3)OR ELEVATED TEMP Last administered on 03/09/19at 22:56; Admin Dose 650 MG; Start 03/05/19 at 00:00 Atorvastatin Calcium (Lipitor) 10 mg HS PO Last administered on 03/09/19at 20:50; Admin Dose 10 MG; Start 03/05/19 at 21:00 Docusate Sodium (Colace) 100 mg BID PRN PO CONSTIPATION; Start 03/05/19 at 00:00 Famotidine (Pepcid) 20 mg DAILY PO Last administered on 03/10/19 08:16; Admin Dose 20 MG; Start 03/05/19 at 09:00 Magnesium Hydroxide (Milk Of Mag) 30 ml DAILY PRN PO CONSTIPATION; Start 03/05/19 at 00:00 Phenol (Cepastat Lozenge) 1 lozenge Q1H PRN MT SORE THROAT; Start 03/05/19 at 00:00 Tramadol HCl (Ultram) 50 mg Q6H PRN PO MODERATE PAIN LEVEL 4-6; Start 03/05/19 at 00:00 Senna (Senokot) 1 tab HS PO Last administered on 03/05/19 20:58; Admin Dose 1 TAB; Start 03/05/19 at 21:00 Lactulose (Enulose) 20 gm DAILY PRN PO CONSTIPATION; Start 03/05/19 at 00:00 Bisacodyl (Dulcolax Supp) 10 mg DAILY PRN [place] CONSTIPATION; Start 03/05/19 at 00:00 IV Flush (NS 3 ml) 3 ml Q8H and PRN adm IV ; Start 03/05/19 at 01:30 Lactobacillus Acidophilus/ Rhamnosus (Culturelle) 1 cap BID PO Last administered on 03/10/19 08:16; Admin Dose 1 CAP; Start 03/07/19 at 21:00 Apixaban (Eliquis) 2.5 mg BID PO Last administered on 03/10/19 08:16; Admin Dose 2.5 MG; Start 03/07/19 at 11:30 Vancomycin HCl (Vancomycin Oral Syringe) 125 mg Q6 PO Last administered on 03/10/19 05:47; Admin Dose 125 MG; Start 03/08/19 at 15:00; Stop 03/15/19 at 14:59 Metronidazole (Flagyl) 500 mg Q8 PO Last administered on 03/10/19 05:47; Admin Dose 500 MG; Start 03/08/19 at 22:00; Stop 03/19/19 at 21:59 Quetiapine Fumarate (Seroquel) 25 mg HS PO Last administered on 03/09/19 20:50; Admin Dose 25 MG; Start 03/09/19 at 21:00 Amiodarone HCl (Cordarone) 200 mg BID PO Last administered on 6/26/19at 08:17; Admin Dose 200 MG; Start 03/09/19 at 21:00 Metoprolol Tartrate (Lopressor) 12.5 mg BID PO Last administered on 03/10/19at 08:18; Admin Dose 12.5 MG; Start 03/09/19 at 21:00 Sodium Chloride 500 ml @ 500 mls/hr Q1H ONCE IV Last administered on 03/10/19at 11:12; Admin Dose 500 MLS/HR; Start 03/10/19 at 11:00; Stop 03/10/19 at 11:59 Assessment/Plan Additional Assessment/Plan rehab- Toxic metabolic encephalopathy. Continue activities as tolerated GI- CDif colitis, on abx FEN- encourage po intake, gentle hydration given the loose stools and dizziness HIV positive. Dysarthria. BPH. Urinary tract infection- completed course Hypertension. MAMTA CHILDS MD Mar 10, 2019 11:23
--- NOTE | 2019-03-10 11:33 | CONS ---
Assessment/Plan Assessment/Plan Hospital Course (Demo Recall) Atrial flutter Preserved EF SIRS Labile blood pressure Blood pressure remains in the lower side, I will adjust holding parameters for metoprolol Continue amiodarone as tolerated Continue anticoagulation as tolerated Consultation Date/Type/Reason Admit Date/Time Mar 04, 2019 at 22:00 Initial Consult Date Type of Consult Cardiology Date/Time of Note DATE: 03/10/19 TIME: 11:32 24 HR Interval Summary Free Text/Dictation No shortness of breath, chest pain or palpitations Exam/Review of Systems Vital Signs Vitals Vital Signs Date Temp Pulse Resp B/P (MAP) Pulse Ox O2 O2 Flow FiO2 Time Delivery Rate 03/10/19 83 85/65 (72) 10:08 03/10/19 97.5 18 95 Room Air 07:00 03/08/19 2.0 08:00 Intake and Output 03/09/19 03/09/19 03/10/19 1515:00 23:00 07:00 IntakeIntake Total 1200 ml 1150 ml OutputOutput Total 900 ml 900 ml BalanceBalance 300 ml 250 ml Exam Constitutional: alert, oriented (No apparent distress) Respiratory: other (Coarse breath sounds bilaterally, no wheezing) Cardiovascular: irregular rhythm (S1-S2 heard) Gastrointestinal: soft, non-tender, bowel sounds Extremities: other (No significant edema) Labs Result Diagram: 03/09/1945 03/09/19 0645 Medications Medications Current Medications Abacavir/ Lamivudine (Epzicom) 1 tab DAILY PO Last administered on 03/10/19at 08:15; Admin Dose 1 TAB; Start 03/05/19 at 09:00 Divalproex Sodium (Depakote Er) 500 mg BID PO Last administered on 03/10/19at 08:18; Admin Dose 500 MG; Start 03/05/19 at 09:00 Dutasteride (Avodart) 0.5 mg DAILY PO Last administered on 03/10/19at 08:24; Admin Dose 0.5 MG; Start 03/05/19 at 09:00 Miscellaneous Medication (Isentress) 400 mg BID PO Last administered on 03/10/19at 08:16; Admin Dose 400 MG; Start 03/05/19 at 09:00 Ondansetron HCl (Zofran Inj) 4 mg Q4H PRN IV NAUSEA AND/OR VOMITING; Start 03/04/19 at 23:30 Acetaminophen (Tylenol Tab) 650 mg Q6H PRN PO MILD PAIN(1-3)OR ELEVATED TEMP Last administered on 03/09/19at 22:56; Admin Dose 650 MG; Start 03/05/19 at 00:00 Atorvastatin Calcium (Lipitor) 10 mg HS PO Last administered on 03/09/19at 20:50; Admin Dose 10 MG; Start 03/05/19 at 21:00 Docusate Sodium (Colace) 100 mg BID PRN PO CONSTIPATION; Start 03/05/19 at 00:00 Famotidine (Pepcid) 20 mg DAILY PO Last administered on 03/10/19at 08:16; Admin Dose 20 MG; Start 03/05/19 at 09:00 Magnesium Hydroxide (Milk Of Mag) 30 ml DAILY PRN PO CONSTIPATION; Start 03/05/19 at 00:00 Phenol (Cepastat Lozenge) 1 lozenge Q1H PRN MT SORE THROAT; Start 03/05/19 at 00:00 Tramadol HCl (Ultram) 50 mg Q6H PRN PO MODERATE PAIN LEVEL 4-6; Start 03/05/19 at 00:00 Senna (Senokot) 1 tab HS PO Last administered on 03/05/19at 20:58; Admin Dose 1 TAB; Start 03/05/19 at 21:00 Lactulose (Enulose) 20 gm DAILY PRN PO CONSTIPATION; Start 03/05/19 at 00:00 Bisacodyl (Dulcolax Supp) 10 mg DAILY PRN [place] CONSTIPATION; Start 03/05/19 at 00:00 IV Flush (NS 3 ml) 3 ml Q8H and PRN adm IV ; Start 03/05/19 at 01:30 Lactobacillus Acidophilus/ Rhamnosus (Culturelle) 1 cap BID PO Last administered on 03/10/19at 08:16; Admin Dose 1 CAP; Start 03/07/19 at 21:00 Apixaban (Eliquis) 2.5 mg BID PO Last administered on 03/10/19at 08:16; Admin Dose 2.5 MG; Start 03/07/19 at 11:30 Vancomycin HCl (Vancomycin Oral Syringe) 125 mg Q6 PO Last administered on 03/10/19at 05:47; Admin Dose 125 MG; Start 03/08/19 at 15:00; Stop 03/15/19 at 14:59 Metronidazole (Flagyl) 500 mg Q8 PO Last administered on 03/10/19at 05:47; Admin Dose 500 MG; Start 03/08/19 at 22:00; Stop 03/19/19 at 21:59 Quetiapine Fumarate (Seroquel) 25 mg HS PO Last administered on 03/09/19at 20:50; Admin Dose 25 MG; Start 03/09/19 at 21:00 Amiodarone HCl (Cordarone) 200 mg BID PO Last administered on 03/10/19at 08:17; Admin Dose 200 MG; Start 03/09/19 at 21:00 Metoprolol Tartrate (Lopressor) 12.5 mg BID PO Last administered on 03/10/19at 08:18; Admin Dose 12.5 MG; Start 03/09/19 at 21:00 Sodium Chloride 500 ml @ 500 mls/hr Q1H ONCE IV Last administered on 03/10/19at 11:12; Admin Dose 500 MLS/HR; Start 03/10/19 at 11:00; Stop 03/10/19 at 11:59 Benny Hernandez DO Mar 10, 2019 11:33
[2019-03-10] MEDS: QUETIAPINE 25 MG TAB PO SCH (20:52)
[2019-03-10] MEDS: ATORVASTATIN 10 MG TAB PO SCH (20:53)
[2019-03-10] MEDS: SENNA TAB PO SCH (21:00)
[2019-03-10] MEDS ORDERED: QUETIAPINE 25 MG TAB PO ONE (22:00)
[2019-03-10] MEDS: ACETAMINOPHEN 325 MG TAB PO PRN (23:11)
--- NOTE | 2019-03-11 01:28 | CONS ---
DATE OF ADMISSION: 03/04/2019 DATE OF CONSULTATION: 03/10/2019 TYPE OF CONSULTATION: Psychological REFERRING PHYSICIAN: Mamta Hooper MD CONSULTING PSYCHOLOGIST: Jairo Hicks, PhD REASON FOR CONSULTATION: Consultation was requested by Dr. Lara Hooper in order to evaluate the co gnitive and emotional functioning of this patient related to his present medical condition. HISTORY OF PRESENT ILLNESS: The patient is a 73-year-old male. The patient has history of numerous medical problems including HIV, BPH, cardiac arrhythmia and hypertension. The patient was admitted w ith falls, dysarthria and a urinary tract infection. The patient was presumed to have a toxic metabo lic encephalopathy. The patient was cleared medically and then sent to the acute rehabilitation unit for acute multidisciplinary rehabilitation. FAMILY/SOCIAL HISTORY: The patient lives in an apartment by himself. The patient reports that he wa s to return there after discharge. MEDICATIONS: The patient is currently on: 1. Seroquel at bedtime. 2. Depakote 500 mg b.i.d. The patient reports that he has been on these medications a long time. He takes the Seroquel to help him sleep, Depakote for mood swings. The patient does see a psychiatrist at [facility] and sees a psychiatrist, Dr. Rendon, appr oximately once every 3 months or so, but recently has not been able to see him for over a year. SUBSTANCE USE: The patient reports that he does not use alcohol or other drugs. The patient reports that he does not smoke. MENTAL STATUS EXAMINATION: APPEARANCE: The patient was seen in bed. He appears to be of average height and overweight. The pa tient does have a jara and mustache. The patient is right-handed. BEHAVIOR: The patient was cooperative during the consultation. The patient did attempt to answer al l questions presented to him by the interviewer. MOOD AND AFFECT: The patient's mood appears to be slightly depressed. The patient does deny depress ion. The patient does appear to be slightly anxious. The patient does deny anxiety. The patient do es admit to being very frustrated about all his medical problems. PERCEPTION: The patient reports no hallucinations or delusions. The patient was alert to person, pl andie, situation, and time. MEMORY AND COGNITION: The patient's memory and cognition are basically intact. He had no difficulty remembering recent and remote events. The patient was able to name the hospital. The patient was a ble to name the month and the year. The patient was able to name the president/[employer]. He could not remember the governor of the [facility]. He could remember the mayor of this city. The patient did also add that Kathy Hoyos is the speaker of the House. The patient was able to spell "world" backwards. The patient was able to do 5 serial 7 subtractions from 100 without err or. Overall, the patient's cognition appears to be intact at the present time. INTELLIGENCE: Intelligence appears to fall in the average to above-average range. INSIGHT: Fair. JUDGMENT: Fair. THOUGHT CONTENT: The patient is concerned about his present medical condition. The patient is frust rated about all his medical problems and does want to get better and return home as soon as possible. DISCUSSION: The patient can likely benefit from some cognitive/behavioral psychotherapy while he is on the unit. The psychotherapy would focus on his underlying level of mood swings and trying to help him continue to work on mood stabilization. The patient was advised to reconnect with his psychiatr ist when he gets out of the hospital as he had not seen him in a long time. The patient agreed that he would do this. DIAGNOSTIC IMPRESSION: F31.9, bipolar disorder. Thank you very much, Dr. Lara Hooper, for referring this individual. Please do not hesitate to yuli sotelo if you have additional questions. Dictated By: JAIRO HICKS PHD REJI/VIKRAM Conf#: [id number] DID#: [id number] CC: MAMTA HOOPER MD;*[facility]*
[2019-03-11 02:00] VITALS: BP 104/68; PULSE 72; RESP 18
[2019-03-11] MEDS: VANCOMYCIN HCL 250 MG/5ML POSYG PO SCH ×3 (05:32→19:19)
[2019-03-11] MEDS: metroNIDAZOLE 500 MG TAB PO SCH ×3 (05:32→20:59)
[2019-03-11 07:30] VITALS: BP 116/64; PULSE 64; RESP 18
[2019-03-11] MEDS: RALTEGRAVIR 400 MG TAB PO SCH ×2 (08:11→20:53)
[2019-03-11] MEDS: LACTOBACILLUS RHAMNOSUS CAP PO SCH ×2 (08:11→20:53)
[2019-03-11] MEDS: DUTASTERIDE 0.5 MG CAP PO SCH (08:11)
[2019-03-11] MEDS: FAMOTIDINE 20 MG TAB PO SCH (08:12)
[2019-03-11] MEDS: AMIODARONE 200 MG TAB PO SCH ×2 (08:12→20:54)
[2019-03-11] MEDS: DIVALPROEX (ER) 500 MG TAB PO SCH ×2 (08:12→20:54)
[2019-03-11] MEDS: APIXABAN 5 MG TABLET PO SCH ×2 (08:12→20:53)
[2019-03-11 08:49] VITALS: BP 90/63; PULSE 77
--- NOTE | 2019-03-11 08:52 | PN ---
DATE: 03/11/2019 SUBJECTIVE: The patient is stable. No events overnight. OBJECTIVE: VITAL SIGNS: Blood pressure is 104/68, respirations 18, pulse 72, temperature 97.8. HEENT: Head is normocephalic. NECK: Supple. HEART: Regular rate. LUNGS: Show diminished breath sounds at the base. ABDOMEN: Soft, nontender to palpation without rebound or guarding. EXTREMITIES: Negative for clubbing, cyanosis, no edema. DERMATOLOGIC: No rashes. MUSCULOSKELETAL: No joint effusion. NEUROLOGIC: No change in exam. MEDICATIONS: Reviewed. LABORATORY DATA: Reviewed. IMAGING STUDIES: Reviewed. ASSESSMENT AND PLAN: 1. Nonoliguric acute kidney injury on top of chronic kidney disease with previous baseline creatinin e of 1.3 to 1.4 mg/dL. Etiology of acute kidney injury is secondary to hemodynamics and volume deple tion. The patient's renal function has been improving. Continue current treatment plan, supportive care, renally dose all medications. 2. Hypomagnesemia. Continue to monitor and replete as needed. 3. Anemia. Continue to monitor hemoglobin and hematocrit levels. 4. Mineral bone disorder, monitor calcium and phosphorus levels. 5. Hypertension. Continue current blood pressure regimen. 6. Urinary tract infection. The patient is completing antibiotic course. 7. Benign prostatic hypertrophy. Continue medical management. 8. Human immunodeficiency virus. Continue HAART therapy. 9. Clostridium difficile. Continue current medical management. 10. Arrhythmia. Continue to monitor. Follow up with Cardiology. Dictated By: EFRAIN LEMOS DO NR/NTS Conf#: [id number] DID#: [id number] CC: PADMA VALDEZ MD; SRINIVAS PARKER DO; MAMTA CHILDS MD;*EndCC*
[2019-03-11] MEDS: ABACAVIR/LAMIVUDINE TAB PO SCH (08:59)
[2019-03-11] MEDS: METOPROLOL 25 MG TAB PO SCH ×2 (09:00→20:53)
--- NOTE | 2019-03-11 09:10 | PN ---
Date/Time of Note Date/Time of Note DATE: 03/11/19 TIME: 09:10 Objective Vital Signs Date Temp Pulse Resp B/P (MAP) Pulse Ox O2 O2 Flow FiO2 Time Delivery Rate 03/11/19 77 90/63 (72) 08:49 03/11/19 97.8 18 96 Room Air 02:00 03/08/19 2.0 08:00 Intake and Output 03/10/19 03/10/19 03/11/19 1515:00 23:00 07:00 IntakeIntake Total 500 ml 2570 ml 500 ml OutputOutput Total 1150 ml 650 ml BalanceBalance 500 ml 1420 ml -150 ml Exam INTERDISCIPLINARY TEAM CONFERENCE Attended by PT, OT, ST, Ticket Worker, Social Work, Rehabilitation Nursing, Service Or Work Dispatcher and Junior ProgrammerManager Finance Exam: Pulm- cta Abd-soft BOWEL- loose stools BLADDER-Cont SKIN- improving OT- DRESSING-s BATHING-s TOILETING-s PT- BED MOBILITY-s TRANSFERS-s AMBULATION-sba 150 SPEECH- COGNITION-Improving with interdisciplinary approach. Patient at baseline cognition Dysphagia- A/P- Interdisciplinary team conference held today. Please see interdisciplinary sheet. Working toward d.c. on 03/13 with post discharge follow up of physical therapy, occupational therapy. Results/Medications Result Diagram: 03/09/1947 03/09/19644 Medications Current Medications Abacavir/ Lamivudine (Epzicom) 1 tab DAILY PO Last administered on 03/11/19at 08:59; Admin Dose 1 TAB; Start 03/05/19 at 09:00 Divalproex Sodium (Depakote Er) 500 mg BID PO Last administered on 03/11/19at 08:12; Admin Dose 500 MG; Start 03/05/19 at 09:00 Dutasteride (Avodart) 0.5 mg DAILY PO Last administered on 03/11/19at 08:11; Admin Dose 0.5 MG; Start 03/05/19 at 09:00 Miscellaneous Medication (Isentress) 400 mg BID PO Last administered on 03/11/19at 08:11; Admin Dose 400 MG; Start 03/05/19 at 09:00 Ondansetron HCl (Zofran Inj) 4 mg Q4H PRN IV NAUSEA AND/OR VOMITING; Start 03/04/19 at 23:30 Acetaminophen (Tylenol Tab) 650 mg Q6H PRN PO MILD PAIN(1-3)OR ELEVATED TEMP Last administered on 03/10/19at 23:11; Admin Dose 650 MG; Start 03/05/19 at 00:00 Atorvastatin Calcium (Lipitor) 10 mg HS PO Last administered on 03/10/19at 20:53; Admin Dose 10 MG; Start 03/05/19 at 21:00 Docusate Sodium (Colace) 100 mg BID PRN PO CONSTIPATION; Start 03/05/19 at 00:00 Famotidine (Pepcid) 20 mg DAILY PO Last administered on 03/11/19at 08:12; Admin Dose 20 MG; Start 03/05/19 at 09:00 Magnesium Hydroxide (Milk Of Mag) 30 ml DAILY PRN PO CONSTIPATION; Start 03/05/19 at 00:00 Phenol (Cepastat Lozenge) 1 lozenge Q1H PRN [place] SORE THROAT; Start 03/05/19 at 00:00 Tramadol HCl (Ultram) 50 mg Q6H PRN PO MODERATE PAIN LEVEL 4-6; Start 03/05/19 at 00:00 Senna (Senokot) 1 tab HS PO Last administered on 03/05/19at 20:58; Admin Dose 1 TAB; Start 03/05/19 at 21:00 Lactulose (Enulose) 20 gm DAILY PRN PO CONSTIPATION; Start 03/05/19 at 00:00 Bisacodyl (Dulcolax Supp) 10 mg DAILY PRN [place] CONSTIPATION; Start 03/05/19 at 00:00 IV Flush (NS 3 ml) 3 ml Q8H and PRN adm IV ; Start 03/05/19 at 01:30 Lactobacillus Acidophilus/ Rhamnosus (Culturelle) 1 cap BID PO Last administered on 03/11/19at 08:11; Admin Dose 1 CAP; Start 03/07/19 at 21:00 Apixaban (Eliquis) 2.5 mg BID PO Last administered on 03/11/19at 08:12; Admin Dose 2.5 MG; Start 03/07/19 at 11:30 Vancomycin HCl (Vancomycin Oral Syringe) 125 mg Q6 PO Last administered on 03/11/19at 05:32; Admin Dose 125 MG; Start 03/08/19 at 15:00; Stop 03/15/19 at 14:59 Metronidazole (Flagyl) 500 mg Q8 PO Last administered on 03/11/19 05:32; Admin Dose 500 MG; Start 03/08/19 at 22:00; Stop 03/19/19 at 21:59 Quetiapine Fumarate (Seroquel) 25 mg HS PO Last administered on 03/10/19at 20:52; Admin Dose 25 MG; Start 03/09/19 at 21:00 Amiodarone HCl (Cordarone) 200 mg BID PO Last administered on 03/11/19 08:12; Admin Dose 200 MG; Start 03/09/19 at 21:00 Metoprolol Tartrate (Lopressor) 12.5 mg BID PO Last administered on 03/10/19at 21:06; Admin Dose 12.5 MG; Start 03/09/19 at 21:00 MAMTA CHILDS MD Mar 11, 2019 09:10
--- NOTE | 2019-03-11 13:45 | PN ---
Date/Time of Note Date/Time of Note DATE: 03/11/19 TIME: 13:40 Assessment/Plan VTE Prophylaxis Risk score (from Ns)>0 risk: 4 SCD applied (from [facility] [place]): No SCD contraindicated: other Pharmacological prophylaxis: NA/contraindicated Pharm contraindication: low risk/ambulating Lines/Catheters IV Catheter Type (from [facility] [place]): Saline Lock Urinary Cath still in place: No Assessment/Plan Hospital Course SUBJECTIVE: no acute distress. bp stable now. Diarrhea resolving... OBJECTIVE: Vital signs-see below PHYSICAL EXAM: Constitutional: Adequately built,not in acute distress. HEENT: Head atraumatic and normocephalic. Eyes: Extraocular muscles intact. Anicteric sclerae. Pupils equal bilaterally, reactive to light. NECK: Supple without lymph node. CHEST: Clear and good breath sounds equally. No wheezing. No rhonchi. HEART: S1, S2. Regular rate and rhythm. ABDOMEN: Soft/non tender with no rebound tenderness. Bowel sounds were present. EXTREMITIES: No cyanosis, clubbing or edema. NEUROLOGIC:+Mild dysarthria. Alert and oriented x3. No focal deficit. No sensory deficit. PSYCHOSOCIAL: No signs of depression. INTEGUMENTARY: No open wounds. ASSESSMENT AND PLAN Dysarthria/gait disturbance -Questionable encephalopathy in HIV complicated by UTI -s/p neurology work-up. No acute focal PHARMACY INNOVATION ASSISTANT etiologies. -No LP studies recommended by neuro. -Continue PT/ST/OT C. difficile colitis -Diarrhea improving. -cont.vanco+flagyl Acute kidney injury on CKD -Renal function stabilizing.. -Being followed by riprap placing supervisor. Paroxysmal atrial fibrillation/flutter -Being followed by cardiology. -On eliquis/BB/amiodarone HIV -on HAART UTI -s/p abx. BPH -Cardura has been stopped secondary to hypotension. Hypertension -hypotensive now. BP meds w/parameters. Dyslipidemia -On statin Anxiety/sleep disorders -Continue Seroquel DVT prophylaxis: SCDs Patient was seen in collaboration with Dr. Bush Result Diagram: 03/09/19 0645 03/09/19 0645 Exam/Review of Systems Exam Vitals Vital Signs Date Temp Pulse Resp B/P (MAP) Pulse Ox O2 O2 Flow FiO2 Time Delivery Rate 03/11/19 77 90/63 (72) 08:49 03/11/19 97.6 18 94 Room Air 07:30 03/08/19 2.0 08:00 Intake and Output 03/10/19 03/10/19 03/11/19 1515:00 23:00 07:00 IntakeIntake Total 500 ml 2570 ml 500 ml OutputOutput Total 1150 ml 650 ml BalanceBalance 500 ml 1420 ml -150 ml Medications Medication Current Medications Abacavir/ Lamivudine (Epzicom) 1 tab DAILY PO Last administered on 03/11/19 08:59; Admin Dose 1 TAB; Start 03/05/19 at 09:00 Divalproex Sodium (Depakote Er) 500 mg BID PO Last administered on 03/11/19 08:12; Admin Dose 500 MG; Start 03/05/19 at 09:00 Dutasteride (Avodart) 0.5 mg DAILY PO Last administered on 03/11/19 08:11; Admin Dose 0.5 MG; Start 03/05/19 at 09:00 Miscellaneous Medication (Isentress) 400 mg BID PO Last administered on 03/11/19 08:11; Admin Dose 400 MG; Start 03/05/19 at 09:00 Ondansetron HCl (Zofran Inj) 4 mg Q4H PRN IV NAUSEA AND/OR VOMITING; Start 03/04/19 at 23:30 Acetaminophen (Tylenol Tab) 650 mg Q6H PRN PO MILD PAIN(1-3)OR ELEVATED TEMP Last administered on 03/10/19 23:11; Admin Dose 650 MG; Start 03/05/19 at 00:00 Atorvastatin Calcium (Lipitor) 10 mg HS PO Last administered on 03/10/19at 20:53; Admin Dose 10 MG; Start 03/05/19 at 21:00 Docusate Sodium (Colace) 100 mg BID PRN PO CONSTIPATION; Start 03/05/19 at 00:00 Famotidine (Pepcid) 20 mg DAILY PO Last administered on 03/11/19 08:12; Admin Dose 20 MG; Start 03/05/19 at 09:00 Magnesium Hydroxide (Milk Of Mag) 30 ml DAILY PRN PO CONSTIPATION; Start 03/05/19 at 00:00 Phenol (Cepastat Lozenge) 1 lozenge Q1H PRN [place] SORE THROAT; Start 03/05/19 at 00:00 Tramadol HCl (Ultram) 50 mg Q6H PRN PO MODERATE PAIN LEVEL 4-6; Start 03/05/19 at 00:00 Senna (Senokot) 1 tab HS PO Last administered on 03/05/19at 20:58; Admin Dose 1 TAB; Start 03/05/19 at 21:00 Lactulose (Enulose) 20 gm DAILY PRN PO CONSTIPATION; Start 03/05/19 at 00:00 Bisacodyl (Dulcolax Supp) 10 mg DAILY PRN [place] CONSTIPATION; Start 03/05/19 at 00:00 IV Flush (NS 3 ml) 3 ml Q8H and PRN adm IV ; Start 03/05/19 at 01:30 Lactobacillus Acidophilus/ Rhamnosus (Culturelle) 1 cap BID PO Last administered on 03/11/19 08:11; Admin Dose 1 CAP; Start 03/07/19 at 21:00 Apixaban (Eliquis) 2.5 mg BID PO Last administered on 03/11/19 08:12; Admin Dose 2.5 MG; Start 03/07/19 at 11:30 Vancomycin HCl (Vancomycin Oral Syringe) 125 mg Q6 PO Last administered on 03/11/19 11:24; Admin Dose 125 MG; Start 03/08/19 at 15:00; Stop 03/15/19 at 14:59 Metronidazole (Flagyl) 500 mg Q8 PO Last administered on 03/11/19 05:32; Admin Dose 500 MG; Start 03/08/19 at 22:00; Stop 03/19/19 at 21:59 Quetiapine Fumarate (Seroquel) 25 mg HS PO Last administered on 03/10/19at 20:52; Admin Dose 25 MG; Start 03/09/19 at 21:00 Amiodarone HCl (Cordarone) 200 mg BID PO Last administered on 03/11/19 08:12; Admin Dose 200 MG; Start 03/09/19 at 21:00 Metoprolol Tartrate (Lopressor) 12.5 mg BID PO Last administered on 03/10/19 21:06; Admin Dose 12.5 MG; Start 03/09/19 at 21:00 AGNES LAMA NP Mar 11, 2019 13:45
--- NOTE | 2019-03-11 13:48 | CONS ---
Assessment/Plan Assessment/Plan Hospital Course (Demo Recall) Atrial flutter Preserved EF SIRS Labile blood pressure Blood pressure trend overall improved, continue beta-rommel with holding parameters. Continue amiodarone as tolerated Continue anticoagulation as tolerated Consultation Date/Type/Reason Admit Date/Time Mar 04, 2019 at 22:00 Initial Consult Date Type of Consult Cardiology Date/Time of Note DATE: 03/11/19 TIME: 13:47 24 HR Interval Summary Free Text/Dictation No shortness of breath, palpitations, chest pain or dizziness Exam/Review of Systems Vital Signs Vitals Vital Signs Date Temp Pulse Resp B/P (MAP) Pulse Ox O2 O2 Flow FiO2 Time Delivery Rate 03/11/19 77 90/63 (72) 08:49 03/11/19 97.6 18 94 Room Air 07:30 03/08/19 2.0 08:00 Intake and Output 03/10/19 03/10/19 03/11/19 1414:59 22:59 06:59 IntakeIntake Total 500 ml 2570 ml 500 ml OutputOutput Total 1150 ml 650 ml BalanceBalance 500 ml 1420 ml -150 ml Exam Constitutional: alert, oriented (No apparent distress) Head: normocephalic Respiratory: clear to auscultation, normal air movement Cardiovascular: irregular rhythm (S1-S2 heard) Gastrointestinal: soft, non-tender, bowel sounds Extremities: edema (Trace) Labs Result Diagram: 03/09/1945 03/09/19 0645 Medications Medications Current Medications Abacavir/ Lamivudine (Epzicom) 1 tab DAILY PO Last administered on 03/11/19at 08:59; Admin Dose 1 TAB; Start 03/05/19 at 09:00 Divalproex Sodium (Depakote Er) 500 mg BID PO Last administered on 03/11/19at 08:12; Admin Dose 500 MG; Start 03/05/19 at 09:00 Dutasteride (Avodart) 0.5 mg DAILY PO Last administered on 03/11/19at 08:11; Admin Dose 0.5 MG; Start 03/05/19 at 09:00 Miscellaneous Medication (Isentress) 400 mg BID PO Last administered on 03/11/19at 08:11; Admin Dose 400 MG; Start 03/05/19 at 09:00 Ondansetron HCl (Zofran Inj) 4 mg Q4H PRN IV NAUSEA AND/OR VOMITING; Start 03/04/19 at 23:30 Acetaminophen (Tylenol Tab) 650 mg Q6H PRN PO MILD PAIN(1-3)OR ELEVATED TEMP Last administered on 03/10/19at 23:11; Admin Dose 650 MG; Start 03/05/19 at 00:00 Atorvastatin Calcium (Lipitor) 10 mg HS PO Last administered on 03/10/19at 20:53; Admin Dose 10 MG; Start 03/05/19 at 21:00 Docusate Sodium (Colace) 100 mg BID PRN PO CONSTIPATION; Start 03/05/19 at 00:00 Famotidine (Pepcid) 20 mg DAILY PO Last administered on 03/11/19at 08:12; Admin Dose 20 MG; Start 03/05/19 at 09:00 Magnesium Hydroxide (Milk Of Mag) 30 ml DAILY PRN PO CONSTIPATION; Start 03/05/19 at 00:00 Phenol (Cepastat Lozenge) 1 lozenge Q1H PRN [place] SORE THROAT; Start 03/05/19 at 00:00 Tramadol HCl (Ultram) 50 mg Q6H PRN PO MODERATE PAIN LEVEL 4-6; Start 03/05/19 at 00:00 Senna (Senokot) 1 tab HS PO Last administered on 03/05/19at 20:58; Admin Dose 1 TAB; Start 03/05/19 at 21:00 Lactulose (Enulose) 20 gm DAILY PRN PO CONSTIPATION; Start 03/05/19 at 00:00 Bisacodyl (Dulcolax Supp) 10 mg DAILY PRN [place] CONSTIPATION; Start 03/05/19 at 00:00 IV Flush (NS 3 ml) 3 ml Q8H and PRN adm IV ; Start 03/05/19 at 01:30 Lactobacillus Acidophilus/ Rhamnosus (Culturelle) 1 cap BID PO Last administered on 03/11/19at 08:11; Admin Dose 1 CAP; Start 03/07/19 at 21:00 Apixaban (Eliquis) 2.5 mg BID PO Last administered on 03/11/19 08:12; Admin Dose 2.5 MG; Start 03/07/19 at 11:30 Vancomycin HCl (Vancomycin Oral Syringe) 125 mg Q6 PO Last administered on 03/11/19at 11:24; Admin Dose 125 MG; Start 03/08/19 at 15:00; Stop 03/15/19 at 14:59 Metronidazole (Flagyl) 500 mg Q8 PO Last administered on 03/11/19at 05:32; Admin Dose 500 MG; Start 03/08/19 at 22:00; Stop 03/19/19 at 21:59 Amiodarone HCl (Cordarone) 200 mg BID PO Last administered on 03/11/19at 08:12; Admin Dose 200 MG; Start 03/09/19 at 21:00 Metoprolol Tartrate (Lopressor) 12.5 mg BID PO Last administered on 03/10/19at 21:06; Admin Dose 12.5 MG; Start 03/09/19 at 21:00 Quetiapine Fumarate (Seroquel) 50 mg HS PO ; Start 03/11/19 at 21:00; Status UNBenny Oswald DO Mar 11, 2019 13:48
[2019-03-11 14:00] VITALS: BP 107/70; PULSE 81; RESP 18
[2019-03-11 19:53] VITALS: BP 112/67; PULSE 75; RESP 18
[2019-03-11] MEDS: ATORVASTATIN 10 MG TAB PO SCH (20:53)
[2019-03-11] MEDS: SENNA TAB PO SCH (21:00)
[2019-03-11] MEDS: QUETIAPINE 25 MG TAB PO SCH (21:00)
[2019-03-12] MEDS: VANCOMYCIN HCL 250 MG/5ML POSYG PO SCH ×5 (00:16→23:39)
[2019-03-12 02:24] VITALS: BP 106/75; PULSE 86; RESP 18
[2019-03-12] MEDS: metroNIDAZOLE 500 MG TAB PO SCH ×3 (05:46→21:10)
[2019-03-12 08:25] VITALS: BP 107/64; PULSE 60; RESP 18
--- NOTE | 2019-03-12 08:29 | PN ---
DATE: 03/12/2019 SUBJECTIVE: The patient is stable, no events overnight. OBJECTIVE: VITAL SIGNS: Blood pressure is 106/75, respirations 18, pulse 86, temperature 97.6. HEENT: Head is normocephalic. NECK: Supple. HEART: Regular rate. LUNGS: Show diminished breath sounds at the base. ABDOMEN: Soft, nontender to palpation without rebound or guarding. EXTREMITIES: Negative for clubbing, cyanosis, no edema. DERMATOLOGIC: No rashes. MUSCULOSKELETAL: No joint effusion. NEUROLOGIC: No change in exam. MEDICATIONS: Reviewed. LABORATORY DATA: Reviewed. IMAGING STUDIES: Reviewed. ASSESSMENT AND PLAN: 1. Nonoliguric acute kidney injury on top of chronic kidney disease with previous baseline creatinin e of 1.3 to 1.4 mg/dL. Etiology of acute kidney injury is secondary to hemodynamics, possible tubula r injury. The patient's renal function has slowly improving. Continue current treatment plan, suppo rtive care, renally dose all medications. 2. Hypomagnesemia, improved. 3. Anemia. Continue to monitor hemoglobin and hematocrit levels. 4. Mineral bone disorder, monitor calcium and phosphorus levels. 5. Hypertension. Continue current blood pressure regimen. 6. Urinary tract infection. The patient is completing antibiotic course. 7. Human immunodeficiency virus. Continue HAART therapy. 8. Clostridium difficile. Continue current medical management. 9. Arrhythmia. Continue medical management. Followup with Cardiology. Dictated By: EFRAIN LEMOS DO NR/NTS Conf#: [id number] DID#: [id number] CC: MAMTA CHILDS MD; PADMA VALDEZ MD; SRINIVAS PARKER DO;*EndCC*
[2019-03-12] MEDS: DIVALPROEX (ER) 500 MG TAB PO SCH ×2 (08:43→20:56)
[2019-03-12] MEDS: DUTASTERIDE 0.5 MG CAP PO SCH (08:44)
[2019-03-12] MEDS: AMIODARONE 200 MG TAB PO SCH ×2 (08:45→20:56)
[2019-03-12] MEDS: RALTEGRAVIR 400 MG TAB PO SCH ×2 (08:49→20:57)
[2019-03-12] MEDS: ABACAVIR/LAMIVUDINE TAB PO SCH (08:49)
[2019-03-12] MEDS: FAMOTIDINE 20 MG TAB PO SCH (08:49)
[2019-03-12] MEDS: APIXABAN 5 MG TABLET PO SCH ×2 (08:49→20:57)
[2019-03-12] MEDS: LACTOBACILLUS RHAMNOSUS CAP PO SCH ×2 (08:49→20:57)
[2019-03-12] MEDS: METOPROLOL 25 MG TAB PO SCH ×2 (09:00→21:11)
--- NOTE | 2019-03-12 12:21 | PN ---
Date/Time of Note Date/Time of Note DATE: 03/12/19 TIME: 12:20 Assessment/Plan VTE Prophylaxis Risk score (from Ns)>0 risk: 4 SCD applied (from [facility] [place] No SCD contraindicated: other Pharmacological prophylaxis: NA/contraindicated Pharm contraindication: low risk/ambulating Lines/Catheters IV Catheter Type (from [facility] Saline Lock Urinary Cath still in place: No Assessment/Plan Hospital Course SUBJECTIVE: no acute distress. bp stable now. Diarrhea resolving... OBJECTIVE: Vital signs-see below PHYSICAL EXAM: Constitutional: Adequately built,not in acute distress. HEENT: Head atraumatic and normocephalic. Eyes: Extraocular muscles intact. Anicteric sclerae. Pupils equal bilaterally, reactive to light. NECK: Supple without lymph node. CHEST: Clear and good breath sounds equally. No wheezing. No rhonchi. HEART: S1, S2. Regular rate and rhythm. ABDOMEN: Soft/non tender with no rebound tenderness. Bowel sounds were present. EXTREMITIES: No cyanosis, clubbing or edema. NEUROLOGIC:+Mild dysarthria. Alert and oriented x3. No focal deficit. No sensory deficit. PSYCHOSOCIAL: No signs of depression. INTEGUMENTARY: No open wounds. ASSESSMENT AND PLAN Dysarthria/gait disturbance -Questionable encephalopathy in HIV complicated by UTI -s/p neurology work-up. No acute focal RN ADVANCED etiologies. -No LP studies recommended by neuro. -Continue PT/ST/OT C. difficile colitis -Diarrhea improving. -cont.vanco+flagyl Acute kidney injury on CKD -Renal function stabilizing.. -Being followed by button maker. Paroxysmal atrial fibrillation/flutter -Being followed by cardiology. -On eliquis/BB/amiodarone HIV -on HAART UTI -s/p abx. BPH -Cardura has been stopped secondary to hypotension. Hypertension -hypotensive now. BP meds w/parameters. Dyslipidemia -On statin Anxiety/sleep disorders -Continue Seroquel DVT prophylaxis: SCDs Patient was seen in collaboration with Dr. Bush Result Diagram: 03/09/19 0645 03/12/19 0627 Results 24hrs Laboratory Tests Test 03/12/19 06:27 Sodium Level 141 Potassium Level 4.5 Chloride Level 109 Carbon Dioxide Level 23 Anion Gap 9 Blood Urea Nitrogen 21 H Creatinine 1.99 H Est Glomerular Filtrat Rate mL/min Glucose Level 96 Calcium Level 8.9 Phosphorus Level 4.1 Magnesium Level 1.8 Exam/Review of Systems Exam Vitals Vital Signs Date Temp Pulse Resp B/P (MAP) Pulse Ox O2 O2 Flow FiO2 Time Delivery Rate 03/12/19 97.8 60 18 107/64 96 Room Air 08:25 (78) 03/08/19 2.0 08:00 Intake and Output 03/11/19 03/11/19 03/12/19 1515:00 23:00 07:00 IntakeIntake Total 1000 ml 2080 ml 900 ml OutputOutput Total 400 ml 1300 ml BalanceBalance 1000 ml 1680 ml -400 ml Results Results 24hrs Laboratory Tests Test 03/12/19 06:27 Sodium Level 141 Potassium Level 4.5 Chloride Level 109 Carbon Dioxide Level 23 Anion Gap 9 Blood Urea Nitrogen 21 H Creatinine 1.99 H Est Glomerular Filtrat Rate mL/min Glucose Level 96 Calcium Level 8.9 Phosphorus Level 4.1 Magnesium Level 1.8 Medications Medication Current Medications Abacavir/ Lamivudine (Epzicom) 1 tab DAILY PO Last administered on 03/12/19 08:49; Admin Dose 1 TAB; Start 03/05/19 at 09:00 Divalproex Sodium (Depakote Er) 500 mg BID PO Last administered on 03/12/19 08:43; Admin Dose 500 MG; Start 03/05/19 at 09:00 Dutasteride (Avodart) 0.5 mg DAILY PO Last administered on 03/12/19 08:44; Admin Dose 0.5 MG; Start 03/05/19 at 09:00 Miscellaneous Medication (Isentress) 400 mg BID PO Last administered on 03/12/19 08:49; Admin Dose 400 MG; Start 03/05/19 at 09:00 Ondansetron HCl (Zofran Inj) 4 mg Q4H PRN IV NAUSEA AND/OR VOMITING; Start 03/04/19 at 23:30 Acetaminophen (Tylenol Tab) 650 mg Q6H PRN PO MILD PAIN(1-3)OR ELEVATED TEMP Last administered on 03/10/19 23:11; Admin Dose 650 MG; Start 03/05/19 at 00:00 Atorvastatin Calcium (Lipitor) 10 mg HS PO Last administered on 03/11/19 20:53; Admin Dose 10 MG; Start 03/05/19 at 21:00 Docusate Sodium (Colace) 100 mg BID PRN PO CONSTIPATION; Start 03/05/19 at 00:00 Famotidine (Pepcid) 20 mg DAILY PO Last administered on 03/12/19 08:49; Admin Dose 20 MG; Start 03/05/19 at 09:00 Magnesium Hydroxide (Milk Of Mag) 30 ml DAILY PRN PO CONSTIPATION; Start 03/05/19 at 00:00 Phenol (Cepastat Lozenge) 1 lozenge Q1H PRN [place] SORE THROAT; Start 03/05/19 at 00:00 Tramadol HCl (Ultram) 50 mg Q6H PRN PO MODERATE PAIN LEVEL 4-6; Start 03/05/19 at 00:00 Senna (Senokot) 1 tab HS PO Last administered on 03/05/19at 20:58; Admin Dose 1 TAB; Start 03/05/19 at 21:00 Lactulose (Enulose) 20 gm DAILY PRN PO CONSTIPATION; Start 03/05/19 at 00:00 Bisacodyl (Dulcolax Supp) 10 mg DAILY PRN [place] CONSTIPATION; Start 03/05/19 at 00 :00 IV Flush (NS 3 ml) 3 ml Q8H and PRN adm IV ; Start 03/05/19 at 01:30 Lactobacillus Acidophilus/ Rhamnosus (Culturelle) 1 cap BID PO Last administered on 03/12/19 08:49; Admin Dose 1 CAP; Start 03/07/19 at 21:00 Apixaban (Eliquis) 2.5 mg BID PO Last administered on 03/12/19 08:49; Admin Dose 2.5 MG; Start 03/07/19 at 11:30 Vancomycin HCl (Vancomycin Oral Syringe) 125 mg Q6 PO Last administered on 03/12/19 12:00; Admin Dose 125 MG; Start 03/08/19 at 15:00; Stop 03/15/19 at 14:59 Metronidazole (Flagyl) 500 mg Q8 PO Last administered on 03/12/19 05:46; Admin Dose 500 MG; Start 03/08/19 at 22:00; Stop 03/19/19 at 21:59 Amiodarone HCl (Cordarone) 200 mg BID PO Last administered on 6/28/19at 08:45; Admin Dose 200 MG; Start 03/09/19 at 21:00 Metoprolol Tartrate (Lopressor) 12.5 mg BID PO Last administered on 03/11/19at 20:53; Admin Dose 12.5 MG; Start 03/09/19 at 21:00 Quetiapine Fumarate (Seroquel) 50 mg HS PO Last administered on 03/11/19at 21:00; Admin Dose 50 MG; Start 03/11/19 at 21:00 AGNES LAMA NP Mar 12, 2019 12:21
--- NOTE | 2019-03-12 12:40 | CONS ---
Assessment/Plan Assessment/Plan Hospital Course (Demo Recall) Atrial flutter Preserved EF SIRS Labile blood pressure Blood pressure trend overall better, continue beta-rommel with holding parameters. Continue amiodarone as tolerated Continue anticoagulation as tolerated Consultation Date/Type/Reason Admit Date/Time Mar 04, 2019 at 22:00 Initial Consult Date Type of Consult Cardiology Date/Time of Note DATE: 03/12/19 TIME: 12:38 24 HR Interval Summary Free Text/Dictation Denies dizziness, shortness of breath or palpitations Exam/Review of Systems Vital Signs Vitals Vital Signs Date Temp Pulse Resp B/P (MAP) Pulse Ox O2 O2 Flow FiO2 Time Delivery Rate 03/12/19 97.8 60 18 107/64 96 Room Air 08:25 (78) 03/08/19 2.0 08:00 Intake and Output 03/11/19 03/11/19 03/12/19 1515:00 23:00 07:00 IntakeIntake Total 1000 ml 2080 ml 900 ml OutputOutput Total 400 ml 1300 ml BalanceBalance 1000 ml 1680 ml -400 ml Exam Constitutional: alert, oriented Head: normocephalic Respiratory: other (Coarse breath sounds bilaterally, no wheezing) Cardiovascular: regular rate and rhythm (Occasional irregularities, S1-S2 heard) Gastrointestinal: soft, non-tender, bowel sounds Extremities: other (No significant edema) Labs Result Diagram: 03/09/19 0645 03/12/19 0627 Results 24hrs Laboratory Tests Test 03/12/19 06:27 Sodium Level 141 Potassium Level 4.5 Chloride Level 109 Carbon Dioxide Level 23 Anion Gap 9 Blood Urea Nitrogen 21 H Creatinine 1.99 H Est Glomerular Filtrat Rate mL/min Glucose Level 96 Calcium Level 8.9 Phosphorus Level 4.1 Magnesium Level 1.8 Medications Medications Current Medications Abacavir/ Lamivudine (Epzicom) 1 tab DAILY PO Last administered on 03/12/19at 08:49; Admin Dose 1 TAB; Start 03/05/19 at 09:00 Divalproex Sodium (Depakote Er) 500 mg BID PO Last administered on 03/12/19at 08:43; Admin Dose 500 MG; Start 03/05/19 at 09:00 Dutasteride (Avodart) 0.5 mg DAILY PO Last administered on 03/12/19at 08:44; Admin Dose 0.5 MG; Start 03/05/19 at 09:00 Miscellaneous Medication (Isentress) 400 mg BID PO Last administered on 03/12/19at 08:49; Admin Dose 400 MG; Start 03/05/19 at 09:00 Ondansetron HCl (Zofran Inj) 4 mg Q4H PRN IV NAUSEA AND/OR VOMITING; Start 03/04/19 at 23:30 Acetaminophen (Tylenol Tab) 650 mg Q6H PRN PO MILD PAIN(1-3)OR ELEVATED TEMP Last administered on 03/10/19at 23:11; Admin Dose 650 MG; Start 03/05/19 at 00:00 Atorvastatin Calcium (Lipitor) 10 mg HS PO Last administered on 03/11/19at 20:53; Admin Dose 10 MG; Start 03/05/19 at 21:00 Docusate Sodium (Colace) 100 mg BID PRN PO CONSTIPATION; Start 03/05/19 at 00:00 Famotidine (Pepcid) 20 mg DAILY PO Last administered on 03/12/19at 08:49; Admin Dose 20 MG; Start 03/05/19 at 09:00 Magnesium Hydroxide (Milk Of Mag) 30 ml DAILY PRN PO CONSTIPATION; Start 03/05/19 at 00:00 Phenol (Cepastat Lozenge) 1 lozenge Q1H PRN [place] SORE THROAT; Start 03/05/19 at 00:00 Tramadol HCl (Ultram) 50 mg Q6H PRN PO MODERATE PAIN LEVEL 4-6; Start 03/05/19 at 00:00 Senna (Senokot) 1 tab HS PO Last administered on 03/05/19at 20:58; Admin Dose 1 TAB; Start 03/05/19 at 21:00 Lactulose (Enulose) 20 gm DAILY PRN PO CONSTIPATION; Start 03/05/19 at 00:00 Bisacodyl (Dulcolax Supp) 10 mg DAILY PRN [place] CONSTIPATION; Start 03/05/19 at 00:00 IV Flush (NS 3 ml) 3 ml Q8H and PRN adm IV ; Start 03/05/19 at 01:30 Lactobacillus Acidophilus/ Rhamnosus (Culturelle) 1 cap BID PO Last administered on 03/12/19at 08:49; Admin Dose 1 CAP; Start 03/07/19 at 21:00 Apixaban (Eliquis) 2.5 mg BID PO Last administered on 03/12/19 08:49; Admin Dose 2.5 MG; Start 03/07/19 at 11:30 Vancomycin HCl (Vancomycin Oral Syringe) 125 mg Q6 PO Last administered on 03/12/19 12:00; Admin Dose 125 MG; Start 03/08/19 at 15:00; Stop 03/15/19 at 14:59 Metronidazole (Flagyl) 500 mg Q8 PO Last administered on 03/12/19 05:46; Admin Dose 500 MG; Start 03/08/19 at 22:00; Stop 03/19/19 at 21:59 Amiodarone HCl (Cordarone) 200 mg BID PO Last administered on 03/12/19 08:45; Admin Dose 200 MG; Start 03/09/19 at 21:00 Metoprolol Tartrate (Lopressor) 12.5 mg BID PO Last administered on 03/11/19at 20:53; Admin Dose 12.5 MG; Start 03/09/19 at 21:00 Quetiapine Fumarate (Seroquel) 50 mg HS PO Last administered on 03/11/19at 21:00; Admin Dose 50 MG; Start 03/11/19 at 21:00 Benny Hernandez DO Mar 12, 2019 12:40
[2019-03-12] MEDS: ACETAMINOPHEN 325 MG TAB PO PRN (13:03)
[2019-03-12 14:00] VITALS: BP 97/68; PULSE 71; RESP 19
--- NOTE | 2019-03-12 15:40 | PN ---
Date/Time of Note Date/Time of Note DATE: 03/12/19 TIME: 15:40 Subjective Less BM Objective Vital Signs Date Temp Pulse Resp B/P (MAP) Pulse Ox O2 O2 Flow FiO2 Time Delivery Rate 03/12/19 97.3 71 19 97/68 (78) 93 14:00 03/12/19 Room Air 08:25 03/08/19 2.0 08:00 Intake and Output 03/11/19 03/11/19 03/12/19 1515:00 23:00 07:00 IntakeIntake Total 1000 ml 2080 ml 900 ml OutputOutput Total 400 ml 1300 ml BalanceBalance 1000 ml 1680 ml -400 ml Exam pulm-cta abd-soft sba ambulation Results/Medications Result Diagram: 03/09/19 0645 03/12/19 0627 Results 24 hrs Laboratory Tests Test 03/12/19 06:27 Sodium Level 141 Potassium Level 4.5 Chloride Level 109 Carbon Dioxide Level 23 Anion Gap 9 Blood Urea Nitrogen 21 H Creatinine 1.99 H Est Glomerular Filtrat Rate mL/min Glucose Level 96 Calcium Level 8.9 Phosphorus Level 4.1 Magnesium Level 1.8 Medications Current Medications Abacavir/ Lamivudine (Epzicom) 1 tab DAILY PO Last administered on 03/12/19at 08:49; Admin Dose 1 TAB; Start 03/05/19 at 09:00 Divalproex Sodium (Depakote Er) 500 mg BID PO Last administered on 03/12/19 08:43; Admin Dose 500 MG; Start 03/05/19 at 09:00 Dutasteride (Avodart) 0.5 mg DAILY PO Last administered on 03/12/19at 08:44; Admin Dose 0.5 MG; Start 03/05/19 at 09:00 Miscellaneous Medication (Isentress) 400 mg BID PO Last administered on 03/12/19 08:49; Admin Dose 400 MG; Start 03/05/19 at 09:00 Ondansetron HCl (Zofran Inj) 4 mg Q4H PRN IV NAUSEA AND/OR VOMITING; Start 03/04/19 at 23:30 Acetaminophen (Tylenol Tab) 650 mg Q6H PRN PO MILD PAIN(1-3)OR ELEVATED TEMP Last administered on 03/12/19at 13:03; Admin Dose 650 MG; Start 03/05/19 at 00:00 Atorvastatin Calcium (Lipitor) 10 mg HS PO Last administered on 03/11/19at 20:53; Admin Dose 10 MG; Start 03/05/19 at 21:00 Docusate Sodium (Colace) 100 mg BID PRN PO CONSTIPATION; Start 03/05/19 at 00:00 Famotidine (Pepcid) 20 mg DAILY PO Last administered on 03/12/19 08:49; Admin Dose 20 MG; Start 03/05/19 at 09:00 Magnesium Hydroxide (Milk Of Mag) 30 ml DAILY PRN PO CONSTIPATION; Start 03/05/19 at 00:00 Phenol (Cepastat Lozenge) 1 lozenge Q1H PRN MT SORE THROAT; Start 03/05/19 at 00:00 Tramadol HCl (Ultram) 50 mg Q6H PRN PO MODERATE PAIN LEVEL 4-6; Start 03/05/19 at 00:00 Senna (Senokot) 1 tab HS PO Last administered on 03/05/19at 20:58; Admin Dose 1 TAB; Start 03/05/19 at 21:00 Lactulose (Enulose) 20 gm DAILY PRN PO CONSTIPATION; Start 03/05/19 at 00:00 Bisacodyl (Dulcolax Supp) 10 mg DAILY PRN [place] CONSTIPATION; Start 03/05/19 at 00:00 IV Flush (NS 3 ml) 3 ml Q8H and PRN adm IV ; Start 03/05/19 at 01:30 Lactobacillus Acidophilus/ Rhamnosus (Culturelle) 1 cap BID PO Last administered on 03/12/19 08:49; Admin Dose 1 CAP; Start 03/07/19 at 21:00 Apixaban (Eliquis) 2.5 mg BID PO Last administered on 03/12/19 08:49; Admin Dose 2.5 MG; Start 03/07/19 at 11:30 Vancomycin HCl (Vancomycin Oral Syringe) 125 mg Q6 PO Last administered on 03/12/19at 12:00; Admin Dose 125 MG; Start 03/08/19 at 15:00; Stop 03/15/19 at 1 4:59 Metronidazole (Flagyl) 500 mg Q8 PO Last administered on 03/12/19 05:46; Admin Dose 500 MG; Start 03/08/19 at 22:00; Stop 03/19/19 at 21:59 Amiodarone HCl (Cordarone) 200 mg BID PO Last administered on 03/12/19at 08:45; Admin Dose 200 MG; Start 03/09/19 at 21:00 Metoprolol Tartrate (Lopressor) 12.5 mg BID PO Last administered on 03/11/19at 20:53; Admin Dose 12.5 MG; Start 03/09/19 at 21:00 Quetiapine Fumarate (Seroquel) 50 mg HS PO Last administered on 03/11/19at 21:00; Admin Dose 50 MG; Start 03/11/19 at 21:00 Assessment/Plan Additional Assessment/Plan rehab- Toxic metabolic encephalopathy. Workingtowrds home tomorrow GI- CDif colitis, on abx FEN- encourage po intake HIV positive. Dysarthria. BPH. Urinary tract infection- completed course Hypertension. MAMTA CHILDS MD Mar 12, 2019 15:40
[2019-03-12 20:12] VITALS: BP 104/62; PULSE 80; RESP 18
[2019-03-12] MEDS: ATORVASTATIN 10 MG TAB PO SCH (20:56)
[2019-03-12] MEDS: QUETIAPINE 25 MG TAB PO SCH (20:57)
[2019-03-12] MEDS: SENNA TAB PO SCH (21:00)
[2019-03-13 02:00] VITALS: BP 108/67; PULSE 78; RESP 18
[2019-03-13] MEDS: VANCOMYCIN HCL 250 MG/5ML POSYG PO SCH ×2 (05:45→12:09)
[2019-03-13] MEDS: metroNIDAZOLE 500 MG TAB PO SCH (05:45)
[2019-03-13 07:30] VITALS: BP 108/77; PULSE 76; RESP 18
[2019-03-13] MEDS: RALTEGRAVIR 400 MG TAB PO SCH (08:25)
[2019-03-13] MEDS: FAMOTIDINE 20 MG TAB PO SCH (08:26)
[2019-03-13] MEDS: DIVALPROEX (ER) 500 MG TAB PO SCH (08:26)
[2019-03-13] MEDS: LACTOBACILLUS RHAMNOSUS CAP PO SCH (08:26)
[2019-03-13] MEDS: APIXABAN 5 MG TABLET PO SCH (08:26)
[2019-03-13] MEDS: DUTASTERIDE 0.5 MG CAP PO SCH (08:26)
[2019-03-13] MEDS: METOPROLOL 25 MG TAB PO SCH (08:27)
[2019-03-13] MEDS: ABACAVIR/LAMIVUDINE TAB PO SCH (08:27)
[2019-03-13] MEDS: AMIODARONE 200 MG TAB PO SCH (08:27)
--- NOTE | 2019-03-13 08:39 | PN ---
DATE: 03/13/2019 SUBJECTIVE: The patient is stable, no events overnight. OBJECTIVE: VITAL SIGNS: Blood pressure is 108/67, respirations 19, pulse 78, temperature 97.8. HEENT: Head is normocephalic. NECK: Supple. HEART: Regular rate. LUNGS: Show diminished breath sounds at the base. ABDOMEN: Soft, nontender to palpation without rebound or guarding. EXTREMITIES: Negative for clubbing, cyanosis, no edema. DERMATOLOGIC: No rashes. MUSCULOSKELETAL: No joint effusion. NEUROLOGIC: No change in exam. MEDICATIONS: The patient's medications have been reviewed. LABORATORY DATA: Reviewed. IMAGING STUDIES: Reviewed. ASSESSMENT AND PLAN: 1. Nonoliguric acute kidney injury on top of chronic kidney disease with previous baseline creatinin e around 1.3 to 1.4 mg/dL. Etiology of acute kidney injury is secondary to hemodynamics, tubular inj ury. Renal function has slowly been improving. Continue current treatment plans, supportive care, r enally dose all medications. 2. Hypomagnesemia, improved. 3. Anemia. Continue to monitor hemoglobin and hematocrit levels. 4. Mineral bone disorder, monitor calcium and phosphorus levels. 5. Hypertension. Continue current blood pressure regimen. 6. Urinary tract infection. Continue current antibiotic regimen. 7. Human immunodeficiency virus. Continue HAART. 8. Clostridium difficile. Continue vancomycin and Flagyl. 9. Arrhythmia. Continue medical management. Followup with Cardiology. 10. Gait disturbance, dysarthria. Continue to monitor. Continue physical therapy. Dictated By: EFRAIN LEMOS DO NR/NTS Conf#: [id number] DID#: [id number] CC: PADMA VALDEZ MD; MAMTA CHILDS MD; SRINIVAS PARKER DO;*EndCC*
--- NOTE | 2019-03-13 10:01 | DS ---
Date/Time of Note Date/Time of Note DATE: 03/13/19 TIME: 09:59 Discharge Summary Admission/Discharge Info Admit Date/Time Mar 04, 2019 at 22:00 Discharge Date/Time Discharge Diagnosis 1. Toxic metabolic encephalopathy, improved 2. HIV positive. 3. C Diff Colitis 4. BPH. 5. Hypertension. 6. Improvements in self-care and mobility and cognition. Patient Condition: Good Hospital Course The patient was admitted for comprehensive interdisciplinary rehabilitation and made steady functional gains from a Mod level to an Independent/ NV level for self care tasks and mobility including ambulating over 150 feet with the use of a FWW. Patient was noted to have C diff Colitis during the course of the stay, and treated with appropriate antibiotics. Patient is being discharged home with the recommendation of home health PT, OT and RN follow up. The DC meds are per the medication reconciliation sheet. The discharge equipment recommendations include: FWW, BSC, shower chair. The patient will follow up with PMD upon DC. Home Meds Reported Medications Tramadol HCl (Tramadol HCl) 50 Mg Tablet, 50 MG PO Q6 PRN for PAIN 03/04/19 Quetiapine Fumarate* (Seroquel*) 50 Mg Tablet, 50 MG PO HS 03/04/19 Throat Lozenges* (Cepastat*) 9 Griselda Lozenge, 1 LOZENGE MT Q1H PRN for SORE THROAT 03/04/19 Magnesium Hydroxide* (Milk Of Magnesia*) 400 Mg/5 Ml Oral.susp, 30 ML PO DAILY PRN for GASTROINTESTINAL UPSET 03/04/19 Famotidine* (Famotidine*) 20 Mg Tablet, 20 MG PO DAILY 03/04/19 Docusate Sodium* (Colace*) 100 Mg Capsule, 100 MG PO DAILY PRN for CONSTIPATION 03/04/19 Ceftriaxone Na/Dextrose,Iso (Ceftriaxone 1 gm Piggyback) 1 Gm/50 Ml Froz.piggy, 1 GM IV DAILY 03/04/19 Atorvastatin Calcium (Atorvastatin Calcium) 10 Mg Tablet, 10 MG PO QHS 03/04/19 Acetaminophen* (Acetaminophen*) 650 Mg Tablet, 650 MG PO Q6H PRN for PAIN AND OR ELEVATED TEMP 03/04/19 Amiodarone Hcl* (Amiodarone Hcl*) 200 Mg Tablet, 200 MG PO DAILY, #30 TAB 02/27/19 Raltegravir Potassium* (Isentress*) 400 Mg Tablet, 400 MG PO BID, TAB 02/27/19 Abacavir Sulfate/Lamivudine (Abacavir-Lamivudine 600-300 mg) 1 Each Tablet, 1 TAB PO DAILY 02/27/19 Dutasteride* (Avodart*) 0.5 Mg Capsule, 0.5 MG PO DAILY, CAP 02/27/19 Quetiapine Fumarate* (Quetiapine Fumarate*) 25 Mg Tablet, 25 MG PO BID, TAB 02/27/19 Pravastatin Sodium* (Pravastatin Sodium*) 10 Mg Tablet, 10 MG PO HS, TAB 02/27/19 Doxazosin Mesylate* (Doxazosin Mesylate*) 4 Mg Tablet, 4 MG PO HS, TAB 02/27/19 Metoprolol Tartrate* (Lopressor*) 50 Mg Tab, 50 MG PO BID, #60 TAB 02/27/19 Divalproex Sodium* (Depakote ER*) 500 Mg Tabsr, 500 MG PO BID, #30 TAB.SA 02/27/19 Primary Care Provider Not On Staff Doctor MAMTA CHILDS MD Mar 13, 2019 10:01
--- NOTE | 2019-03-13 11:50 | PN ---
Date/Time of Note Date/Time of Note DATE: 03/13/19 TIME: 11:47 Assessment/Plan VTE Prophylaxis Risk score (from Ns)>0 risk: 4 SCD applied (from Ns): No SCD contraindicated: other Pharmacological prophylaxis: apixaban Lines/Catheters IV [facility]from [facility] Saline Lock Urinary Cath still in place: No Assessment/Plan Hospital Course SUBJECTIVE:Stable bp. had 1 BM today. OBJECTIVE: Vital signs-see below PHYSICAL EXAM: Constitutional: Adequately built,not in acute distress. HEENT: Head atraumatic and normocephalic. Eyes: Extraocular muscles intact. Anicteric sclerae. Pupils equal bilaterally, reactive to light. NECK: Supple without lymph node. CHEST: Clear and good breath sounds equally. No wheezing. No rhonchi. HEART: S1, S2. Regular rate and rhythm. ABDOMEN: Soft/non tender with no rebound tenderness. Bowel sounds were present. EXTREMITIES: No cyanosis, clubbing or edema. NEUROLOGIC:+Mild dysarthria. Alert and oriented x3. No focal deficit. No sensory deficit. PSYCHOSOCIAL: No signs of depression. INTEGUMENTARY: No open wounds. ASSESSMENT AND PLAN Dysarthria/gait disturbance -Questionable encephalopathy in HIV complicated by UTI -s/p neurology work-up. No acute focal REVENUE ANALYST etiologies. -No LP studies recommended by neuro. -Continue PT/ST/OT C. difficile colitis -Diarrhea resolved -received.vanco+flagylx1 wk->now ok on single regimen w/flagylx1 wk Acute kidney injury on CKD -Renal function improved -Being followed by instructor robotics. Paroxysmal atrial fibrillation/flutter -Being followed by cardiology. -On eliquis/BB/amiodarone HIV -on HAART UTI -s/p abx. BPH -Cardura has been stopped secondary to hypotension. Hypertension -stable. BP meds w/parameters 2/2hypotension. Dyslipidemia -On statin Anxiety/sleep disorders -Continue Seroquel DVT prophylaxis: eliquis Agree w/dc plan on 1 more wk on Flagyl. cont.current meds. Patient was seen in collaboration with Dr. Bush Result Diagram: 03/09/19 0645 03/12/19 0627 Exam/Review of Systems Exam Vitals Vital Signs Date Temp Pulse Resp B/P (MAP) Pulse Ox O2 O2 Flow FiO2 Time Delivery Rate 03/13/19 98.0 76 18 108/77 93 Room Air 07:30 (87) Intake and Output 03/12/19 03/12/19 03/13/19 1515:00 23:00 07:00 IntakeIntake Total 480 ml 480 ml 1030 ml OutputOutput Total 200 ml 200 ml 1100 ml BalanceBalance 280 ml 280 ml -70 ml Medications Medication Current Medications Abacavir/ Lamivudine (Epzicom) 1 tab DAILY PO Last administered on 03/13/19 08:27; Admin Dose 1 TAB; Start 03/05/19 at 09:00 Divalproex Sodium (Depakote Er) 500 mg BID PO Last administered on 03/13/19 08:26; Admin Dose 500 MG; Start 03/05/19 at 09:00 Dutasteride (Avodart) 0.5 mg DAILY PO Last administered on 03/13/19 08:26; Admin Dose 0.5 MG; Start 03/05/19 at 09:00 Miscellaneous Medication (Isentress) 400 mg BID PO Last administered on 03/13/19 08:25; Admin Dose 400 MG; Start 03/05/19 at 09:00 Ondansetron HCl (Zofran Inj) 4 mg Q4H PRN IV NAUSEA AND/OR VOMITING; Start 03/04/19 at 23:30 Acetaminophen (Tylenol Tab) 650 mg Q6H PRN PO MILD PAIN(1-3)OR ELEVATED TEMP Last administered on 03/12/19at 13:03; Admin Dose 650 MG; Start 03/05/19 at 00:00 Atorvastatin Calcium (Lipitor) 10 mg HS PO Last administered on 03/12/19at 20:56 ; Admin Dose 10 MG; Start 03/05/19 at 21:00 Docusate Sodium (Colace) 100 mg BID PRN PO CONSTIPATION; Start 03/05/19 at 00:00 Famotidine (Pepcid) 20 mg DAILY PO Last administered on 03/13/19 08:26; Admin Dose 20 MG; Start 03/05/19 at 09:00 Magnesium Hydroxide (Milk Of Mag) 30 ml DAILY PRN PO CONSTIPATION; Start 03/05/19 at 00:00 Phenol (Cepastat Lozenge) 1 lozenge Q1H PRN MT SORE THROAT; Start 03/05/19 at 00:00 Tramadol HCl (Ultram) 50 mg Q6H PRN PO MODERATE PAIN LEVEL 4-6 Last administered on 03/12/19 16:59; Admin Dose 50 MG; Start 03/05/19 at 00:00 Senna (Senokot) 1 tab HS PO Last administered on 03/05/19 20:58; Admin Dose 1 TAB; Start 03/05/19 at 21:00 Lactulose (Enulose) 20 gm DAILY PRN PO CONSTIPATION; Start 03/05/19 at 00:00 Bisacodyl (Dulcolax Supp) 10 mg DAILY PRN [place] CONSTIPATION; Start 03/05/19 at 00:00 IV Flush (NS 3 ml) 3 ml Q8H and PRN adm IV ; Start 03/05/19 at 01:30 Lactobacillus Acidophilus/ Rhamnosus (Culturelle) 1 cap BID PO Last administered on 03/13/19 08:26; Admin Dose 1 CAP; Start 03/07/19 at 21:00 Apixaban (Eliquis) 2.5 mg BID PO Last administered on 03/13/19 08:26; Admin Dose 2.5 MG; Start 03/07/19 at 11:30 Vancomycin HCl (Vancomycin Oral Syringe) 125 mg Q6 PO Last administered on 03/13/19 05:45; Admin Dose 125 MG; Start 03/08/19 at 15:00; Stop 03/15/19 at 14:59 Metronidazole (Flagyl) 500 mg Q8 PO Last administered on 03/13/19 05:45; Admin Dose 500 MG; Start 03/08/19 at 22:00; Stop 03/19/19 at 21:59 Amiodarone HCl (Cordarone) 200 mg BID PO Last administered on 03/13/19 08:27; Admin Dose 200 MG; Start 03/09/19 at 21:00 Metoprolol Tartrate (Lopressor) 12.5 mg BID PO Last administered on 03/12/19 21:11; Admin Dose 12.5 MG; Start 03/09/19 at 21:00 Quetiapine Fumarate (Seroquel) 50 mg HS PO Last administered on 03/12/19 20:57; Admin Dose 50 MG; Start 03/11/19 at 21:00 AGNES LAMA NP Mar 13, 2019 11:50
--- NOTE | 2019-03-14 10:09 | RADRPT ---
Vent Rate: 76 bpm RR Interval: 787 msec [place] Interval: [id number] msec QRS Duration: 92 msec QT Interval: 457 msec QTC Interval: 515 msec P-R-T Calvin: [id number] - 73 - 57 degrees Atrial flutter...A-rate 230 Prolonged QT interval...QTc >500mS Electronically Signed By: Morales Goode
== END 2019-03-13 12:45 | disposition home health service (06) | DRG 92 ==
LOC: VRC 22:00
PROVIDERS: ADMIT Physical Medicine & Rehabilitation; ATTEND Internal Medicine Pulmonary Disease
PROC: F07Z5ZZ Bed Mobility Treatment (ICD-10-PCS; principal; 2019-03-04)
PROC: F08Z2ZZ Grooming/Personal Hygiene Treatment (ICD-10-PCS; 2019-03-04)
DX: G92 Toxic encephalopathy (principal); B20 Human immunodeficiency virus [HIV] disease; N17.9 Acute kidney failure, unspecified; N39.0 Urinary tract infection, site not specified; A04.72 Enterocolitis due to Clostridium difficile, not specified as recurrent; I48.92 Unspecified atrial flutter; R65.10 Systemic inflammatory response syndrome (SIRS) of non-infectious origin without acute organ dysfunction; I12.9 Hypertensive chronic kidney disease with stage 1 through stage 4 chronic kidney disease, or unspecified chronic kidney disease; N18.9 Chronic kidney disease, unspecified; N40.0 Benign prostatic hyperplasia without lower urinary tract symptoms; G47.9 Sleep disorder, unspecified; I48.0 Paroxysmal atrial fibrillation; R47.1 Dysarthria and anarthria; E83.42 Hypomagnesemia; D64.9 Anemia, unspecified; E83.9 Disorder of mineral metabolism, unspecified; I49.9 Cardiac arrhythmia, unspecified; R26.9 Unspecified abnormalities of gait and mobility; E78.5 Hyperlipidemia, unspecified; F41.9 Anxiety disorder, unspecified; F31.9 Bipolar disorder, unspecified
CPT/HCPCS: 70551; 80048; 80053; 81001; 83735; 83880; 84100; 85025; 86788; 86789; 87075; 87081; 87086; 87205; 93005; 97110; 97112; 97116; 97163; 97166; 97530; 97535; J0696; J3475; J7030; J7040